=== PATIENT | female | born 1965 | race Caucasian/White ===

== ENCOUNTER → 2018-07-02 14:31 | Outpatient (CLI) | payer BC, SELFPAY ==
--- NOTE | 2018-07-02 14:48 | XR_ITS ---
XR chest 2V HISTORY: ITS.REASON: HTN ORDERING PHYSICIAN: Kentrell Ricks MD PATIENT AGE: 52 years COMPARISON: 11/01/2010 FINDINGS: The cardiomediastinal silhouette and pulmonary vascularity are within normal limits. The lungs are clear without infiltrates, suspicious nodules, or pleural effusions. No acute bony abnormalities. There are mild degenerative changes in the thoracic spine IMPRESSION: No change with no acute finding
[2018-07-02 15:06] LABS: Basophils % 0.1 % (0.1-2.0); Eosinophils % 0.1 % (0.1-12.0); Hematocrit 36.9 % (37.0-47.0); Hemoglobin 12.1 g/dL (12.2-16.2); Lymphocytes # 1.1 K/mm3 (0.7-4.5); Mean Corpuscular HGB Conc 32.8 g/dL (31.8-35.4); Mean Corpuscular Hemoglobin 28.9 pg (27.0-31.2); Mean Corpuscular Volume 88.1 fl (81-99); Mean Platelet Volume 7.4 fl (7.4-10.4); Monocytes # 0.2 K/mm3 (0.1-1.0); Monocytes % 6.7 % (1.7-9.3); Neutrophils # 2.2 K/mm3 (1.8-7.8); Neutrophils % 62.1 % (37.0-80.0); Platelet Count 166 K/mm3 (142-424); Red Blood Count 4.19 M/mm3 (4.20-5.40); Red Cell Distribution Width 13.1 % (11.5-17.5); White Blood Count 3.5 K/mm3 (4.8-10.8)
[2018-07-02 15:52] LABS: Alanine Aminotransferase 40 U/L (12-78); Albumin Level 3.7 gm/dL (3.4-5.0); Albumin/Globulin Ratio 0.9 (1.1-1.8); Alkaline Phosphatase 147 U/L (46-116); Aspartate Amino Transferase 33 U/L (15-37); Bilirubin,Total 0.3 mg/dL (0.2-1.0); Blood Urea Nitrogen 11 mg/dL (7-18); Calcium 8.7 mg/dL (8.5-10.1); Carbon Dioxide 27 mmol/L (21.0-32.0); Chloride 107 mmol/L (98-107); Creatinine,Serum 0.77 mg/dL (0.55-1.02); Estimated Glomerular Filt Rate 79 ml/min (>60); GFR (African American) 95 ML/MIN (>60); Globulin 4.1 gm/dl (1.3-3.2); Glucose 94 mg/dL (74-106); Sodium 143 mmol/L (136-145); Total Protein,Serum 7.8 gm/dL (6.4-8.2)
== END ==
PROVIDERS: PCP Family Medicine; Visit Provider Otolaryngology
DX: Z01.818 Encounter for other preprocedural examination (principal); J38.1 Polyp of vocal cord and larynx; R49.0 Dysphonia
CPT/HCPCS: 36415; 71046; 80053; 85025; 93005

== ENCOUNTER → 2018-10-05 07:30 | Outpatient (CLI) | payer BC, SELFPAY ==
[2018-10-05 08:16] LABS: Alanine Aminotransferase 40 U/L (12-78); Albumin Level 3.7 gm/dL (3.4-5.0); Alkaline Phosphatase 148 U/L (46-116); Aspartate Amino Transferase 26 U/L (15-37); Bilirubin,Total 0.6 mg/dL (0.2-1.0); Blood Urea Nitrogen 17 mg/dL (7-18); Calcium 8.8 mg/dL (8.5-10.1); Carbon Dioxide 27 mmol/L (21.0-32.0); Chloride 103 mmol/L (98-107); Chol/HDL Ratio 3.8 (1-3.5); Cholesterol 160 mg/dL (140-200); Creatinine,Serum 0.87 mg/dL (0.55-1.02); Estimated Glomerular Filt Rate 68 ml/min (>60); GFR (African American) 82 ML/MIN (>60); Globulin 3.8 gm/dl (1.3-3.2); HDL Cholesterol 42 mg/dL (29-89); LDL Cholesterol 95 mg/dL (0-130); Sodium 139 mmol/L (136-145); Total Protein,Serum 7.5 gm/dL (6.4-8.2); Triglycerides 115 mg/dL (30-200); VLDL Cholesterol 23 mg/dL (0-40)
[2018-10-05 08:36] LABS: Glucose 156 mg/dL (74-106)
[2018-10-05 15:13] LABS: Hemoglobin A1C 6.2 % (0.0-7.0)
== END ==
PROVIDERS: Visit Provider Physician Assistant
DX: R73.01 Impaired fasting glucose (principal); I10 Essential (primary) hypertension; Z13.220 Encounter for screening for lipoid disorders
CPT/HCPCS: 36415; 80053; 80061; 83036

== ENCOUNTER → 2018-11-01 15:50 | Outpatient (CLI) | payer BC, SELFPAY ==
--- NOTE | 2018-11-01 16:11 | MM_ITS ---
MM Dig screening mamm BI w/CAD CAD Screening COMPARISON: None, patient had previous mammograms at [facility] but they are not available for review INDICATION: There is no personal or family history of breast cancer TECHNIQUE: Standard CC and MLO images were obtained. R2 CAD reviewed. FINDINGS: Scattered fibroglandular densities are seen in the central portions of both breast and the findings are bilateral and symmetrical. There are multiple benign-appearing calcifications in each breast many of which appear to be secondary to secretory disease. There is no suspicious lesion and there are no suspicious microcalcifications. IMPRESSION: Fibrofatty parenchyma no suspicious lesion seen BI-RADS Category: 2 Benign Finding(s) RECOMMENDED FOLLOW-UP: 1YR - 1 YEAR FOLLOW-UP (A letter has been sent to the patient regarding results of the study.)
== END ==
PROVIDERS: PCP Family Medicine; Visit Provider Family Medicine
DX: Z12.31 Encounter for screening mammogram for malignant neoplasm of breast (principal)
CPT/HCPCS: 77067

== ENCOUNTER → 2018-11-21 15:52 | Outpatient (CLI) | payer BC, SELFPAY ==
--- NOTE | 2018-11-21 | XR_ITS ---
XR ankle LT 2V HISTORY: Pain and swelling, osteoarthritis ORDERING PHYSICIAN: France Mejia PATIENT AGE: 53 years Comparison: None FINDINGS: No fracture or dislocation. No lytic or blastic change. There is normal mineralization.. There is mild bony hypertrophic changes of the distal tibia posteriorly and at the medial malleoli region. Subcortical lucency is noted involving the medial aspect of the talar dome. This area measures approximate 7 mm and may be due to a subcortical cyst. However, an osteochondral defect is an additional consideration. MRI or CT may provide further evaluation. There is a small calcaneal spur IMPRESSION: 1. Mild degenerative change. 2. Subarticular cyst versus osteochondral defect of the medial talar dome. Consider further evaluation with MRI or CT if clinically warranted
--- NOTE | 2018-11-21 | XR_ITS ---
XR hand RT min 3V HISTORY: Pain and swelling, osteoarthritis ORDERING PHYSICIAN: France Mejia PATIENT AGE: 53 years COMPARISON: None FINDINGS: No fracture or dislocation. No lytic or blastic change. There is normal mineralization.. The joint spaces are well-preserved. No significant degenerative/arthritic changes. No erosive changes evident.. IMPRESSION: Negative, no acute finding
--- NOTE | 2018-11-21 | XR_ITS ---
XR wrist RT 2V HISTORY ITS.REASON: PAIN AND SWELLING ON JOINTS, OSTEOARTHRITIS ORDERING PHYSICIAN: France Mejia PATIENT AGE: 53 years Comparison: None FINDINGS: No fracture or dislocation. No lytic or blastic change. There is normal mineralization.. There is exostosis along the distal aspect of the radius laterally well-circumscribed etiology indeterminate. No previous exams available for comparison. There is an accessory center of ossification versus an old fracture at the ulnar side only. The joint spaces are well-preserved and no erosive changes are apparent.. IMPRESSION: No acute finding. Bony exostosis on the distal radius laterally
--- NOTE | 2018-11-21 | XR_ITS ---
XR ankle RT 2V HISTORY: Pain and swelling, osteoarthritis ORDERING PHYSICIAN: France Mejia PATIENT AGE: 53 years Comparison: None FINDINGS: No fracture or dislocation. No lytic or blastic change. There is normal mineralization.. Hypertrophic changes are present involving the tip of the medial malleolus as well as the distal aspect of the tibia. There is a prominent calcaneal spur and there are hypertrophic changes of the talonavicular joint. IMPRESSION: 1. Degenerative changes with bony hypertrophy, prominent calcaneal spur. 2. Otherwise negative
--- NOTE | 2018-11-21 | XR_ITS ---
XR hand LT min 3V HISTORY: Pain and swelling ORDERING PHYSICIAN: France Mejia PATIENT AGE: 53 years COMPARISON: None FINDINGS: No fracture or dislocation. No lytic or blastic change. There is normal mineralization.. The joint spaces are well-preserved. No significant degenerative/arthritic changes. No erosive changes evident.. IMPRESSION: Negative, no acute finding
--- NOTE | 2018-11-21 | XR_ITS ---
XR elbow LT 2V HISTORY: Pain and swelling, osteoarthritis ORDERING PHYSICIAN: France Mejia PATIENT AGE: 53 years COMPARISON: None FINDINGS: No fracture or dislocation. The joint spaces are well-preserved. Well-circumscribed lucency is noted along the medial epicondyles and could represent an old injury versus an ununited ossification center. No displaced fat pad evident. IMPRESSION: No acute finding
[2018-11-21 18:05] LABS: Erythrocyte Sedimentation Rate 60 mm/hr (0-30)
[2018-11-24 11:57] LABS: Antinuclear Antibodies, IFA Positive (.)
== END ==
PROVIDERS: Visit Provider Internal Medicine Rheumatology
DX: M19.90 Unspecified osteoarthritis, unspecified site (principal)
CPT/HCPCS: 36415; 73070; 73100; 73130; 73600; 85651; 86038; 86140

== ENCOUNTER → 2019-06-19 12:58 | Outpatient (CLI) | payer BC, SELFPAY ==
[2019-06-19 13:11] LABS: Eosinophils % 0.2 % (0.1-12.0); Hematocrit 37.4 % (37.0-47.0); Hemoglobin 12.4 g/dL (12.2-16.2); Lymphocytes # 0.9 K/mm3 (0.7-4.5); Lymphocytes % 28.2 % (10-50); Mean Corpuscular HGB Conc 33.3 g/dL (31.8-35.4); Mean Corpuscular Hemoglobin 29.8 pg (27.0-31.2); Mean Corpuscular Volume 89.7 fl (81-99); Mean Platelet Volume 9.2 fl (7.4-10.4); Monocytes # 0.3 K/mm3 (0.1-1.0); Monocytes % 8.8 % (1.7-9.3); Neutrophils % 62.8 % (37.0-80.0); Platelet Count 177 K/mm3 (142-424); Red Blood Count 4.17 M/mm3 (4.20-5.40); Red Cell Distribution Width 12.6 % (11.5-17.5); White Blood Count 3.2 K/mm3 (4.8-10.8)
[2019-06-19 13:20] LABS: C-Reactive Protein 1.8 mg/dL (0.0-0.9)
[2019-06-19 14:04] LABS: Erythrocyte Sedimentation Rate > 140 mm/hr (0-30)
== END ==
PROVIDERS: Visit Provider Orthopaedic Surgery
DX: L03.011 Cellulitis of right finger (principal); E11.9 Type 2 diabetes mellitus without complications; Z79.84 Long term (current) use of oral hypoglycemic drugs
CPT/HCPCS: 36415; 83036; 85025; 85651; 86140; 87070; 87077; 87186; 87205

== ENCOUNTER → 2019-06-19 16:08 | Outpatient (CLI) | payer BC, SELFPAY | PROVIDERS: Visit Provider Orthopaedic Surgery | DX: L03.011 Cellulitis of right finger (principal) | CPT/HCPCS: 87070; 87205 ==

== ENCOUNTER → 2019-07-02 06:59 | Outpatient (CLI) | payer BC, SELFPAY ==
[2019-07-02 07:41] LABS: Eosinophils % 0.3 % (0.1-12.0); Hematocrit 37.2 % (37.0-47.0); Hemoglobin 12.5 g/dL (12.2-16.2); Lymphocytes % 26.7 % (10-50); Mean Corpuscular HGB Conc 33.5 g/dL (31.8-35.4); Mean Corpuscular Volume 89.7 fl (81-99); Mean Platelet Volume 8.3 fl (7.4-10.4); Monocytes # 0.3 K/mm3 (0.1-1.0); Monocytes % 6.9 % (1.7-9.3); Neutrophils # 2.5 K/mm3 (1.8-7.8); Neutrophils % 66.1 % (37.0-80.0); Platelet Count 187 K/mm3 (142-424); Red Blood Count 4.15 M/mm3 (4.20-5.40); Red Cell Distribution Width 12.8 % (11.5-17.5); White Blood Count 3.7 K/mm3 (4.8-10.8)
[2019-07-02 07:50] LABS: C-Reactive Protein 0.7 mg/dL (0.0-0.9)
[2019-07-02 08:04] LABS: Alanine Aminotransferase 33 U/L (12-78); Albumin Level 3.7 gm/dL (3.4-5.0); Albumin/Globulin Ratio 1.9 (1.1-1.8); Alkaline Phosphatase 134 U/L (46-116); Anion Gap 14.2 mEq/L (5-15); Aspartate Amino Transferase 12 U/L (15-37); Bilirubin,Total 0.4 mg/dL (0.2-1.0); Blood Urea Nitrogen 21 mg/dL (7-18); Calcium 8.9 mg/dL (8.5-10.1); Carbon Dioxide 27 mmol/L (21.0-32.0); Chloride 104 mmol/L (98-107); Chol/HDL Ratio 3.8 (1-3.5); Cholesterol 162 mg/dL (140-200); Creatinine,Serum 0.95 mg/dL (0.55-1.02); Estimated Glomerular Filt Rate 62 ml/min (>60); Ferritin 218 ng/mL (8-388); GFR (African American) 74 ML/MIN (>60); Glucose 135 mg/dL (74-106); HDL Cholesterol 43 mg/dL (29-89); LDL Cholesterol 102 mg/dL (0-130); Potassium 4.2 mmoL/L (3.5-5.1); Sodium 141 mmol/L (136-145); Total Protein,Serum 5.7 gm/dL (6.4-8.2); Triglycerides 86 mg/dL (30-200); VLDL Cholesterol 17 mg/dL (0-40)
[2019-07-02 09:52] LABS: Erythrocyte Sedimentation Rate 50 mm/hr (0-30)
[2019-07-03 07:09] LABS: Iron 65 ug/dL (27-159); UIBC 215 ug/dL (131-425)
[2019-07-04 07:16] LABS: Iron Saturation 23 % (15-55); Vitamin B12 314 pg/mL (232-1245)
[2019-07-04 07:17] LABS: Vitamin D 25 Hydroxy 14.6 ng/mL (30.0-100.0)
== END ==
PROVIDERS: Internal Medicine Rheumatology; Visit Provider Physician Assistant
DX: D50.9 Iron deficiency anemia, unspecified (principal); E53.8 Deficiency of other specified B group vitamins; E55.9 Vitamin D deficiency, unspecified; I10 Essential (primary) hypertension; Z13.220 Encounter for screening for lipoid disorders
CPT/HCPCS: 36415; 80053; 80061; 82607; 82652; 82728; 83540; 83550; 85025; 85651; 86140

== ENCOUNTER → 2019-10-21 15:38 | Outpatient (CLI) | payer BC, SELFPAY ==
[2019-10-21 15:55] LABS: Basophils % 0.1 % (0.1-2.0); Eosinophils % 0.5 % (0.1-12.0); Hematocrit 40.5 % (37.0-47.0); Hemoglobin 12.6 g/dL (12.2-16.2); Lymphocytes # 0.9 K/mm3 (0.7-4.5); Lymphocytes % 18.2 % (10-50); Mean Corpuscular HGB Conc 31.2 g/dL (31.8-35.4); Mean Corpuscular Hemoglobin 28.3 pg (27.0-31.2); Mean Corpuscular Volume 90.6 fl (81-99); Mean Platelet Volume 9.4 fl (7.4-10.4); Monocytes # 0.3 K/mm3 (0.1-1.0); Monocytes % 6.8 % (1.7-9.3); Neutrophils # 3.6 K/mm3 (1.8-7.8); Neutrophils % 74.4 % (37.0-80.0); Platelet Count 168 K/mm3 (142-424); Red Blood Count 4.47 M/mm3 (4.20-5.40); Red Cell Distribution Width 13.4 % (11.5-17.5); White Blood Count 4.8 K/mm3 (4.8-10.8)
[2019-10-21 16:21] LABS: Erythrocyte Sedimentation Rate 71 mm/hr (0-30)
[2019-10-21 17:16] LABS: Alanine Aminotransferase 22 U/L (12-78); Alkaline Phosphatase 147 U/L (46-116); Anion Gap 12.5 mEq/L (5-15); Aspartate Amino Transferase 18 U/L (15-37); Bilirubin,Total 0.2 mg/dL (0.2-1.0); Blood Urea Nitrogen 16 mg/dL (7-18); Calcium 8.7 mg/dL (8.5-10.1); Carbon Dioxide 29 mmol/L (21.0-32.0); Chloride 105 mmol/L (98-107); Creatinine,Serum 0.68 mg/dL (0.55-1.02); Estimated Glomerular Filt Rate 90 ml/min (>60); GFR (African American) 109 ML/MIN (>60); Glucose 84 mg/dL (74-106); Potassium 4.5 mmoL/L (3.5-5.1); Sodium 142 mmol/L (136-145); Total Protein,Serum 7.1 gm/dL (6.4-8.2)
[2019-10-21 17:46] LABS: Albumin Level 3.8 gm/dL (3.4-5.0); Albumin/Globulin Ratio 1.2 (1.1-1.8); C-Reactive Protein < 0.2 mg/dL (0.0-0.9); Globulin 3.3 gm/dl (1.3-3.2)
== END ==
PROVIDERS: Visit Provider Internal Medicine Rheumatology
DX: M06.9 Rheumatoid arthritis, unspecified (principal); Z79.899 Other long term (current) drug therapy
CPT/HCPCS: 36415; 80053; 85025; 85651; 86140

== ENCOUNTER → 2020-01-31 17:00 | Outpatient (CLI) | payer BC, SELFPAY ==
[2020-01-31 17:31] LABS: Basophils % 0.1 % (0.1-2.0); Eosinophils % 0.5 % (0.1-12.0); Hematocrit 36.6 % (37.0-47.0); Hemoglobin 12.1 g/dL (12.2-16.2); Lymphocytes % 20.8 % (10-50); Mean Corpuscular Hemoglobin 29.4 pg (27.0-31.2); Mean Corpuscular Volume 89.2 fl (81-99); Mean Platelet Volume 9.3 fl (7.4-10.4); Monocytes # 0.3 K/mm3 (0.1-1.0); Monocytes % 5.3 % (1.7-9.3); Neutrophils # 3.7 K/mm3 (1.8-7.8); Neutrophils % 73.2 % (37.0-80.0); Platelet Count 153 K/mm3 (142-424); Red Blood Count 4.11 M/mm3 (4.20-5.40)
[2020-01-31 17:38] LABS: Alanine Aminotransferase 26 U/L (12-78); Albumin Level 4.4 g/dl (3.5-5.0); Albumin/Globulin Ratio 1.5 (1.1-1.8); Alkaline Phosphatase 146 U/L (38-126); Anion Gap 9.1 mEq/L (5-15); Aspartate Amino Transferase 32 U/L (14-36); Bilirubin,Total 0.2 mg/dl (0.2-1.3); Blood Urea Nitrogen 29 mg/dl (7-17); Calcium 9.5 mg/dl (8.4-10.2); Carbon Dioxide 29 mmol/L (22.0-30.0); Chloride 102 mmol/L (98-107); Estimated Glomerular Filt Rate 65 ml/min (>60); GFR (African American) 79 ML/MIN (>60); Glucose 92 mg/dl (74-100); Potassium 4.1 mmoL/L (3.5-5.1); Sodium 136 mmol/L (136-145); Total Protein,Serum 7.4 g/dl (6.3-8.2)
[2020-01-31 17:43] LABS: C-Reactive Protein 7.7 mg/L (0-4)
[2020-01-31 17:56] LABS: Erythrocyte Sedimentation Rate 60 mm/hr (0-30)
== END ==
PROVIDERS: Visit Provider Internal Medicine Rheumatology
DX: M06.9 Rheumatoid arthritis, unspecified (principal); Z79.899 Other long term (current) drug therapy
CPT/HCPCS: 36415; 80053; 85025; 85651; 86140

== ENCOUNTER → 2020-03-03 16:14 | Outpatient (CLI) | payer BC, SELFPAY ==
--- NOTE | 2020-03-03 16:18 | MM_ITS ---
PROCEDURE: MM DIG SCREENING MAMM BI W/CAD Digital Breast Tomosynthesis Included CLINICAL INDICATION: SCREENING There is no personal or family history of breast cancer. COMPARISON: [facility] MM Dig screening mamm BI w/CAD from 11/01/2018 TECHNIQUE: Standard CC and MLO images and 3D Tomosynthesis was obtained. R2 CAD reviewed. FINDINGS: Minimal scattered fibroglandular densities are seen throughout both breasts on a background of fatty breast parenchyma. Multiple somewhat tubular calcifications are again seen typical of secretory disease. There is no suspicious lesion in either breast and no suspicious microcalcifications. IMPRESSION: Stable exam with no suspicious lesions seen BI-RAD Category: 2 Benign Finding(s) FOLLOW-UP: 1YR 1 Year Follow-up (A letter has been sent to the patient regarding results of the study.) Dictated by: Dr. Vik Salinas MD 03/05/2020 13:[address] Vik Salinas MD in [place] 03/05/2020 13:59
--- NOTE | 2020-03-03 16:19 | XR_ITS ---
PROCEDURE: XR DEXA AXIAL SKELETON CLINICAL HISTORY: POST MENOPAUSAL COMPARISON: No exams were available for comparison FINDINGS: Right femoral neck density is 0.678 grams/centimeters sq with T-score of -1 point Left femoral neck density is 0.663 grams/centimeters sq with a T-score of -1.7 L1-L4 density is 0.774 grams/centimeters sq with a T-score of -2.5 indicating osteoporosis. IMPRESSION: Osteoporosis with high fracture risk. Treatment advised. Suggest follow-up exam in 1 year Dictated by: Mega Tapia MD 03/03/2020 17:09 Electronically signed by Mega Tapia MD in [place] 03/03/2020 17:09
== END ==
PROVIDERS: PCP Family Medicine; Visit Provider Physician Assistant
DX: Z12.31 Encounter for screening mammogram for malignant neoplasm of breast (principal); Z78.0 Asymptomatic menopausal state
CPT/HCPCS: 77063; 77067; 77080

== ENCOUNTER → 2020-03-31 08:49 | Outpatient (CLI) | payer BC, SELFPAY ==
[2020-04-04 06:50] LABS: QuantiFERON-TB Gold Plus Negative (Negative)
== END ==
PROVIDERS: Visit Provider Internal Medicine Rheumatology
DX: Z51.81 Encounter for therapeutic drug level monitoring (principal); M06.9 Rheumatoid arthritis, unspecified
CPT/HCPCS: 36415; 86480

== ENCOUNTER → 2020-08-27 16:13 | Outpatient (CLI) | payer BC, SELFPAY ==
[2020-08-27 16:25] LABS: Basophils % 0.1 % (0.1-2.0); Eosinophils % 0.1 % (0.1-12.0); Hematocrit 38.6 % (37.0-47.0); Hemoglobin 12.9 g/dL (12.2-16.2); Lymphocytes # 1.1 K/mm3 (0.7-4.5); Mean Corpuscular HGB Conc 33.3 g/dL (31.8-35.4); Mean Corpuscular Hemoglobin 30.3 pg (27.0-31.2); Mean Platelet Volume 10.3 fl (7.4-10.4); Monocytes # 0.3 K/mm3 (0.1-1.0); Monocytes % 8.9 % (1.7-9.3); Neutrophils # 2.3 K/mm3 (1.8-7.8); Platelet Count 155 K/mm3 (142-424); Red Blood Count 4.24 M/mm3 (4.20-5.40); Red Cell Distribution Width 13.5 % (11.5-17.5); White Blood Count 3.8 K/mm3 (4.8-10.8)
[2020-08-27 17:34] LABS: Erythrocyte Sedimentation Rate 124 mm/hr (0-30)
[2020-08-27 18:13] LABS: Chloride 104 mmol/L (98-107); Potassium 4.1 mmoL/L (3.5-5.1); Sodium 141 mmol/L (136-145)
[2020-08-27 18:16] LABS: Alanine Aminotransferase 24 U/L (12-78); Albumin Level 4.4 g/dl (3.5-5.0); Albumin/Globulin Ratio 1.4 (1.1-1.8); Alkaline Phosphatase 117 U/L (38-126); Anion Gap 13.1 mEq/L (5-15); Aspartate Amino Transferase 29 U/L (14-36); Bilirubin,Total 0.3 mg/dl (0.2-1.3); Blood Urea Nitrogen 22 mg/dl (7-17); Carbon Dioxide 28 mmol/L (22.0-30.0); Estimated Glomerular Filt Rate 74 ml/min (>60); GFR (African American) 90 ML/MIN (>60); Globulin 3.2 g/dL (1.3-3.2); Total Protein,Serum 7.6 g/dl (6.3-8.2)
[2020-08-27 18:17] LABS: Calcium 9.5 mg/dl (8.4-10.2); Glucose 92 mg/dl (74-100)
[2020-08-27 18:22] LABS: C-Reactive Protein 4.2 mg/L (0-4)
== END ==
PROVIDERS: Visit Provider Internal Medicine Rheumatology
DX: M06.9 Rheumatoid arthritis, unspecified (principal); Z79.899 Other long term (current) drug therapy
CPT/HCPCS: 36415; 80053; 85025; 85651; 86140

== ENCOUNTER → 2020-09-26 08:13 | Outpatient (CLI) | payer BC, SELFPAY ==
[2020-09-26 11:59] LABS: Hemoglobin A1C 5.5 % (4.0-6.0)
[2020-09-26 13:28] LABS: Chloride 104 mmol/L (98-107); Potassium 4.3 mmoL/L (3.5-5.1); Sodium 138 mmol/L (136-145)
[2020-09-26 13:30] LABS: Blood Urea Nitrogen 20 mg/dl (7-17); Estimated Glomerular Filt Rate 87 ml/min (>60); GFR (African American) 105 ML/MIN (>60)
[2020-09-26 13:31] LABS: Alanine Aminotransferase 34 U/L (12-78); Albumin Level 4.3 g/dl (3.5-5.0); Albumin/Globulin Ratio 1.4 (1.1-1.8); Alkaline Phosphatase 141 U/L (38-126); Anion Gap 12.3 mEq/L (5-15); Aspartate Amino Transferase 29 U/L (14-36); Bilirubin,Total 0.5 mg/dl (0.2-1.3); Calcium 9.2 mg/dl (8.4-10.2); Carbon Dioxide 26 mmol/L (22.0-30.0); Cholesterol 201 mg/dl (140-200); Globulin 3.1 g/dL (1.3-3.2); Glucose 116 mg/dl (74-100); Iron 81 ug/dL (37-170); Total Protein,Serum 7.4 g/dl (6.3-8.2); Triglycerides 124 mg/dl (30-150); VLDL Cholesterol 25 mg/dL (0-40)
[2020-09-26 13:32] LABS: Chol/HDL Ratio 4.2 (1-3.5); HDL Cholesterol 48 mg/dl (40-60)
[2020-09-26 13:43] LABS: Direct LDL Cholesterol 129.99 mg/dL (100-129)
[2020-09-26 13:48] LABS: 25-OH Vitamin D, Total 26.9 ng/mL (30-100)
[2020-09-26 14:06] LABS: Ferritin 115 ng/ml (11.1-264)
[2020-09-26 18:14] LABS: Vitamin B12 527 pg/mL (239-931)
== END ==
PROVIDERS: Visit Provider Physician Assistant
DX: D50.9 Iron deficiency anemia, unspecified (principal); E55.9 Vitamin D deficiency, unspecified; E53.8 Deficiency of other specified B group vitamins; I10 Essential (primary) hypertension; R73.01 Impaired fasting glucose; Z13.220 Encounter for screening for lipoid disorders; Z79.899 Other long term (current) drug therapy
CPT/HCPCS: 36415; 80053; 80061; 82306; 82607; 82728; 83036; 83540

== ENCOUNTER → 2020-12-19 07:39 | Outpatient (CLI) | payer BC, SELFPAY ==
[2020-12-19 08:31] LABS: Basophils % 0.2 % (0.1-2.0); Eosinophils % 0.3 % (0.1-12.0); Hematocrit 38.5 % (37.0-47.0); Hemoglobin 12.6 g/dL (12.2-16.2); Lymphocytes % 28.2 % (10-50); Mean Corpuscular HGB Conc 32.7 g/dL (31.8-35.4); Mean Corpuscular Hemoglobin 29.5 pg (27.0-31.2); Mean Corpuscular Volume 90.2 fl (81-99); Mean Platelet Volume 8.9 fl (7.4-10.4); Monocytes # 0.2 K/mm3 (0.1-1.0); Monocytes % 6.5 % (1.7-9.3); Neutrophils # 2.4 K/mm3 (1.8-7.8); Neutrophils % 64.8 % (37.0-80.0); Platelet Count 168 K/mm3 (142-424); Red Blood Count 4.27 M/mm3 (4.20-5.40); Red Cell Distribution Width 12.6 % (11.5-17.5); White Blood Count 3.6 K/mm3 (4.8-10.8)
[2020-12-19 09:13] LABS: Alanine Aminotransferase 29 U/L (12-78); Albumin Level 4.3 g/dl (3.5-5.0); Albumin/Globulin Ratio 1.3 (1.1-1.8); Alkaline Phosphatase 137 U/L (38-126); Anion Gap 10.2 mEq/L (5-15); Aspartate Amino Transferase 31 U/L (14-36); Bilirubin,Total 0.4 mg/dl (0.2-1.3); Blood Urea Nitrogen 25 mg/dl (7-17); Calcium 9.2 mg/dl (8.4-10.2); Carbon Dioxide 27 mmol/L (22.0-30.0); Chloride 104 mmol/L (98-107); Estimated Glomerular Filt Rate 65 ml/min (>60); GFR (African American) 79 ML/MIN (>60); Globulin 3.4 g/dL (1.3-3.2); Glucose 117 mg/dl (74-100); Potassium 4.2 mmoL/L (3.5-5.1); Sodium 137 mmol/L (136-145); Total Protein,Serum 7.7 g/dl (6.3-8.2)
[2020-12-19 09:18] LABS: C-Reactive Protein 7.3 mg/L (0-4)
[2020-12-19 10:35] LABS: Erythrocyte Sedimentation Rate 82 mm/hr (0-30)
== END ==
PROVIDERS: Visit Provider Internal Medicine Rheumatology
DX: M06.9 Rheumatoid arthritis, unspecified (principal); Z79.899 Other long term (current) drug therapy
CPT/HCPCS: 36415; 80053; 85025; 85651; 86140

== ENCOUNTER → 2021-04-21 08:02 | Outpatient (CLI) | payer BC, SELFPAY ==
[2021-04-21 08:32] LABS: Basophils % 0.1 % (0.1-2.0); Eosinophils % 0.4 % (0.1-12.0); Hematocrit 36.3 % (37.0-47.0); Hemoglobin 12.3 g/dL (12.2-16.2); Lymphocytes # 0.8 K/mm3 (0.7-4.5); Lymphocytes % 30.5 % (10-50); Mean Corpuscular Hemoglobin 30.4 pg (27.0-31.2); Mean Corpuscular Volume 89.5 fl (81-99); Monocytes # 0.2 K/mm3 (0.1-1.0); Monocytes % 8.3 % (1.7-9.3); Neutrophils # 1.6 K/mm3 (1.8-7.8); Neutrophils % 60.7 % (37.0-80.0); Platelet Count 142 K/mm3 (142-424); Red Blood Count 4.05 M/mm3 (4.20-5.40); Red Cell Distribution Width 13.1 % (11.5-17.5); White Blood Count 2.6 K/mm3 (4.8-10.8)
[2021-04-21 08:38] LABS: Chloride 106 mmol/L (98-107); Potassium 4.1 mmoL/L (3.5-5.1); Sodium 141 mmol/L (136-145)
[2021-04-21 08:41] LABS: Alanine Aminotransferase 28 U/L (12-78); Albumin Level 4.5 g/dl (3.5-5.0); Albumin/Globulin Ratio 1.3 (1.1-1.8); Alkaline Phosphatase 128 U/L (38-126); Anion Gap 12.1 mEq/L (5-15); Aspartate Amino Transferase 30 U/L (14-36); Bilirubin,Total 0.4 mg/dl (0.2-1.3); Blood Urea Nitrogen 24 mg/dl (7-17); Calcium 9.4 mg/dl (8.4-10.2); Carbon Dioxide 27 mmol/L (22.0-30.0); Estimated Glomerular Filt Rate 65 ml/min (>60); GFR (African American) 79 ML/MIN (>60); Globulin 3.5 g/dL (1.3-3.2); Glucose 129 mg/dl (74-100)
[2021-04-21 10:49] LABS: C-Reactive Protein 5.4 mg/L (0-4)
[2021-04-21 14:46] LABS: Erythrocyte Sedimentation Rate 83 mm/hr (0-30)
[2021-04-25 14:24] LABS: QuantiFERON-TB Gold Plus Negative (Negative)
== END ==
PROVIDERS: Visit Provider Internal Medicine Rheumatology
DX: Z51.81 Encounter for therapeutic drug level monitoring (principal); M19.90 Unspecified osteoarthritis, unspecified site; M06.89 Other specified rheumatoid arthritis, multiple sites
CPT/HCPCS: 36415; 80053; 85025; 85651; 86140; 86480

== ENCOUNTER → 2021-05-04 15:04 | Outpatient (CLI) | payer BC, SELFPAY ==
--- NOTE | 2021-05-04 15:08 | MM_ITS ---
PROCEDURE: MM DIG SCREENING MAMM BI W/CAD Digital Breast Tomosynthesis Included CLINICAL INDICATION: SCREENING COMPARISON: [facility] MM Dig screening mamm BI w/CAD from 11/01/2018 MG MM DIG SCREENING MAMM BI W/CAD from 03/03/2020 TECHNIQUE: Standard CC and MLO images and 3D Tomosynthesis was obtained. R2 CAD reviewed. FINDINGS: Average fibroglandular tissue. Diffuse bilateral benign secretory calcifications. No malignant appearing mass or malignant-appearing microcalcification with no significant change. IMPRESSION: No evidence of malignancy BI-RAD Category: 2 Benign Finding FOLLOW-UP: 1 YR 1 Year Follow-up (A letter has been sent to the patient regarding results of the study.) Dictated by: Mega Tapia MD 05/05/2021 09:42 Mega Tapia MD in [place] 05/05/2021 09:42
--- NOTE | 2021-05-04 15:08 | CT_ITS ---
PROCEDURE: CT SOFT TISSUE NECK WO CON CLINICAL HISTORY: MASS OF NECK COMPARISON: No exams were available for comparison TECHNIQUE: Oral Contrast: None IV Contrast: None Axial images obtained with sagittal and coronal reformats. All CT scans at the facility use one or more dose reduction, viz: automated exposure control, ma/kV adjustment per patient size (including targeted exams where dose is matched to indication, i.e. head), or iterative reconstruction technique. FINDINGS: Small retention cyst is present in the left sphenoid sinus posteriorly at approximately 8 mm. No sinus air-fluid levels. Mastoid sinuses have an unremarkable appearance. The mid and inferior aspect of the globes are unremarkable with superior aspect not imaged. No nasopharyngeal mass. The pharynx and glottic region and epiglottis are unremarkable. No thyroid mass evident. The trachea is slightly deviated toward the left in the neck. No underlying paratracheal mass however. A BB is placed along the right neck anteriorly at the level of the hyoid. Just underneath the BB is the submandibular gland which is slightly more prominent than the left side. There are few scattered small nodes lymph nodes in the submandibular region as well. No dominant adenopathy is apparent. Lung apices are clear. The parotid glands are unremarkable. IMPRESSION: The right submandibular gland is slightly more prominent than the left and may account for the palpable abnormality There are few small bilateral submandibular lymph nodes but no dominant adenopathy. Left sphenoid sinus retention cyst Dictated by: Mega Tapia MD 05/04/2021 16:47 Mega Tapia MD in [place] 05/04/2021 16:47
== END ==
PROVIDERS: PCP Family Medicine; Visit Provider Physician Assistant
DX: R22.1 Localized swelling, mass and lump, neck (principal); Z12.31 Encounter for screening mammogram for malignant neoplasm of breast
CPT/HCPCS: 70490; 77063; 77067

== ENCOUNTER → 2021-10-11 16:11 | Outpatient (CLI) | payer BC, SELFPAY ==
[2021-10-11 16:34] LABS: Basophils % 0.3 % (0.1-2.0); Eosinophils # 0.1 K/mm3 (0.0-0.4); Eosinophils % 2.5 % (0.1-12.0); Hematocrit 39.5 % (37.0-47.0); Hemoglobin 13.4 g/dL (12.2-16.2); Lymphocytes # 0.9 K/mm3 (0.7-4.5); Lymphocytes % 20.3 % (10-50); Mean Corpuscular HGB Conc 33.9 g/dL (31.8-35.4); Mean Corpuscular Hemoglobin 30.7 pg (27.0-31.2); Mean Corpuscular Volume 90.4 fl (81-99); Mean Platelet Volume 8.9 fl (7.4-10.4); Monocytes # 0.3 K/mm3 (0.1-1.0); Monocytes % 6.3 % (1.7-9.3); Neutrophils # 3.2 K/mm3 (1.8-7.8); Neutrophils % 70.6 % (37.0-80.0); Platelet Count 174 K/mm3 (142-424); Red Blood Count 4.37 M/mm3 (4.20-5.40); Red Cell Distribution Width 12.7 % (11.5-17.5); White Blood Count 4.6 K/mm3 (4.8-10.8)
[2021-10-11 17:15] LABS: Erythrocyte Sedimentation Rate 57 mm/hr (0-30)
[2021-10-11 17:26] LABS: Chloride 100 mmol/L (98-107); Sodium 139 mmol/L (136-145)
[2021-10-11 17:27] LABS: Potassium 3.7 mmoL/L (3.5-5.1)
[2021-10-11 17:29] LABS: Alanine Aminotransferase 24 U/L (12-78); Alkaline Phosphatase 139 U/L (38-126); Aspartate Amino Transferase 31 U/L (14-36); Bilirubin,Total 0.3 mg/dl (0.2-1.3); Blood Urea Nitrogen 23 mg/dl (7-17); Estimated Glomerular Filt Rate 65 ml/min (>60); GFR (African American) 78 ML/MIN (>60)
[2021-10-11 17:30] LABS: Albumin Level 4.5 g/dl (3.5-5.0); Albumin/Globulin Ratio 1.4 (1.1-1.8); Anion Gap 14.7 mEq/L (5-15); Calcium 9.6 mg/dl (8.4-10.2); Carbon Dioxide 28 mmol/L (22.0-30.0); Globulin 3.2 g/dL (1.3-3.2); Glucose 110 mg/dl (74-100); Total Protein,Serum 7.7 g/dl (6.3-8.2)
[2021-10-11 17:35] LABS: C-Reactive Protein 10.2 mg/L (0-4)
== END ==
PROVIDERS: Visit Provider Internal Medicine Rheumatology
DX: M06.9 Rheumatoid arthritis, unspecified (principal); Z79.899 Other long term (current) drug therapy
CPT/HCPCS: 36415; 80053; 85025; 85651; 86140

== ENCOUNTER → 2022-02-26 10:43 | Outpatient (CLI) | payer BC, SELFPAY ==
[2022-02-26 11:25] LABS: Basophils % 0.5 % (0.1-2.0); Eosinophils % 0.3 % (0.1-12.0); Hematocrit 36.1 % (37.0-47.0); Lymphocytes # 0.8 K/mm3 (0.7-4.5); Lymphocytes % 23.2 % (10-50); Mean Corpuscular HGB Conc 33.3 g/dL (31.8-35.4); Mean Corpuscular Hemoglobin 30.7 pg (27.0-31.2); Mean Corpuscular Volume 92.3 fl (81-99); Mean Platelet Volume 9.9 fl (7.4-10.4); Monocytes # 0.3 K/mm3 (0.1-1.0); Monocytes % 9.8 % (1.7-9.3); Neutrophils # 2.2 K/mm3 (1.8-7.8); Neutrophils % 66.3 % (37.0-80.0); Platelet Count 140 K/mm3 (142-424); Red Blood Count 3.91 M/mm3 (4.20-5.40); Red Cell Distribution Width 13.2 % (11.5-17.5); White Blood Count 3.3 K/mm3 (4.8-10.8)
[2022-02-26 11:56] LABS: Erythrocyte Sedimentation Rate 62 mm/hr (0-30)
[2022-02-26 12:05] LABS: Chloride 107 mmol/L (98-107); Potassium 3.9 mmoL/L (3.5-5.1); Sodium 140 mmol/L (136-145)
[2022-02-26 12:07] LABS: Bilirubin,Unconjugated 0.2 mg/dL (0.0-1.1); Blood Urea Nitrogen 22 mg/dl (7-17); Estimated Glomerular Filt Rate 74 ml/min (>60); GFR (African American) 90 ML/MIN (>60)
[2022-02-26 12:08] LABS: Alanine Aminotransferase 36 U/L (12-78); Albumin Level 3.9 g/dl (3.5-5.0); Albumin/Globulin Ratio 1.4 (1.1-1.8); Alkaline Phosphatase 141 U/L (38-126); Anion Gap 7.9 mEq/L (5-15); Aspartate Amino Transferase 32 U/L (14-36); Bilirubin,Direct 0.1 mg/dl (0.0-0.4); Bilirubin,Indirect 0.2 mg/dL (0.0-0.9); Bilirubin,Total 0.3 mg/dl (0.2-1.3); Calcium 9.2 mg/dl (8.4-10.2); Carbon Dioxide 29 mmol/L (22.0-30.0); Globulin 2.7 g/dL (1.3-3.2); Glucose 94 mg/dl (74-100); Total Protein,Serum 6.6 g/dl (6.3-8.2)
== END ==
PROVIDERS: Visit Provider Internal Medicine Rheumatology
DX: Z79.899 Other long term (current) drug therapy (principal)
CPT/HCPCS: 36415; 80053; 80076; 85025; 85651; 86140

== ENCOUNTER → 2022-04-23 08:25 | Outpatient (CLI) | payer BC, SELFPAY ==
[2022-04-23 09:11] LABS: Basophils # 0.2 K/mm3 (0-0.2); Basophils % 4.7 % (0.1-2.0); Eosinophils % 0.4 % (0.1-12.0); Hematocrit 38.5 % (37.0-47.0); Hemoglobin 11.8 g/dL (12.2-16.2); Lymphocytes # 0.6 K/mm3 (0.7-4.5); Lymphocytes % 18.2 % (10-50); Mean Corpuscular HGB Conc 30.6 g/dL (31.8-35.4); Mean Corpuscular Hemoglobin 28.7 pg (27.0-31.2); Mean Corpuscular Volume 93.9 fl (81-99); Mean Platelet Volume 10.1 fl (7.4-10.4); Monocytes # 0.2 K/mm3 (0.1-1.0); Monocytes % 6.3 % (1.7-9.3); Neutrophils # 2.5 K/mm3 (1.8-7.8); Neutrophils % 75.1 % (37.0-80.0); Platelet Count 140 K/mm3 (142-424); Red Cell Distribution Width 13.1 % (11.5-17.5); White Blood Count 3.3 K/mm3 (4.8-10.8)
[2022-04-23 09:41] LABS: Hemoglobin A1C 5.7 % (4.0-6.0)
[2022-04-23 09:46] LABS: Iron 50 ug/dL (37-170)
[2022-04-23 09:47] LABS: Chol/HDL Ratio 4.2 (1-3.5); Cholesterol 178 mg/dl (140-200); HDL Cholesterol 42 mg/dl (40-60); Triglycerides 132 mg/dl (30-150); VLDL Cholesterol 26 mg/dL (0-40)
[2022-04-23 09:57] LABS: Direct LDL Cholesterol 112.28 mg/dL (100-129)
[2022-04-23 10:05] LABS: 25-OH Vitamin D, Total 27.4 ng/mL (30-100)
[2022-04-23 10:22] LABS: Ferritin 89.3 ng/ml (11.1-264)
[2022-04-23 11:27] LABS: Vitamin B12 408 pg/mL (239-931)
[2022-04-25 23:21] LABS: Chloride 104 mmol/L (98-107); Potassium 3.8 mmoL/L (3.5-5.1); Sodium 136 mmol/L (136-145)
[2022-04-25 23:23] LABS: Blood Urea Nitrogen 22 mg/dl (7-17); Estimated Glomerular Filt Rate 74 ml/min (>60); GFR (African American) 90 ML/MIN (>60)
[2022-04-25 23:24] LABS: Alanine Aminotransferase 30 U/L (12-78); Albumin Level 3.9 g/dl (3.5-5.0); Albumin/Globulin Ratio 1.3 (1.1-1.8); Alkaline Phosphatase 146 U/L (38-126); Anion Gap 8.8 mEq/L (5-15); Aspartate Amino Transferase 30 U/L (14-36); Bilirubin,Total 0.4 mg/dl (0.2-1.3); Calcium 9.1 mg/dl (8.4-10.2); Carbon Dioxide 27 mmol/L (22.0-30.0); Glucose 141 mg/dl (74-100); Total Protein,Serum 6.9 g/dl (6.3-8.2)
== END ==
PROVIDERS: PCP Family Medicine; Visit Provider Physician Assistant
DX: D50.9 Iron deficiency anemia, unspecified (principal); E53.8 Deficiency of other specified B group vitamins; E55.9 Vitamin D deficiency, unspecified; R73.01 Impaired fasting glucose; Z13.220 Encounter for screening for lipoid disorders; Z79.899 Other long term (current) drug therapy
CPT/HCPCS: 36415; 80053; 80061; 82306; 82607; 82728; 83036; 83540; 85025

== ENCOUNTER → 2022-09-22 16:18 | Outpatient (CLI) | payer BC, SELFPAY ==
--- NOTE | 2022-09-22 16:22 | MM_ITS ---
PROCEDURE INFORMATION: Exam: MG Bilateral Screening 3D Mammography Exam date and time: 09/22/2022 4:15 PM Age: 57 years old Clinical indication: Screening examination. No family history of breast cancer. TECHNIQUE: Imaging protocol: Bilateral Screening tomosynthesis and 2D mammography including computer-aided detection (CAD) when performed. COMPARISON: 1. MG MM DIG SCREENING MAMM BI W/CAD 05/04/2021 3:30 PM 2. MG MM DIG SCREENING MAMM BI W/CAD 03/03/2020 4:24 PM 3. MG [facility] MM Dig screening mamm BI w/CAD 11/01/2018 4:25 PM FINDINGS: MAMMOGRAPHY: Breast composition: There are scattered areas of fibroglandular density. Mass: None. Architectural distortion: None. Calcifications: No significant change in extensive bilateral secretory type calcifications. No suspicious calcifications. Asymmetric density: None. Skin thickening: None. Axillary adenopathy: None. IMPRESSION: No mammographic evidence of malignancy. Annual screening is recommended unless otherwise clinically indicated. ASSESSMENT: BI-RADS Category 2: Benign
== END ==
PROVIDERS: PCP Family Medicine; Visit Provider Family Medicine
DX: Z12.31 Encounter for screening mammogram for malignant neoplasm of breast (principal)
CPT/HCPCS: 77063; 77067

== ENCOUNTER → 2022-10-22 08:47 | Outpatient (CLI) | payer BC, SELFPAY ==
[2022-10-22 09:25] LABS: Alanine Aminotransferase 33 U/L (12-78); Albumin Level 4.1 g/dl (3.5-5.0); Albumin/Globulin Ratio 1.4 (1.1-1.8); Alkaline Phosphatase 128 U/L (38-126); Aspartate Amino Transferase 35 U/L (14-36); Bilirubin,Total 0.4 mg/dl (0.2-1.3); Blood Urea Nitrogen 23 mg/dl (7-17); Calcium 8.7 mg/dl (8.4-10.2); Carbon Dioxide 26 mmol/L (22.0-30.0); Chloride 107 mmol/L (98-107); Estimated Glomerular Filt Rate 86 ml/min (>60); GFR (African American) 104 ML/MIN (>60); Globulin 2.9 g/dL (1.3-3.2); Glucose 122 mg/dl (74-100); Hemoglobin A1C 6.2 % (4.0-6.0); Sodium 140 mmol/L (136-145)
[2022-10-22 09:52] LABS: Anion Gap 11.6 mEq/L (5-15); Potassium 4.6 mmoL/L (3.5-5.1)
[2022-10-22 09:54] LABS: Iron 50 ug/dL (37-170)
[2022-10-22 10:12] LABS: Ferritin 61.3 ng/ml (11.1-264)
[2022-10-22 10:15] LABS: Vitamin B12 516 pg/mL (239-931)
== END ==
PROVIDERS: PCP Physician Assistant; Visit Provider Physician Assistant
DX: I10 Essential (primary) hypertension (principal); D50.9 Iron deficiency anemia, unspecified; E53.8 Deficiency of other specified B group vitamins; E55.9 Vitamin D deficiency, unspecified; R73.01 Impaired fasting glucose
CPT/HCPCS: 36415; 80053; 82306; 82607; 82728; 83036; 83540

== ENCOUNTER → 2023-03-02 16:12 | Outpatient (CLI) | payer BC, SELFPAY ==
--- NOTE | 2023-03-02 16:17 | XR_ITS ---
PROCEDURE INFORMATION: Exam: XR Right Knee Exam date and time: 03/02/2023 4:20 PM Age: 57 years old Clinical indication: Pain; Knee; Right; Additional info: RT knee pain for 1 week, nki TECHNIQUE: Imaging protocol: Radiologic exam of the right knee. Views: 3 views. COMPARISON: CR [id number] XR ankle RT 2V 11/21/2018 4:38 PM FINDINGS: Bones/joints: Advanced degenerative changes of the medial compartment with joint narrowing, vacuum phenomenon and spurring. [id number] degenerative changes of the patellofemoral joint and mild degenerative changes laterally. No fracture. Soft tissues: Normal. IMPRESSION: Degenerative changes. No acute abnormality.
[2023-03-02 17:40] LABS: Basophils % 0.3 % (0.1-2.0); Eosinophils % 0.3 % (0.1-12.0); Hemoglobin 12.7 g/dL (12.2-16.2); Lymphocytes % 23.4 % (10-50); Mean Corpuscular HGB Conc 33.3 g/dL (31.8-35.4); Mean Corpuscular Hemoglobin 30.3 pg (27.0-31.2); Mean Platelet Volume 9.9 fl (7.4-10.4); Monocytes # 0.4 K/mm3 (0.1-1.0); Neutrophils # 2.7 K/mm3 (1.8-7.8); Platelet Count 172 K/mm3 (142-424); Red Blood Count 4.18 M/mm3 (4.20-5.40); Red Cell Distribution Width 13.1 % (11.5-17.5)
[2023-03-02 17:44] LABS: Alanine Aminotransferase 39 U/L (12-78); Albumin Level 4.3 g/dl (3.5-5.0); Albumin/Globulin Ratio 1.3 (1.1-1.8); Alkaline Phosphatase 176 U/L (38-126); Anion Gap 19.1 mEq/L (5-15); Aspartate Amino Transferase 41 U/L (14-36); Bilirubin,Total 0.2 mg/dl (0.2-1.3); Blood Urea Nitrogen 30 mg/dl (7-17); Calcium 8.9 mg/dl (8.4-10.2); Carbon Dioxide 25 mmol/L (22.0-30.0); Chloride 99 mmol/L (98-107); Estimated Glomerular Filt Rate 51 ml/min (>60); GFR (African American) 62 ML/MIN (>60); Globulin 3.2 g/dL (1.3-3.2); Glucose 104 mg/dl (74-100); Potassium 4.1 mmoL/L (3.5-5.1); Sodium 139 mmol/L (136-145); Total Protein,Serum 7.5 g/dl (6.3-8.2)
[2023-03-02 17:50] LABS: C-Reactive Protein 7.1 mg/L (0-4)
[2023-03-02 18:29] LABS: Erythrocyte Sedimentation Rate 90 mm/hr (0-30)
== END ==
PROVIDERS: PCP Physician Assistant; Visit Provider Internal Medicine Rheumatology
DX: M06.9 Rheumatoid arthritis, unspecified (principal); M25.561 Pain in right knee; Z79.899 Other long term (current) drug therapy
CPT/HCPCS: 36415; 73562; 80053; 85025; 85651; 86140

== ENCOUNTER → 2023-05-13 07:59 | Outpatient (CLI) | payer BC, SELFPAY ==
[2023-05-13 08:59] LABS: Alanine Aminotransferase 33 U/L (12-78); Albumin Level 4.1 g/dl (3.5-5.0); Albumin/Globulin Ratio 1.4 (1.1-1.8); Alkaline Phosphatase 157 U/L (38-126); Anion Gap 10.2 mEq/L (5-15); Aspartate Amino Transferase 30 U/L (14-36); Bilirubin,Total 0.3 mg/dl (0.2-1.3); Blood Urea Nitrogen 20 mg/dl (7-17); Calcium 9.4 mg/dl (8.4-10.2); Carbon Dioxide 29 mmol/L (22.0-30.0); Chloride 105 mmol/L (98-107); Chol/HDL Ratio 5.2 (1-3.5); Cholesterol 202 mg/dl (140-200); Estimated Glomerular Filt Rate 65 ml/min (>60); GFR (African American) 78 ML/MIN (>60); Globulin 2.9 g/dL (1.3-3.2); Glucose 135 mg/dl (74-100); HDL Cholesterol 39 mg/dl (40-60); Potassium 4.2 mmoL/L (3.5-5.1); Sodium 140 mmol/L (136-145); Triglycerides 221 mg/dl (30-150); VLDL Cholesterol 44 mg/dL (0-40)
[2023-05-13 09:01] LABS: Hemoglobin A1C 5.9 % (4.0-6.0)
[2023-05-13 09:10] LABS: Direct LDL Cholesterol 118.21 mg/dL (100-129)
[2023-05-13 09:14] LABS: Iron 89 ug/dL (37-170)
[2023-05-13 09:19] LABS: 25-OH Vitamin D, Total 18.5 ng/mL (30-100)
[2023-05-13 09:23] LABS: Total Iron Binding Capacity 302 ug/dL (265-497)
[2023-05-13 09:31] LABS: Thyroid Stimulating Hormone 1.07 uIU/mL (0.465-4.68)
[2023-05-13 09:50] LABS: Vitamin B12 598 pg/mL (239-931)
== END ==
PROVIDERS: PCP Physician Assistant; Visit Provider Physician Assistant
DX: R73.01 Impaired fasting glucose (principal); I10 Essential (primary) hypertension; E55.9 Vitamin D deficiency, unspecified; E78.2 Mixed hyperlipidemia; E53.8 Deficiency of other specified B group vitamins; D50.9 Iron deficiency anemia, unspecified
CPT/HCPCS: 36415; 80053; 80061; 82306; 82607; 82728; 83036; 83540; 83550; 84443

== ENCOUNTER → 2023-07-26 15:43 | Outpatient (CLI) | payer BC, SELFPAY ==
--- NOTE | 2023-07-26 15:56 | ECG_ITS ---
APPROVED REPORT Exam: Resting ECG HR:75 bpm ECG Measurements Heart Rate 75 AXES ID 138 P 23 QRSd 92 QRS -31 QT 397 T 18 QTc 426 Conclusion SINUS RHYTHM INDETERMINATE AXIS PATTERN CONSISTENT WITH PULMONARY DISEASE ABNORMAL ECG UNCONFIRMED REPORT Electronically signed by : Miguel Toussaint MD 07/27/2023 07:30:38
--- NOTE | 2023-07-26 16:09 | XR_ITS ---
FINAL REPORT CLINICAL HISTORY: Pre Op FINDINGS: Two views of the chest were obtained. The heart size and pulmonary vascularity are within normal limits. The mediastinum is normal. No acute pulmonary abnormality is identified. There is no pneumothorax. Moderate degenerative changes are seen in the thoracic spine. IMPRESSION: No active cardiopulmonary disease. Reviewed, Interpreted and Dictated by Quincy Abdi III, MD Transcribed by Kat Linton Authenticated and [facility]
[2023-07-26 16:39] LABS: Basophils % 0.1 % (0.1-2.0); Eosinophils % 0.1 % (0.1-12.0); Hematocrit 39.3 % (37.0-47.0); Hemoglobin 12.3 g/dL (12.2-16.2); Lymphocytes # 0.7 K/mm3 (0.7-4.5); Lymphocytes % 23.1 % (10-50); Mean Corpuscular HGB Conc 31.2 g/dL (31.8-35.4); Mean Corpuscular Hemoglobin 28.8 pg (27.0-31.2); Mean Corpuscular Volume 92.4 fl (81-99); Mean Platelet Volume 9.3 fl (7.4-10.4); Monocytes # 0.2 K/mm3 (0.1-1.0); Monocytes % 7.8 % (1.7-9.3); Neutrophils % 68.9 % (37.0-80.0); Platelet Count 154 K/mm3 (142-424); Red Blood Count 4.26 M/mm3 (4.20-5.40); Red Cell Distribution Width 13.1 % (11.5-17.5); White Blood Count 2.9 K/mm3 (4.8-10.8)
[2023-07-26 20:18] LABS: Chloride 107 mmol/L (98-107); Potassium 4.3 mmoL/L (3.5-5.1); Sodium 142 mmol/L (136-145)
[2023-07-26 20:21] LABS: Alanine Aminotransferase 31 U/L (12-78); Albumin Level 4.1 g/dl (3.5-5.0); Albumin/Globulin Ratio 1.2 (1.1-1.8); Alkaline Phosphatase 149 U/L (38-126); Anion Gap 13.3 mEq/L (5-15); Aspartate Amino Transferase 34 U/L (14-36); Bilirubin,Total 0.2 mg/dl (0.2-1.3); Blood Urea Nitrogen 21 mg/dl (7-17); Carbon Dioxide 26 mmol/L (22.0-30.0); Estimated Glomerular Filt Rate 51 ml/min (>60); GFR (African American) 62 ML/MIN (>60); Globulin 3.3 g/dL (1.3-3.2); Total Protein,Serum 7.4 g/dl (6.3-8.2)
[2023-07-26 20:22] LABS: Calcium 9.2 mg/dl (8.4-10.2); Glucose 111 mg/dl (74-100)
== END ==
PROVIDERS: PCP Physician Assistant; Visit Provider Orthopaedic Surgery
DX: Z01.818 Encounter for other preprocedural examination (principal); M17.11 Unilateral primary osteoarthritis, right knee
CPT/HCPCS: 36415; 71046; 80053; 83036; 85025; 93005

== ENCOUNTER 2023-08-01 10:21 | Observation (INO) | payer BC, SELFPAY ==
--- NOTE | 2023-07-07 12:58 | SW/DCPLANNER ---
Addendum entered by Ronel Mcgarry RN 08/02/23 16:38: Patient is now requesting home PT services. [facility] signed and placed on chart. I have faxed clinical and order to [facility] and [facility], which have both declined. I am waiting to hear back from [facility] at this time. Original Note: I called and spoke w/ this patient regarding plans once medically stable for discharge after TKA on 08/01. Patient stated that she plans to return back home w/ family assistance. Patient also plans to return to [facility] outpatient PT and is scheduled for 08/04. Patient does not have any further questions/needs at this time. I will follow up w/ patient after her surgery.
[2023-07-24 14:59] VITALS: BMI 43.0
[2023-08-01] VITALS (20 sets, daily range): BP systolic 107–162; BP diastolic 57–89; PULSE 67–89; RESP 16–18; TEMP 36.1–37.1; O2SAT 95–100
[2023-08-01 06:46] LABS: POC Glucose,Bedside 140 (70-110)
--- NOTE | 2023-08-01 07:17 | EXP.ANES.CKL ---
[facility] Disclaimer: The information contained in this section may have been updated after the patient was seen, as this information can be updated by other users. Medical History Diabetes mellitus, type 2 Endometriosis Hypertension Pneumonia Rheumatoid arthritis Surgical History (Updated 08/01/23 @ 06:27 by Brandie Murrieta RN) History of cholecystectomy History of hysterectomy History of tonsillectomy History of vocal cord polypectomy Family History Other Family history of acute heart failure Family history of arthritis Family history of cancer Family history of diabetes mellitus type II Social History Smoking Status: Never smoker alcohol intake: never substance use type: other current occupational status: employed Travel in the last 8 weeks: None household members: none housing: house current occupation: [employer] current occupational exposures/hazards: Yes caffeine: Yes [facility] Anesthesia Checklist Patient Identification Patient Identification: Arm Band Structural Data Admitted From: Home Planned Operative Procedure/s: Right Total Knee Arthroplasty Consent for Planned Operative Procedure(s) Verified: Yes Verified Documents: Surgical Consent and History and Physical NPO Status Verified Time NPO: 00:00 Additional verifications Anesthesia Reactions: No Hx Blood Transfusions: No Blood Transfusion Reaction: No Airway Assessment Mallampati Score:: Class II C-Spine Mobility Assessed: Yes TMJ Mobility Assessed: Yes Dentition: Good Dentition Neurological Assessment Level of Consciousness: Awake and Alert Anesthesia Plan Anesthesia Risk discussed: Yes Anesthesia Plan: Verified ASA Class: II Anesthesia Type: MAC w/Spinal (with Adductor Canal Nerve Block. Risks/benefits explained. Pt Verbalized understanding of plan of care)
--- NOTE | 2023-08-01 09:40 | EXP.OP.NOTE ---
Date of procedure: 08/01/23 Pre-op Diagnosis:: Right knee osteoarthritis Post-op Diagnosis:: Right knee osteoarthritis Procedure performed:: Right total knee arthroplasty Surgeon:: Dru Nice MD CAPTAIN AIRLINE PILOT:: Armando Vergara Anesthesia: regional, local and spinal Estimated blood loss (mL): 5 Clinical Note:: Maura is a pleasant 58-year-old female struggling with activity limiting right knee pain secondary to osteoarthritis affecting her quality of life. Right knee x-rays in February revealed moderate to severe degenerative changes in a varus knee with complete loss of medial joint space. 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 No relief with a right knee cortisone injection in March. We discussed all the risks, benefits and alternatives to right total knee replacement and she agreed to proceed. Surgical consent form was signed. Operative findings:: Right knee severe tricompartmental degenerative changes with complete loss of medial joint space and marginal osteophyte formation in a varus knee. Operative note:: The patient was seen in the preoperative holding area. The right knee was marked to confirm the correct operative site. She was seen by anesthesia. She received Ancef 2 g IV prophylactic antibiotics within 1 hour of incision time and a gram of TXA just prior to the incision and as we were closing to help minimize bleeding. She was brought back to the OR. Right knee had been marked to confirm the correct operative site. Once back in the OR spinal anesthesia performed without difficulty and given sedation throughout the case. She was placed in the supine position. Nonsterile tourniquet applied to the right thigh. A bump placed underneath the right hip. Right lower extremity was prepped and draped in the usual sterile fashion. Timeout performed to confirm right total knee replacement for patient Maura Judd. The right lower extremity was exsanguinated with an Esmarch. Tourniquet was inflated to 250 mmHg. With the knee flexed a midline incision was made with a 10 blade scalpel. Full-thickness medial and lateral flaps were elevated. Adequate hemostasis maintained with Bovie electrocautery. A medial parapatellar arthrotomy was made with a fresh 10 blade scalpel. Patellar fat pad was excised as well as anterior femoral fat pad. Medial and lateral Z retractors were placed. A medial release was performed with the Bovie electrocautery for this varus knee. Marginal osteophytes were removed with a rongeur. Whitesides line was marked and then I drilled the distal femur. An intramedullary distal femoral cutting guide set at 5 degree valgus cut was pinned in place to remove approximately centimeter of bone from the distal femur. This cut was made with oscillating saw. Femur was then sized to a size 5 set at 3 degrees of external rotation. The 4-in-1 cutting block was pinned in place. We then made the anterior and posterior cuts and the chamfer cuts with the oscillating saw. Cut bone was removed. We then turned our attention to the tibia. A PCL retractor was placed as were medial and lateral Hohmann retractors. Using an extramedullary tibial cutting guide we removed approximately 5 mm of bone for the low medial side and a centimeter from the high lateral side. Medial and lateral menisci and posterior osteophytes were excised. Tibia was sized to a size 3 tibial tray which was pinned in place. We then punched the tibia with the fins and left the tray in place for trialing. We placed a trial size 5 femur that was pinned in place. Elected to use a 5 narrow femur for the final implant. Prior to placing the tibial tray we had trialed with a 9 mm block and achieved full extension. Therefore we placed a 9 mm polyethylene trial. With these trial components in place we achieved full extension and flexion, stable throughout with excellent alignment. The patellar cut was then made. We made a 9 mm patellar cut leaving at jacoby
--- NOTE | 2023-08-01 10:03 | XR_ITS ---
FINAL REPORT CLINICAL HISTORY: Status post right knee replaced FINDINGS: Two views of the right knee were obtained. The patient is status post right total knee arthroplasty. The hardware appears intact. Soft tissue air is noted. There is no acute bony abnormality. IMPRESSION: Postoperative changes from right total knee arthroplasty with no immediate complication of the hardware. Reviewed, Interpreted and Dictated by Quincy Abdi III, MD Transcribed by Kat Linton Authenticated and . [facility]
[2023-08-01 10:04] LABS: POC Glucose,Bedside 158 (70-110)
--- NOTE | 2023-08-01 11:46 | P.PN_ITS ---
Subjective *Date: 08/01/23 *Time: 11:46 Interval history: Called by Dr. Nice this morning to see patient after total right knee replacement surgery. He would like for her to stay overnight and plans for discharge home tomorrow. Patient states she is still experiencing quite a bit of post surgical pain. Medical Exam Vital signs and Labs for Last 24 Hours: Vital Signs Temp Pulse Resp BP Pulse Ox O2 Del Method 08/01/23 10:32 88 18 122/67 100 Room Air 08/01/23 10:22 67 18 113/68 99 Room Air 08/01/23 10:12 81 17 113/68 99 Room Air 08/01/23 10:02 77 17 116/57 L 98 Room Air 08/01/23 09:52 96.9 F L 87 16 123/74 97 Room Air 08/01/23 06:29 97 F L 89 18 150/83 H 95 Room Air Laboratory Results - last 24 hr 08/01/23 06:27: POC Glucose 140 H 08/01/23 09:56: POC Glucose 158 H Constitutional: Present no acute distress Respiratory: Present normal respiratory effort Cardiac: Present Reg Rate and Rhythm Skin: Present intact; Absent erythema Assessment and Plan *Assessment and plan (1) Status post right knee replacement: Status: Acute Category: Surgical Code(s): Z96.651 - Presence of right artificial knee joint (2) Primary osteoarthritis of right knee: Status: Acute Category: Medical Code(s): M17.11 - Unilateral primary osteoarthritis, right knee (3) Chronic pain of right knee: Status: Acute Category: Medical Code(s): M25.561 - Pain in right knee; G89.29 - Other chronic pain (4) Diabetes mellitus, type 2: Status: Acute Qualifiers: Diabetes mellitus technician terminal and repeater insulin use: without technician terminal and repeater use Diabetes mellitus complication status: without complication Qualified Code(s): E11.9 - Type 2 diabetes mellitus without complications Category: Medical Code(s): E11.9 - Type 2 diabetes mellitus without complications (5) Hypertension: Status: Acute Qualifiers: Hypertension type: primary hypertension Qualified Code(s): I10 - Essential (primary) hypertension Category: Medical Code(s): I10 - Essential (primary) hypertension Plan Orders reviewed, will check blood sugars, treat pain.
--- NOTE | 2023-08-01 11:54 | HMH.PHAINT1 ---
Pharmacy Intervention Comments: MEDICATION RECONCILIATION COMPLETED ON PATIENT USING EXTERNAL FILL HISTORY FROM PHARMACY. -JOHNNA MORFIN, FALLOND
[2023-08-01 12:00] LABS: POC Glucose,Bedside 134 (70-110)
--- NOTE | 2023-08-01 13:33 | HMH.OTEV ---
OT Inpatient Evaluation Rehab OT IP Evaluation Start: 08/01/23 09:58 Freq: ONCE Status: Active Protocol: [facility]01[facility]23 13[facility] (Rec: 08/01/23 13:[address] [facility] [id number]) Rehab OT IP Assessment Subjective History Pt oriented x 3 on arrival. Pt agreeable to engage in therapy evaluation. Pt admitted on 08/01/23 following a Right total knee arthroplasty. Prior to being in the hospital, pt lives at home alone. Pt was independent with all ADLs and IADLs. 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 Pt did not require any type of AE during functional transfers. Subjective I did everything I needed to. Objective Patient Orientation Person,Place,Birthday Upper Extremity Gross ROM WFL Bed Mobility bed mobility-scooting,bed mobility - supine/sit Assist Level Contact Guard/Hand Hold Transfer Training Sit/Stand Transfer Assist Level Contact Guard/Hand Hold Lower Body Dressing Ability Assistance X1 Performing Toilet Hygiene Ability Standby Assistance Overall Commode/Toilet Transfer Ability Assistance x1 Commode/Toilet Transfer Technique Stand Step Pivot Rehab OT IP prob,goals,plan Problems Date of Evaluation: 08/01/23 OT IP Problems Bed Mobility,Transfers,Balance ,Self care,Safety Rehab Potential Rehab Potential Good Equipment Needs Assistive Devices Rolling / Wheeled Walker Plan OT intervention Plan Bed Mobility,Transfers,Balance ,Self care,Safety,Therapeutic Exercise OT Plan Frequency BID Duration LOS Discharge Goals Bed Mobility Ability Standby Assistance Sit to Stand Chair Transfer Ability Supervision/Stand by Chair Transfer Ability Supervision/Stand by Chair Transfer Technique Sit to/from Ambulatory Chair Transfer Assistive Devices Rolling Walker Feeding Ability Assist with Tray Set Up Lower Body Dressing Ability Assistance X1 Upper Body Dressing Ability Standby Assistance Bathing Ability Assistance x1 Performing Toilet Hygiene Ability Standby Assistance Overall Commode/Toilet Transfer Ability Standby Assistance Commode/Toilet Transfer Technique Sit to/from Ambulatory Oral Care Ability Independent d
--- NOTE | 2023-08-01 14:02 | HMH.PTEV ---
Physical Therapy Evaluation Rehab PT IP Evaluation Start: 08/01/23 09:58 Freq: ONCE Status: Active Protocol: Document 08/01/23 13:53 PHORNE (Rec: 08/01/23 14:02 PHORNE [id number]) Subjective/History History History 58 yowf adm to [facility] S/P R TKA. 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 Subjective Subjective Pt reports expected post-op pain in the R knee at this time with some continued numbness due to epidural. New diagnosis of cancer in past 12 No months? Rehab PT IP Eval Objective Appearance Patient Behavior Appropriate Patient Orientation Person,Place,Time Difficulty following instructions none Speech Pattern Clear Ambulation Patient Able to Ambulate Yes Ambulation Observation IP General Gait Pattern Observation Antalgic Gait,Decrease Weight Bear (R),Decrease Stride Lngth (R),Decrease Stride Lngth (L) Ambulation Distance (feet) 5 Ambulation Assistive Device Rolling Walker Ambulation Ability Contact Guard/Hand Hold Balance Ability to Arise Able, uses arms to help Sitting Balance Steady, safe Standing Balance Steady, wide stance Dynamic Sitting Balance Ability Good Dynamic Standing Balance Ability Good Transfers Bed Transfer Ability Contact Guard/Hand Hold Chair Transfer Ability Contact Guard/Hand Hold Sit to Stand Bed Transfer Ability Contact Guard/Hand Hold Sit to Stand Chair Transfer Ability Contact Guard/Hand Hold Rehab PT IP prob,goals,plan Problems Date of Evaluation: 08/01/23 PT IP Problems Bed Mobility,Transfers,Gait Rehab Potential Rehab Potential Good Equipment Needs Assistive Devices Rolling / Wheeled Walker Plan PT Intervention Plan Bed Mobility,Transfers,Gait, Therapeutic Exercise PT Plan Frequency BID Duration LOS Discharge Goals Bed Transfer Ability Supervision/Stand by Sit to Stand Chair Transfer Ability Supervision/Stand by Ambulation Assistive Device Rolling Walker Ambulation Distance (feet) 30 Discharge Plan PT Discharge Plan Pt is appropriate to return home once medically stable for d/c. Eval Complexity Eval Charge Codes 69817 - High Complexity PHYSICIAN CERTIFICATION: I certify the specified therapy services for Perez
--- NOTE | 2023-08-01 14:24 | EXP.ANES.I ---
[facility] Anesthesia Record Part I Anesthesia Record I Intake, IV Amount: 1,200 Hydration: Adequate Estimated blood loss (mL): 25 Urine output (mL): 0 Blood Products used (#): none Blood Pressure: 124/75 SaO2: 97 Pulse Rate: 85 Airway Patency: Patent Respiratory Rate: 18 Temperature: 96.9 F Patient is:: Awake, Drowsy and Stable Stable to PACU at:: 09:57
[2023-08-01 16:16] LABS: POC Glucose,Bedside 150 (70-110)
[2023-08-01 20:10] LABS: POC Glucose,Bedside 125 (70-110)
[2023-08-02] VITALS: BP 125/72; PULSE 94; RESP 18; TEMP 37.4; O2SAT 96
[2023-08-02 04:00] VITALS: BP 128/71; PULSE 87; RESP 18; TEMP 36.8; O2SAT 97; BMI 43.2
--- NOTE | 2023-08-02 04:24 | PC.NURSE ---
Pt is alert and oriented x4, Pt has tolerated transfers well this shift. Pt right lower extremity remains pink with no sign of swelling and +2 pedal pulses, Pt has had a continuos icepack in place and states that it helps with her pain. Pt pain is currently controlled with medications and Pt denies other needs at this time.
--- NOTE | 2023-08-02 04:35 | PC.NURSE ---
Pt refused bathing and stated that she would take a shower when she got home after D/C.
[2023-08-02 05:38] LABS: POC Glucose,Bedside 160 (70-110)
[2023-08-02 06:34] LABS: Basophils % 0.2 % (0.1-2.0); Hematocrit 29.8 % (37.0-47.0); Hemoglobin 10.1 g/dL (12.2-16.2); Lymphocytes # 0.3 K/mm3 (0.7-4.5); Lymphocytes % 12.1 % (10-50); Mean Corpuscular Hemoglobin 31.2 pg (27.0-31.2); Mean Corpuscular Volume 91.6 fl (81-99); Mean Platelet Volume 9.9 fl (7.4-10.4); Monocytes # 0.2 K/mm3 (0.1-1.0); Monocytes % 7.2 % (1.7-9.3); Neutrophils # 1.9 K/mm3 (1.8-7.8); Neutrophils % 80.5 % (37.0-80.0); Platelet Count 89 K/mm3 (142-424); Red Blood Count 3.25 M/mm3 (4.20-5.40); Red Cell Distribution Width 13.1 % (11.5-17.5); White Blood Count 2.3 K/mm3 (4.8-10.8)
[2023-08-02 06:36] LABS: Chloride 106 mmol/L (98-107); Potassium 3.9 mmoL/L (3.5-5.1); Sodium 135 mmol/L (136-145)
[2023-08-02 06:39] LABS: Anion Gap 10.9 mEq/L (5-15); Blood Urea Nitrogen 20 mg/dl (7-17); Calcium 7.9 mg/dl (8.4-10.2); Carbon Dioxide 22 mmol/L (22.0-30.0); Creatinine Clearance Estimated 58 mL/min (50-200); Estimated Glomerular Filt Rate 74 ml/min (>60); GFR (African American) 89 ML/MIN (>60); Glucose 151 mg/dl (74-100)
[2023-08-02 07:36] VITALS: BP 111/65; PULSE 85; RESP 16; TEMP 36.3; O2SAT 96
--- NOTE | 2023-08-02 08:28 | EXP.ANES.II ---
[facility] Anesthesia Record Part II Anesthesia Record Part II Discharge Time: 10:12 Destination: Surgical Day Care (OP Surgery) PACU nurse assessment reviewed?: Yes Patient Condition:: Good Anesthesia Complications:: None Swallowing reflex intact?: Yes Airway Patency: Patent Cyanosis?: No Blood Pressure: 113/68 SaO2: 99 Respiratory Rate: 17 Pulse Rate: 81 Temperature: 96.9 F Mental Status: Alert & Oriented Pain level:: 0 Nausea and/or vomitting:: None Intake, IV Amount: 1,200 Hydration: Adequate
[2023-08-02 08:29] VITALS: BP 113/68; PULSE 81; RESP 17; TEMP 36.1; O2SAT 99
--- NOTE | 2023-08-02 08:29 | EXP.ACUTE.PN ---
Subjective *Date: 08/02/23 *Time: 08:29 Interval history: Patient had better pain control last night, did awaken with more pain in right knee around 4:30 this morning. Ready to go home. Medical Exam Vital signs and Labs for Last 24 Hours: Vital Signs Temp Pulse Pulse Resp BP BP Pulse Ox 08/02/23 07:36 97.4 F L 85 16 111/65 96 08/02/23 06:10 08/02/23 04:00 98.3 F 87 18 128/71 97 08/02/23 04:32 08/02/23 02:50 08/02/23 01:00 08/02/23 00:00 99.4 F 94 H 18 125/72 96 08/01/23 22:56 08/01/23 21:00 08/01/23 20:00 98 08/01/23 20:00 98.3 F 87 18 117/61 98 08/01/23 17:00 98.3 F 68 18 115/65 98 08/01/23 17:22 08/01/23 16:42 08/01/23 15:00 97.6 F 84 16 122/57 L 98 08/01/23 14:00 97.6 F 89 16 113/89 95 08/01/23 14:00 08/01/23 13:30 97.5 F L 85 16 125/63 96 08/01/23 13:00 98.6 F 86 16 126/74 96 08/01/23 12:30 98.6 F 88 16 138/79 97 08/01/23 12:00 98.6 F 89 16 126/74 99 08/01/23 11:45 98.6 F 87 16 107/63 L 100 08/01/23 11:15 98.6 F 86 16 162/82 H 96 08/01/23 11:00 98.7 F 86 16 152/86 H 96 08/01/23 10:45 98.7 F 87 16 153/87 H 97 08/01/23 12:26 98 08/01/23 12:02 08/01/23 11:00 08/01/23 10:32 88 18 122/67 100 08/01/23 10:22 67 18 113/68 99 08/01/23 10:12 81 17 113/68 99 08/01/23 10:02 77 17 116/57 L 98 08/01/23 09:52 96.9 F L 87 16 123/74 97 08/01/23 14:25 96.9 F L 85 18 124/75 O2 Del Method 08/02/23 07:36 Room Air 08/02/23 06:10 Room Air 08/02/23 04:00 Room Air 08/02/23 04:32 Room Air 08/02/23 02:50 Room Air 08/02/23 01:00 Room Air 08/02/23 00:00 Room Air 08/01/23 22:56 Room Air 08/01/23 21:00 Room Air 08/01/23 20:00 Room Air 08/01/23 20:00 Room Air 08/01/23 17:00 Room Air 08/01/23 17:22 Room Air 08/01/23 16:42 Room Air 08/01/23 15:00 Room Air 08/01/23 14:00 Room Air 08/01/23 14:00 Room Air 08/01/23 13:30 Room Air 08/01/23 13:00 Room Air 08/01/23 12:30 Room Air 08/01/23 12:00 Room Air 08/01/23 11:45 Room Air 08/01/23 11:15 Room Air 08/01/23 11:00 Room Air 08/01/23 10:45 Room Air 08/01/23 12:26 Room Air 08/01/23 12:02 Room Air 08/01/23 11:00 Room Air 08/01/23 10:32 Room Air 08/01/23 10:22 Room Air 08/01/23 10:12 Room Air 08/01/23 10:02 Room Air 08/01/23 09:52 Room Air 08/01/23 14:25 Intake and Output 08/01/23 08/02/23 08/02/23 23:59 07:59 15:59 Intake Total 180 / 1965 1607 / 1607 Output Total 0 / 0 0 / 0 Balance 180 / 1965 1607 / 1607 Intake: Intake, Oral Amount 180 / 540 480 / 480 Intake, Total IV Amount 1127 / 1127 0.9 % Sodium Chloride 1000ML 1, 1127 / 1127 000 ml @ 75 mls/hr IV .[id number] [facility] Rx#:[id number] Output: Output, Urine Amount 0 / 0 0 / 0 Other: Number of Unmeasured Voids 1 1 Weight 234 lb 15.992 oz Patient Weight 08/02/23 23:59 Weight 234 lb 15.992 oz Laboratory Results - last 24 hr 08/01/23 09:56: POC Glucose 158 H 08/01/23 11:53: POC Glucose 134 H 08/01/23 16:08: POC Glucose 150 H 08/01/23 19:52: POC Glucose 125 H 08/02/23 05:31: POC Glucose 160 H 08/02/23 06:00: WBC 2.3 L, RBC 3.25 L, Hgb 10.1 L, Hct 29.8 L, MCV 91.6, MCH 31.2, MCHC 34.0, RDW 13.1, Plt Count 89 L, MPV 9.9, Neut % (Auto) 80.5 H, Lymph % (Auto) 12.1, [place] % (Auto) 7.2, Eos % (Auto) 0.0 L, Baso % (Auto) 0.2, Neut # (Auto) 1.9, Lymph # (Auto) 0.3 L, [place] # (Auto) 0.2, Eos # (Auto) 0.0, Baso # (Auto) 0.0, Sodium 135 L, Potassium 3.9, Chloride 106, Carbon Dioxide 22, Anion Gap 10.9, BUN 20 H, Creatinine 0.80, Estimated Creat Clear 58, Estimated GFR 74, Est GFR ( Amer) 89, Glucose 151 H, Calcium 7.9 L I & O for Labs for Last 24 Hours: Intake & Output 07/30/23 07/31/23 08/01/23 08/02/23 23:59 23:59 23:59 23:59 Intake Total 1725 / 1965 1607 / 1607 Output Total 0 /
--- NOTE | 2023-08-02 09:18 | PC.NURSE ---
Soft DSG removed. Telfa and tegaderm placed to R knee.
--- NOTE | 2023-08-03 13:43 | CARE MANAGER ---
Spoke with patient's family as she was with PT home health. They state that she is doing well. She has her medications and equipment she needs. Deny any questions or concerns at this time. GABRIEL Hilton
--- NOTE | 2023-08-07 20:51 | EXP.DC.SUM ---
General Admission date:: 08/01/23 Discharge date: 08/02/23 HPI HPI HPI: Ms. Judd is a 58-year-old female with right knee pain secondary to osteoarthritis who had a right knee replacement by Dr. Nice and was admitted postoperatively. Hospital Course Hospital Course Hospital Course: Patient's blood sugars were monitored and she was started on pain medication. She had better pain control throughout the night of 08/02/2023. She was stable for discharge and Toradol was added for a few days in addition to her medications already sent to her pharmacy for pain control. Exam Data for Last 24 hours Vital signs and Labs for Last 24 Hours: Temp Pulse Resp BP Pulse Ox O2 Del Method 97.4 F L 85 17 111/65 96 Room Air 08/02/23 07:36 08/02/23 07:36 08/02/23 08:29 08/02/23 07:36 08/02/23 07:36 08/02/23 09:00 Narrative: Constitutional: Present no acute distress Respiratory: Present normal respiratory effort Cardiac: Present Reg Rate and Rhythm Skin: Present intact; Absent erythema DS: Diagnosis Discharge Diagnosis (1) Status post right knee replacement: Status: Acute Code(s): Z96.651 - Presence of right artificial knee joint (2) Primary osteoarthritis of right knee: Status: Acute Code(s): M17.11 - Unilateral primary osteoarthritis, right knee (3) Chronic pain of right knee: Status: Acute Code(s): M25.561 - Pain in right knee; G89.29 - Other chronic pain (4) Diabetes mellitus, type 2: Status: Acute Code(s): E11.9 - Type 2 diabetes mellitus without complications Qualifiers: Diabetes mellitus senior care insulin use: without ocean transportation intermediary use Diabetes mellitus complication status: without complication Qualified Code(s): E11.9 - Type 2 diabetes mellitus without complications (5) Hypertension: Status: Acute Code(s): I10 - Essential (primary) hypertension Qualifiers: Hypertension type: primary hypertension Qualified Code(s): I10 - Essential (primary) hypertension Meds Home Medications and Allergies Home Medications Medication Instructions Recorded Confirmed Type metformin 500 mg tablet 500 mg PO DAILY Diabetes 12/12/18 08/01/23 History leflunomide 20 mg tablet 20 mg PO DAILY Rheumatoid arthritis 06/16/19 08/01/23 History olmesartan 40 1 each PO DAILY High Blood Pressure 06/16/19 08/01/23 History mg-hydrochlorothiazide 25 mg tablet apixaban 2.5 mg tablet (Eliquis) 2.5 mg PO BID #30 tabs 08/01/23 08/01/23 Rx diclofenac sodium 75 mg 75 mg PO BID Pain 08/01/23 08/01/23 History tablet,delayed release oxycodone 5 mg tablet 5 mg PO Q4H PRN pain #30 tabs 08/01/23 08/01/23 Rx ketorolac 10 mg tablet 10 mg PO Q6H PRN pain 5 days #15 08/02/23 Rx tabs New Prescriptions to Start Prescriptions: apixaban 2.5 mg tablet ketorolac Pedrito Briones oxycodone 5 mg tablet Allergies Allergy/AdvReac Type Severity Reaction Status Date / Time tramadol Allergy Intermediate Verified 08/01/23 06:27 aspirin Allergy Mild I-HIVES Verified 08/01/23 06:27 Discharge Plan Disposition Patient Disposition: Home Health Service Condition: Good Discharge Order Discharge Orders: Discharge Order (Routine); Ordered 08/02/23 Ordered By: Pedrito Briones Follow up Plan Follow up with: Uyen Stone PA [Primary Care Provider] - 08/09/23 10:30 am Dru Nice MD [Referring] - 08/23/23 9:30 am Prescriptions/Medication Reconciliation: New oxycodone 5 mg tablet 5 mg PO Q4H PRN (Reason: pain) Qty: 30 0RF Eliquis 2.5 mg tablet 2.5 mg PO BID Qty: 30 0RF Rx Instructions: Take BID for 2 weeks for DVT prophylaxis ketorolac 10 mg tablet 10 mg PO Q6H PRN (Reason: pain) 5 Days Qty: 15 0RF Continued metformin 500 MG tablet 500 mg PO DAILY leflunomide 20 MG tablet 20 mg PO DAILY Patient Comments: TAKE 1 TABLET BY MOUTH EVERY D
== END 2023-08-02 11:02 | disposition home health service (06) ==
LOC: 2ND 10:21
PROVIDERS: Orthopaedic Surgery; Admitting Provider Family Medicine; PCP Physician Assistant; Visit Provider Family Medicine
PROC: (CPT 27447; principal; 2023-08-01 07:30)
DX: M17.11 Unilateral primary osteoarthritis, right knee (principal); M25.561 Pain in right knee; E11.9 Type 2 diabetes mellitus without complications; I10 Essential (primary) hypertension; Z79.84 Long term (current) use of oral hypoglycemic drugs; Z79.899 Other long term (current) drug therapy
CPT/HCPCS: 27447; 36415; 73560; 80048; 82962; 85025; 96374; 97110; 97116; 97163; 97166; 97530; C1713; C1776; G0378; J2405; J2704

== ENCOUNTER → 2023-08-23 08:50 | Outpatient (CLI) | payer BC, SELFPAY ==
--- NOTE | 2023-08-23 08:56 | XR_ITS ---
FINAL REPORT CLINICAL HISTORY: right knee tka COMPARISON: 08/01/2023 FINDINGS: Three views of the right knee reveal no evidence of fracture or dislocation. The patient has undergone a right total knee replacement, also seen on the prior films of July. The joint prosthesis remains unchanged in appearance and positioning since the prior plain films. There is no evidence of joint effusion. No localized soft tissue abnormality is identified. IMPRESSION: Right total knee arthroplasty, no acute abnormality identified.. Reviewed, Interpreted and Dictated by Quincy Abdi III, MD Transcribed by Lydia Child Authenticated and . [facility]
== END ==
PROVIDERS: PCP Physician Assistant; Visit Provider Orthopaedic Surgery
DX: Z96.651 Presence of right artificial knee joint (principal)
CPT/HCPCS: 73562

== ENCOUNTER 2023-09-27 14:00 | Outpatient (RCR) | payer BC, SELFPAY ==
--- NOTE | 2023-08-28 10:55 | HMH.PTOPEV ---
PT Outpatient Evaluation Rehab PT Outpatient Evaluation Start: 08/28/23 07:54 Freq: Status: Active Protocol: Document 08/28/23 07:56 ISAAC (Rec: 08/28/23 10:54 ISAAC [id number]) E-signed By Anne Marie Marquez, PT Outpatient Therapy Subjective History Subjective History Pt is a 58 y/o female who reports to PT s/p R TKA performed on 08/01/23. Pt denies complications following the surgery. Pt reports she has been participating in HHPT for ~3 weeks. Pt reports she progressed from using a cane to no AD last week, denies issues or falls. Pt reports she has 1 step into her home she is traversing without issues. Pt reports she is independent with all ADLs and iADLs. Pt reports pain is well controlled with Tylenol and ice as needed. Pt reports she had an xray of her right knee on 08/23/23 with good report. Pt reports she returns to her surgeon on 10/25/22 for a follow -up. Pt reports she is currently off work but expected to return on 09/18/23 with restrictions. 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 Chief Complaint Pain Symptom Type Ache,Dull Symptoms Relieved By Rest/Positioning,Ice,OTC Meds Symptoms Aggravated By Standing,Physical Activity, Walking Prior Functional Limitations None Current Functional Limitations Standing,Squatting,Walking, Stairs,Balance Symptom Description Intermittent Level of pain today (0-10) 0 Pain scale - at its best (0-10) 0 Pain scale - at its worst (0-10) 1 Hip/Knee Eval Gait Observation General Gait Pattern Observation Antalgic Gait,Decrease Weight Bear (R) Assistive Device Assistive Devices None / NA Palpation Tenderness right Knee Palpation Overall Comment mild general tenderness of R knee complex MMT Hip Flexion Strength Grade 4 Good Hip Abduction Strength Grade 4 Good Hip Adduction Strength Grade 4 Good Hip Extension Strength Grade 4- Good- Knee Extension Strength Grade 4 Good Knee Flexion Strength Grade 4 Good ROM Knee Extension Active Range of Motion ( 0 degrees) Knee Flexion Active Range of Motion ( 112 degrees) Knee Flexion Passive Range of Motion ( 118 degrees) Sensation Comment equal and intact to light touch sensation bilaterally Effusion joint effusion knee exam standard right Mid - Patellar Circumerential Measure ( 42 cm) 5cm Proximal Circumference Measure (cm) 52 5cm Distal Circumference Measure (cm) 40 Lower Extremity Functional Index Activities Today, do you or would you have any difficulty at all with: a.Any of your usual work, housework or Extreme difficulty or unable school activities to perform activity b. Your usual hobbies, recreational or No difficulty sporting activities c. Getting into or out of the bath No difficulty d. Walking between rooms No difficulty e. Putting on your shoes or socks No difficulty f. Squatting Extreme difficulty or unable to perform activity g. Lifting an object, like a bag of No difficulty groceries from the floor h. Performing light activities around No difficulty your home i. Performing heavy activities around A little bit of difficulty your home j. Getting into or out of a car No difficulty k. Walking 2 blocks Quite a bit of difficulty l. Walking a mile Quite a bit of difficulty m. Going up or down 10 stairs (about 1 Quite a bit of difficulty flight of stairs) n. Standing for 1 hour Moderate difficulty o. Sitting for 1 hour No difficulty p. Running on even ground Extreme difficulty or unable to perform activity q. Running on uneven ground Extreme difficulty or unable to perform activity r. Making sharp turns while running fast Extreme difficulty or unable to perform activity s. Hopping Extreme difficulty or unable to perform activity t. Rolling over in bed No difficulty LEFI Score Lower Extremity Functional Index Score 44 Outpatient Therapy Assessment Impairments Problems/Impairmments Impaired Range of Motion, Impaired Strength,Impaired Gait Pattern,Impaired Walking, Impaired Standing,Impaired Stair Climbing,Impaired Incline Stepping,Impaired Stepping on Uneven Surface, Impaired Squatting,Impaired Work Activities,Impaired Balance,Increased Edema, Subjective C/O Pain,Impaired Self Care/Self Management Prognosis Rehab Potential Good Clinical Impression Consistent with Diagnosis Yes Short Term Goals Number of Weeks 3 Increase Range of Motion Yes: R knee flexion AROM to 115 Improve Gait Pattern without Assistive Yes: proper gait mechanics to Device decrease fall risk Improve LEFI Score Yes: Improve LEFS score to 54/ 80 to improve overall QOL Patient to be Ind w/ HEP Yes Mcc Goals Number of Weeks 6 Increase Range of Motion Yes: R knee AROM 0-120 Increase Strength Yes: RLE MMT 5/5 grossly to assist with function Increase Ability to Walk Yes: 20' with pain 1/10 or less Improve Ability to Climb Stairs Yes: 1 flight with 1 HR reciprocally to assist with community navigation Improve Ability to Squat Yes: proper mechanics to assist with ADLs Improve LEFI Score Yes: Improve score to 65/80 to improve overall QOL Decrease Edema Yes Patient to be Ind w/ Advanced HEP Yes Outpatient Therapy Plan of Care Treatment Plan May Include Therapeutic Exercise Including Home Yes Exercise Program Manual Therapy Techniques Yes Neuromuscular Re-education Yes Therapeutic Activities to Return to Yes Previous Functional/Work Level Gait Training Yes ADL/Self Care Education Yes Dry Needling Yes Thermal Modalities Yes Electrical Stimulation Yes Ultrasound/Phonophoresis Yes Iontophoresis Yes Orthotics/Bracing/Splinting Yes Vasopneumatic Compression Pump Yes Massage Yes Manual Lymphatic Drainage Yes Wound Care Yes Eval/Re-Eval Yes Frequency Times per week 2 Duration Number of Weeks 4-6 Addendums This patient is a candidate for social No or vocational rehab? Patient/Guardian verbally acknowledges Yes understanding of treatment program and consents to further treatment? Patient/Guardian verbally acknowledges Yes understanding of diagnosis, prognosis and goals for treatment? Eval Complexity PT Charges 46768 - Low Complexity Shoulder/Elbow Eval Shoulder Objective Measurements Elbow Objective Measurements PHYSICIAN CERTIFICATION: I certify the specified therapy services for Maura Judd are required, authorized, and reviewed every 30 days.
--- NOTE | 2023-09-27 15:03 | HMH.RHREAS ---
Rehab Reassessment Rehab OP Re-assessment Start: 08/28/23 07:54 Freq: Status: Active Protocol: Document 09/27/23 14:43 [id number] (Rec: 09/27/23 15:02 ISAAC [id number]) E-signed By Anne Marie Marquez PT Rehab Re-assessment Subjective Subjective Pt reports she feels 100% improved since starting PT. Pt denies true pain and reports she is icing the knee at night time to assist with soreness. 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 Pt reports she was able to climb up 5 steps Monday in the community with a step to pattern although she states this is the way she has always traversed stairs. Pt reports she returns to her surgeon on 10/25/22 for a follow-up visit. Objective Objective Notes Gait: non antalgic without AD R knee AROM: 0-123 RLE MMT: 4+/5 grossly RLE girth: prox incision 52, mid patellar 42, distal incision 39 cm Assessment Progress Assessment Progressing as Expected Assessment Notes Pt has attended 8 PT sessions consisting of aerobic exercise , knee mobility, LE stretching /strengthening, balance/ proprioception training and modalities with good tolerance . Pt demonstrated improved R knee AROM, strength, and gait compared to the initial evaluation. Pt met most PT goals and is appropriate to d/ c to independent HEP. Patient goals met LT/8 Goals Not Met stairs, LEFS limited by work restrictions Revised Goals n/a Plan Plan D/c to independent HEP Time and Billing Re-Eval Time 10 Re-Eval Billing Units 1 PHYSICIAN CERTIFICATION: I certify the specified therapy services for Maura Judd are required, authorized, and reviewed every 30 days.
== END 2023-09-27 15:00 | disposition home or self-care (01) ==
LOC: PT 14:00
PROVIDERS: PCP Physician Assistant; Visit Provider Orthopaedic Surgery
DX: M25.561 Pain in right knee (principal); Z96.651 Presence of right artificial knee joint
CPT/HCPCS: 97010; 97014; 97016; 97110; 97163; 97164; 97530; G0283

== ENCOUNTER 2023-09-30 08:00 | Emergency (ER) | payer BC, SELFPAY ==
[2023-09-30 08:10] VITALS: BP 141/85; PULSE 81; RESP 22; TEMP 36.7; O2SAT 96; BMI 41.3
--- NOTE | 2023-09-30 08:18 | EXP.UTC ---
Discharge Plan Disposition Patient Disposition: Home, Self-Care Condition: Good Prescriptions Prescriptions: New loratadine 10 mg tablet 10 mg PO DAILY Qty: 30 1RF No Action metformin 500 MG tablet 500 mg PO DAILY leflunomide 20 MG tablet 20 mg PO DAILY Patient Comments: TAKE 1 TABLET BY MOUTH EVERY DAY olmesartan-hydrochlorothiazide 1 EACH tablet 1 each PO DAILY diclofenac sodium 75 mg tablet,delayed release (DR/EC) 75 mg PO BID Hold Instructions: Resume on 08/07/23. Patient Comments: TAKE ONE TABLET BY MOUTH TWICE DAILY --TAKE WITH FOOD-- Referrals Follow up/Referrals: Uyen Stone PA [Primary Care Provider] - See instructions Clinical Impressions Clinical Impression: Acute pharyngitis, unspecified Qualifiers: Pharyngitis/tonsillitis etiology: unspecified etiology Qualified Code(s): J02.9 - Acute pharyngitis, unspecified Eustachian tube dysfunction Qualifiers: Laterality: bilateral Qualified Code(s): H69.93 - Unspecified Eustachian tube disorder, bilateral Instructions Patient Instructions: DI for Viral Pharyngitis Discharge ED Provider: Cynthia Hair [facility] General Stated complaint: sore throat, right ear pain Mode of Arrival: Ambulatory Source of Information: Patient Limitations: No Limitations Time Seen by Provider: 09/30/23 08:17 Description of Symptoms (Recalled from Triage Doc. by RN): PATIENT C/O SORE THROAT AND RIGHT EAR PAIN SINCE THIS MORNING HEENT Symptoms (Recalled from RN notes): Yes Resp Symptoms (Recalled from RN notes): No Skin Symptoms (Recalled from RN notes): No MS Symptoms (Recalled from RN notes): No Functional Status (Recalled from RN notes): WNL Related Data Home Medications Medication Instructions Recorded Confirmed metformin 500 mg tablet 500 mg PO DAILY Diabetes 12/12/18 09/30/23 leflunomide 20 mg tablet 20 mg PO DAILY Rheumatoid arthritis 06/16/19 09/30/23 olmesartan 40 1 each PO DAILY High Blood Pressure 06/16/19 09/30/23 mg-hydrochlorothiazide 25 mg tablet diclofenac sodium 75 mg 75 mg PO BID Pain 08/01/23 09/30/23 tablet,delayed release Previous Rx's Medication Instructions Recorded loratadine 10 mg tablet 10 mg PO DAILY #30 tabs 09/30/23 Allergies Allergy/AdvReac Type Severity Reaction Status Date / Time tramadol Allergy Intermediate Verified 08/23/23 09:30 aspirin Allergy Mild I-HIVES Verified 08/23/23 09:30 Worker's Comp Is this a Worker's Comp case?: No [facility] Disclaimer: The information contained in this section may have been updated after the patient was seen, as this information can be updated by other users. Medical History Diabetes mellitus, type 2 Endometriosis Hypertension Pneumonia Primary osteoarthritis of right knee Rheumatoid arthritis Surgical History History of cholecystectomy History of hysterectomy History of tonsillectomy History of vocal cord polypectomy Family History Other Family history of acute heart failure Family history of arthritis Family history of cancer Family history of diabetes mellitus type II Social History Smoking Status: Never smoker alcohol intake: never substance use type: other current occupational status: employed Travel in the last 8 weeks: None household members: none housing: house current occupation: [employer] current occupational exposures/hazards: Yes caffeine: Yes ROS Obtained: Yes All systems reviewed & no additional complaints except as documented Constitutional Constitutional: Reports system reviewed and no additional complaints, except as documented Eyes Eyes: Reports system reviewed and no additional complaints, except as documented ENT Ears, Nose, Mouth, and Throat: Report
[2023-09-30 08:27] LABS: UTC Strep Screen (Rapid) Negative (Negative)
[2023-09-30 08:28] VITALS: BP 141/85; PULSE 81; RESP 22; TEMP 36.7; O2SAT 96
== END 2023-09-30 08:30 | disposition home or self-care (01) ==
PROVIDERS: Emergency Provider Nurse Practitioner Family; PCP Physician Assistant
DX: J02.9 Acute pharyngitis, unspecified (principal); H69.93 Unspecified Eustachian tube disorder, bilateral; E11.9 Type 2 diabetes mellitus without complications; I10 Essential (primary) hypertension; M06.9 Rheumatoid arthritis, unspecified; Z79.84 Long term (current) use of oral hypoglycemic drugs
CPT/HCPCS: 87880; 99204; 99212; G0463

== ENCOUNTER 2023-10-25 08:46 | Outpatient (CLI) | payer BC, SELFPAY ==
--- NOTE | 2023-10-25 09:02 | XR_ITS ---
FINAL REPORT CLINICAL HISTORY: right tka COMPARISON: 08/23/2023 FINDINGS: Right knee Three views were obtained. There is no acute fracture or dislocation. There are postoperative changes from knee arthroplasty. Small joint effusion is identified. IMPRESSION: Small joint effusion. Reviewed, Interpreted and Dictated by Quincy Abdi III, MD Transcribed by Rosalina Anaya Authenticated and [facility]
== END 2023-10-25 23:59 ==
LOC: RAD 08:47
PROVIDERS: PCP Physician Assistant; Visit Provider Orthopaedic Surgery
DX: T84.032A Mechanical loosening of internal right knee prosthetic joint, initial encounter (principal)
CPT/HCPCS: 73562

== ENCOUNTER 2023-12-16 08:07 | Outpatient (CLI) | payer BC, SELFPAY ==
[2023-12-16 10:14] LABS: Hemoglobin A1C 6.9 % (4.0-6.0)
[2023-12-16 10:25] LABS: Alanine Aminotransferase 54 U/L (12-78); Albumin Level 3.6 g/dl (3.5-5.0); Albumin/Globulin Ratio 1.4 (1.1-1.8); Alkaline Phosphatase 150 U/L (38-126); Anion Gap 6.3 mEq/L (5-15); Aspartate Amino Transferase 34 U/L (14-36); Bilirubin,Total 0.6 mg/dl (0.2-1.3); Blood Urea Nitrogen 26 mg/dl (7-17); Calcium 8.7 mg/dl (8.4-10.2); Carbon Dioxide 29 mmol/L (22.0-30.0); Chloride 106 mmol/L (98-107); Chol/HDL Ratio 5.5 (1-3.5); Cholesterol 202 mg/dl (140-200); Estimated Glomerular Filt Rate 64 ml/min (>60); GFR (African American) 78 ML/MIN (>60); Globulin 2.5 g/dL (1.3-3.2); Glucose 260 mg/dl (74-100); HDL Cholesterol 37 mg/dl (40-60); Potassium 4.3 mmoL/L (3.5-5.1); Sodium 137 mmol/L (136-145); Total Protein,Serum 6.1 g/dl (6.3-8.2); Triglycerides 191 mg/dl (30-150); VLDL Cholesterol 38 mg/dL (0-40)
[2023-12-16 10:36] LABS: Direct LDL Cholesterol 123.66 mg/dL (100-129)
[2023-12-16 10:42] LABS: 25-OH Vitamin D, Total 22.5 ng/mL (30-100)
[2023-12-16 10:50] LABS: Iron 83 ug/dL (37-170)
[2023-12-16 11:15] LABS: Vitamin B12 458 pg/mL (239-931)
[2023-12-16 11:26] LABS: Ferritin 160 ng/ml (11.1-264)
== END 2023-12-16 23:59 ==
LOC: LAB 08:08
PROVIDERS: PCP Physician Assistant; Visit Provider Physician Assistant
DX: R73.01 Impaired fasting glucose (principal); I10 Essential (primary) hypertension; D50.9 Iron deficiency anemia, unspecified; E78.2 Mixed hyperlipidemia; E53.8 Deficiency of other specified B group vitamins; E55.9 Vitamin D deficiency, unspecified
CPT/HCPCS: 36415; 80053; 80061; 82306; 82607; 82728; 83036; 83540

== ENCOUNTER 2024-02-10 08:22 | Outpatient (CLI) | payer BC, SELFPAY ==
--- NOTE | 2024-02-10 | XR_ITS ---
PROCEDURE INFORMATION: Exam: XR Right Knee Exam date and time: 02/10/2024 8:46 AM Age: 58 years old Clinical indication: Pain; Knee; Bilateral; Additional info: Rheumatoid arthritis , multiple sites TECHNIQUE: Imaging protocol: Radiologic exam of the right knee. Views: 3 views. Total images: 3 COMPARISON: CR XR KNEE RT 3V 10/25/2023 9:03 AM FINDINGS: Bones/joints: Status post total knee replacement without evidence of complications. No evidence of acute fracture or dislocation. Soft tissues: Soft tissues are within normal limits. IMPRESSION: 1. Status post total knee replacement without evidence of complications. 2. No evidence of acute fracture or dislocation.
--- NOTE | 2024-02-10 | XR_ITS ---
PROCEDURE INFORMATION: Exam: XR Left Knee Exam date and time: 02/10/2024 8:46 AM Age: 58 years old Clinical indication: Pain; Knee; Bilateral; Additional info: Rheumatoid arthritis involving multiple sites TECHNIQUE: Imaging protocol: Radiologic exam of the left knee. Views: 3 views. COMPARISON: CR XR FOOT LT MIN 3V 02/10/2024 8:46 AM FINDINGS: Bones/joints: Tricompartmental joint space narrowing and osteophyte formation consistent with degenerative changes. There is no evidence of acute fracture.There is no evidence of malalignment or dislocation. Soft tissues: Normal. IMPRESSION: 1. Tricompartmental joint space narrowing and osteophyte formation consistent with degenerative changes. 2. There is no evidence of acute fracture.There is no evidence of malalignment or dislocation.
--- NOTE | 2024-02-10 | XR_ITS ---
PROCEDURE INFORMATION: Exam: XR Right Foot Exam date and time: 02/10/2024 8:46 AM Age: 58 years old Clinical indication: Pain; Foot; Bilateral; Additional info: Rheumatoid arthritis , multiple sites TECHNIQUE: Imaging protocol: Radiologic exam of the right foot. Views: 3 or more views. COMPARISON: CR [id number] XR ankle RT 2V 11/21/2018 4:38 PM FINDINGS: Bones/joints: Degenerative changes in the 1st metatarsophalangeal joint and IP joint and tarsal bones. There is no evidence of acute fracture.There is no evidence of malalignment or dislocation. Soft tissues: Normal. IMPRESSION: There is no evidence of acute fracture.There is no evidence of malalignment or dislocation.
--- NOTE | 2024-02-10 | XR_ITS ---
PROCEDURE INFORMATION: Exam: XR Right Hand Exam date and time: 02/10/2024 8:46 AM Age: 58 years old Clinical indication: Pain; Hand; Bilateral; Additional info: Rheumatoid arthritis , multiple sites TECHNIQUE: Imaging protocol: Radiologic exam of the right hand. Views: 1 or 2 views. COMPARISON: CR XR HAND RT MIN 3V 06/16/2019 9:52 AM FINDINGS: Bones/joints: Joint space narrowing in the DIP joints and PIP joints of the fingers. Degenerative changes in the radiocarpal joint. Old avulsion fracture adjacent to the ulnar styloid. Normal mineralization. No subluxation. No erosions.There is no evidence of acute fracture.There is no evidence of malalignment or dislocation. Soft tissues: Normal. IMPRESSION: 1. Joint space narrowing in the DIP joints and PIP joints of the fingers. 2. Normal mineralization. No subluxation. No erosions.There is no evidence of acute fracture.There is no evidence of malalignment or dislocation.
--- NOTE | 2024-02-10 | XR_ITS ---
PROCEDURE INFORMATION: Exam: XR Left Hand Exam date and time: 02/10/2024 8:46 AM Age: 58 years old Clinical indication: Pain; Hand; Bilateral; Additional info: Rheumatoid arthritis , multiple sites TECHNIQUE: Imaging protocol: Radiologic exam of the left hand. Views: 1 or 2 views. COMPARISON: CR [id number] XR hand LT min 3V 11/21/2018 4:38 PM FINDINGS: Bones/joints: Joint space narrowing in the DIP joints and PIP joints of the fingers consistent with degenerative changes. Chronic unhealed avulsion fracture adjacent to the distal ulna. There is no evidence of acute fracture.There is no evidence of malalignment or dislocation. Soft tissues: Normal. IMPRESSION: There is no evidence of acute fracture.There is no evidence of malalignment or dislocation.
--- NOTE | 2024-02-10 | XR_ITS ---
PROCEDURE INFORMATION: Exam: XR Left Foot Exam date and time: 02/10/2024 8:46 AM Age: 58 years old Clinical indication: Pain; Foot; Bilateral; Additional info: Rheumatoid arthritis , multiple sites TECHNIQUE: Imaging protocol: Radiologic exam of the left foot. Views: 3 or more views. COMPARISON: CR [id number] XR ankle LT 2V 11/21/2018 4:38 PM FINDINGS: Bones/joints: There is no evidence of acute fracture.There is no evidence of malalignment or dislocation. Degenerative changes in the tarsal bones Soft tissues: Normal. IMPRESSION: There is no evidence of acute fracture.There is no evidence of malalignment or dislocation.
[2024-02-10 08:47] LABS: Basophils % 1.8 % (0.1-2.0); Eosinophils % 0.1 % (0.1-12.0); Hematocrit 36.1 % (37.0-47.0); Hemoglobin 11.8 g/dL (12.2-16.2); Lymphocytes # 0.7 K/mm3 (0.7-4.5); Mean Corpuscular HGB Conc 32.7 g/dL (31.8-35.4); Mean Corpuscular Hemoglobin 30.8 pg (27.0-31.2); Mean Corpuscular Volume 94.4 fl (81-99); Mean Platelet Volume 10.1 fl (7.4-10.4); Monocytes # 0.2 K/mm3 (0.1-1.0); Monocytes % 6.5 % (1.7-9.3); Neutrophils # 1.4 K/mm3 (1.8-7.8); Neutrophils % 62.7 % (37.0-80.0); Platelet Count 132 K/mm3 (142-424); Red Blood Count 3.82 M/mm3 (4.20-5.40); White Blood Count 2.3 K/mm3 (4.8-10.8)
[2024-02-10 09:33] LABS: Erythrocyte Sedimentation Rate 137 mm/hr (0-30)
[2024-02-10 09:48] LABS: Alanine Aminotransferase 32 U/L (12-78); Albumin Level 4.3 g/dl (3.5-5.0); Albumin/Globulin Ratio 1.6 (1.1-1.8); Alkaline Phosphatase 127 U/L (38-126); Anion Gap 11.1 mEq/L (5-15); Aspartate Amino Transferase 35 U/L (14-36); Bilirubin,Total 0.3 mg/dl (0.2-1.3); Blood Urea Nitrogen 27 mg/dl (7-17); Calcium 9.5 mg/dl (8.4-10.2); Carbon Dioxide 26 mmol/L (22.0-30.0); Chloride 109 mmol/L (98-107); Creatine Kinase 40 U/L (30-135); Estimated Glomerular Filt Rate 46 ml/min (>60); GFR (African American) 56 ML/MIN (>60); Globulin 2.7 g/dL (1.3-3.2); Glucose 103 mg/dl (74-100); Potassium 4.1 mmoL/L (3.5-5.1); Sodium 142 mmol/L (136-145)
[2024-02-10 09:54] LABS: C-Reactive Protein 5.9 mg/L (0-4)
[2024-02-10 10:05] LABS: 25-OH Vitamin D, Total 18.5 ng/mL (30-100)
[2024-02-11 08:10] LABS: RA Latex Turbid. 15.5 IU/mL (<14.0)
[2024-02-12 13:18] LABS: Anti-Cyclic Citrullinated Pept 6 units (0-19)
[2024-02-13 16:13] LABS: Antinuclear Antibodies, IFA Negative (.)
== END 2024-02-10 23:59 | disposition home or self-care (01) ==
LOC: LAB 08:24
PROVIDERS: PCP Physician Assistant; Visit Provider Physician Assistant Medical
DX: M06.9 Rheumatoid arthritis, unspecified (principal); M79.641 Pain in right hand; M79.642 Pain in left hand; M79.671 Pain in right foot; M79.672 Pain in left foot; M25.561 Pain in right knee; M25.562 Pain in left knee; E55.9 Vitamin D deficiency, unspecified; R79.82 Elevated C-reactive protein (CRP)
CPT/HCPCS: 36415; 73120; 73562; 73630; 80053; 82306; 82550; 85025; 85651; 86038; 86140; 86200; 86431

== ENCOUNTER 2024-03-05 15:45 | Outpatient (CLI) | payer BC, SELFPAY ==
--- NOTE | 2024-03-05 15:48 | MM_ITS ---
PROCEDURE INFORMATION: Exam: MG Bilateral Screening 3D Mammography Exam date and time: 03/05/2024 3:45 PM Age: 58 years old Clinical indication: Screening examination TECHNIQUE: Imaging protocol: Bilateral Screening tomosynthesis and 2D mammography including computer-aided detection (CAD) when performed. COMPARISON: 1. MG MM DIG SCREENING MAMM BI W/CAD 09/22/2022 4:15 PM 2. MG MM DIG SCREENING MAMM BI W/CAD 05/04/2021 3:30 PM FINDINGS: MAMMOGRAPHY: Breast composition: There are scattered areas of fibroglandular density. Mass: None. Architectural distortion: None. Calcifications: No suspicious calcifications. Asymmetric density: None. Skin thickening: None. Axillary adenopathy: None. IMPRESSION: No mammographic evidence of malignancy. Annual screening is recommended unless otherwise clinically indicated. ASSESSMENT: BI-RADS Category 1: Negative
== END 2024-03-05 23:59 | disposition home or self-care (01) ==
LOC: RAD 15:45
PROVIDERS: PCP Physician Assistant; Visit Provider Physician Assistant
DX: Z12.31 Encounter for screening mammogram for malignant neoplasm of breast (principal)
CPT/HCPCS: 77063; 77067

== ENCOUNTER 2024-03-15 15:55 | Outpatient (CLI) | payer BC, SELFPAY ==
[2024-03-15 16:27] LABS: Basophils % 0.5 % (0.1-2.0); Eosinophils % 0.2 % (0.1-12.0); Hematocrit 36.3 % (37.0-47.0); Hemoglobin 11.9 g/dL (12.2-16.2); Lymphocytes # 0.9 K/mm3 (0.7-4.5); Lymphocytes % 26.3 % (10-50); Mean Corpuscular HGB Conc 32.6 g/dL (31.8-35.4); Mean Corpuscular Hemoglobin 30.8 pg (27.0-31.2); Mean Corpuscular Volume 94.2 fl (81-99); Mean Platelet Volume 10.4 fl (7.4-10.4); Monocytes # 0.2 K/mm3 (0.1-1.0); Monocytes % 6.4 % (1.7-9.3); Neutrophils # 2.3 K/mm3 (1.8-7.8); Neutrophils % 66.6 % (37.0-80.0); Platelet Count 162 K/mm3 (142-424); Red Blood Count 3.86 M/mm3 (4.20-5.40); Red Cell Distribution Width 13.5 % (11.5-17.5); White Blood Count 3.4 K/mm3 (4.8-10.8)
[2024-03-15 16:38] LABS: Chloride 106 mmol/L (98-107); Potassium 3.9 mmoL/L (3.5-5.1); Sodium 140 mmol/L (136-145)
[2024-03-15 16:40] LABS: Alanine Aminotransferase 33 U/L (12-78); Aspartate Amino Transferase 36 U/L (14-36); Blood Urea Nitrogen 36 mg/dl (7-17); Estimated Glomerular Filt Rate 36 ml/min (>60); GFR (African American) 43 ML/MIN (>60)
[2024-03-15 16:41] LABS: Albumin Level 4.5 g/dl (3.5-5.0); Albumin/Globulin Ratio 1.5 (1.1-1.8); Alkaline Phosphatase 136 U/L (38-126); Anion Gap 14.9 mEq/L (5-15); Bilirubin,Total 0.3 mg/dl (0.2-1.3); Calcium 9.8 mg/dl (8.4-10.2); Carbon Dioxide 23 mmol/L (22.0-30.0); Glucose 91 mg/dl (74-100); Total Protein,Serum 7.5 g/dl (6.3-8.2)
[2024-03-15 16:46] LABS: C-Reactive Protein 5.3 mg/L (0-4)
[2024-03-15 17:11] LABS: Erythrocyte Sedimentation Rate > 140 mm/hr (0-30)
== END 2024-03-15 23:59 | disposition home or self-care (01) ==
LOC: LAB 15:56
PROVIDERS: PCP Physician Assistant; Visit Provider Physician Assistant Medical
DX: M06.9 Rheumatoid arthritis, unspecified (principal)
CPT/HCPCS: 36415; 80053; 85025; 85651; 86140

== ENCOUNTER 2024-05-09 15:50 | Outpatient (CLI) | payer BC, SELFPAY ==
[2024-05-09 16:36] LABS: Basophils % 0.5 % (0.1-2.0); Eosinophils % 0.3 % (0.1-12.0); Hematocrit 35.3 % (37.0-47.0); Hemoglobin 11.8 g/dL (12.2-16.2); Lymphocytes # 0.8 K/mm3 (0.7-4.5); Lymphocytes % 22.5 % (10-50); Mean Corpuscular HGB Conc 33.3 g/dL (31.8-35.4); Mean Platelet Volume 9.3 fl (7.4-10.4); Monocytes # 0.2 K/mm3 (0.1-1.0); Monocytes % 6.1 % (1.7-9.3); Neutrophils # 2.4 K/mm3 (1.8-7.8); Neutrophils % 70.5 % (37.0-80.0); Platelet Count 149 K/mm3 (142-424); Red Cell Distribution Width 13.6 % (11.5-17.5); White Blood Count 3.4 K/mm3 (4.8-10.8)
[2024-05-09 17:55] LABS: Erythrocyte Sedimentation Rate 68 mm/hr (0-30)
[2024-05-09 19:56] LABS: Chloride 107 mmol/L (98-107); Potassium 4.4 mmoL/L (3.5-5.1); Sodium 139 mmol/L (136-145)
[2024-05-09 19:59] LABS: Alanine Aminotransferase 23 U/L (12-78); Albumin Level 4.3 g/dl (3.5-5.0); Albumin/Globulin Ratio 1.5 (1.1-1.8); Alkaline Phosphatase 123 U/L (38-126); Anion Gap 11.4 mEq/L (5-15); Aspartate Amino Transferase 28 U/L (14-36); Bilirubin,Total 0.3 mg/dl (0.2-1.3); Carbon Dioxide 25 mmol/L (22.0-30.0); Globulin 2.9 g/dL (1.3-3.2); Total Protein,Serum 7.2 g/dl (6.3-8.2)
[2024-05-09 20:00] LABS: Calcium 9.4 mg/dl (8.4-10.2); Glucose 93 mg/dl (74-100)
[2024-05-09 20:04] LABS: Blood Urea Nitrogen 42 mg/dl (7-17); Estimated Glomerular Filt Rate 31 ml/min (>60); GFR (African American) 37 ML/MIN (>60)
[2024-05-09 20:05] LABS: C-Reactive Protein 5.5 mg/L (0-4)
== END 2024-05-09 23:59 | disposition home or self-care (01) ==
LOC: LAB 15:51
PROVIDERS: PCP Physician Assistant; Visit Provider Physician Assistant Medical
DX: M06.9 Rheumatoid arthritis, unspecified (principal); Z79.899 Other long term (current) drug therapy
CPT/HCPCS: 36415; 80053; 85025; 85651; 86140

== ENCOUNTER 2024-08-29 16:00 | Outpatient (RCR) | payer BC, SELFPAY ==
--- NOTE | 2024-08-01 10:46 | HMH.PTOPEV ---
PT Outpatient Evaluation Rehab PT Outpatient Evaluation Start: 08/01/24 10:15 Freq: Status: Active Protocol: Document 08/01/24 10:20 SAUL (Rec: 08/01/24 10:45 REINIERJOSÉ LUIS [id number]) E-signed By Chuck Chau, PT Outpatient Therapy Subjective History Subjective History Patient is a 59 year old female presenting to outpatient PT with reports of L post-surgical knee pain and decreased mobility S/P L TKA. Sx date 07/04/24 (4 weeks S/P) . Patient reports L knee pain for aproxx 1 year prior to sx . Patient was previously being treated by HHPT S/P. Other comorbidities include hx of HTN and diabetes. New diagnosis of cancer in past 12 No months? Chief Complaint Pain,Stiff,Swelling Symptom Type Ache Symptoms Relieved By Rest/Positioning,Ice,OTC Meds, Prescription Meds Symptoms Aggravated By Standing,Physical Activity, Walking Prior Functional Limitations Standing,Walking Current Functional Limitations Housework,Standing,Walking Symptom Description Intermittent Level of pain today (0-10) 0 Pain scale - at its best (0-10) 0 Pain scale - at its worst (0-10) 5 Hip/Knee Eval Gait Observation General Gait Pattern Observation Antalgic Gait,Decrease Weight Bear (L) Assistive Device Assistive Devices Straight Cane Palpation Tenderness left Knee Palpation Finding Tenderness Knee Palpation Overall Comment MJL 2/4 MMT Hip Flexion Strength Grade 4- Good- Hip Abduction Strength Grade 4 Good Hip Adduction Strength Grade 4 Good Hip Extension Strength Grade 4- Good- Hip External Rotation Strength Grade 4- Good- Hip Internal Rotation Strength Grade 4- Good- Knee Extension Strength Grade 4- Good- Knee Flexion Strength Grade 4 Good ROM Hip ROM Reason Not Measured Within Functional Limits Knee Extension Active Range of Motion ( -3 degrees) Knee Flexion Active Range of Motion ( 109 degrees) Special Tests Knee Anterior Elen Test Negative Left Knee Valgus Stress Test Negative Left Knee Varus Stress Test Negative Left Lower Extremity Functional Index Activities Today, do you or would you have any difficulty at all with: a.Any of your usual work, housework or A little bit of difficulty school activities b. Your usual hobbies, recreational or Moderate difficulty sporting activities c. Getting into or out of the bath No difficulty d. Walking between rooms No difficulty e. Putting on your shoes or socks No difficulty f. Squatting Moderate difficulty g. Lifting an object, like a bag of No difficulty groceries from the floor h. Performing light activities around No difficulty your home i. Performing heavy activities around A little bit of difficulty your home j. Getting into or out of a car A little bit of difficulty k. Walking 2 blocks Quite a bit of difficulty l. Walking a mile Quite a bit of difficulty m. Going up or down 10 stairs (about 1 Moderate difficulty flight of stairs) n. Standing for 1 hour Extreme difficulty or unable to perform activity o. Sitting for 1 hour Quite a bit of difficulty p. Running on even ground Extreme difficulty or unable to perform activity q. Running on uneven ground Extreme difficulty or unable to perform activity r. Making sharp turns while running fast Extreme difficulty or unable to perform activity s. Hopping Extreme difficulty or unable to perform activity t. Rolling over in bed Moderate difficulty LEFI Score Lower Extremity Functional Index Score 40 Outpatient Therapy Assessment Impairments Problems/Impairmments Palpation Tenderness,Impaired Range of Motion,Impaired Strength,Impaired Gait Pattern ,Impaired Walking,Impaired Standing,Impaired Household Care,Impaired Stair Climbing, Impaired Squatting,Impaired Work Activities,Impaired Balance,Subjective C/O Pain Prognosis Rehab Potential Good Clinical Impression Consistent with Diagnosis Yes Short Term Goals Number of Weeks 2 Halfway Goals Decrease Subjective C/O Pain Yes: 4/10 at worst Patient to be Ind w/ HEP Yes Outpatient Therapy Plan of Care Treatment Plan May Include Therapeutic Exercise Including Home Yes Exercise Program Manual Therapy Techniques Yes Neuromuscular Re-education Yes Therapeutic Activities to Return to Yes Previous Functional/Work Level Gait Training Yes ADL/Self Care Education Yes Dry Needling Yes Thermal Modalities Yes Electrical Stimulation Yes Ultrasound/Phonophoresis Yes Iontophoresis Yes Orthotics/Bracing/Splinting Yes Vasopneumatic Compression Pump Yes Massage Yes Eval/Re-Eval Yes Frequency Times per week 2x/week Duration Number of Weeks 4-6 Addendums This patient is a candidate for social No or vocational rehab? Patient/Guardian verbally acknowledges Yes understanding of treatment program and consents to further treatment? Patient/Guardian verbally acknowledges Yes understanding of diagnosis, prognosis and goals for treatment? Eval Complexity PT Charges 02184 - Moderate Complexity Shoulder/Elbow Eval Shoulder Objective Measurements Elbow Objective Measurements PHYSICIAN CERTIFICATION: I certify the specified therapy services for Maura Judd are required, authorized, and reviewed every 30 days.
== END 2024-08-29 23:59 | disposition home or self-care (01) ==
LOC: PT 16:00
PROVIDERS: Visit Provider Orthopaedic Surgery
DX: M25.562 Pain in left knee (principal); Z96.652 Presence of left artificial knee joint
CPT/HCPCS: 97110; 97163; 97530

== ENCOUNTER 2025-02-24 08:11 | Outpatient (CLI) | payer BC, SELFPAY ==
[2025-02-24 08:46] LABS: Basophils % 0.5 % (0.1-2.0); Hematocrit 37.9 % (37.0-47.0); Hemoglobin 12.8 g/dL (12.2-16.2); Lymphocytes # 0.2 K/mm3 (0.7-4.5); Lymphocytes % 10.8 % (10-50); Mean Corpuscular HGB Conc 33.8 g/dL (31.8-35.4); Mean Corpuscular Hemoglobin 30.5 pg (27.0-31.2); Mean Corpuscular Volume 90.2 fl (81-99); Mean Platelet Volume 10.6 fl (7.4-10.4); Monocytes # 0.1 K/mm3 (0.1-1.0); Monocytes % 6.6 % (1.7-9.3); Neutrophils # 1.7 K/mm3 (1.8-7.8); Neutrophils % 81.6 % (37.0-80.0); Nucleated Red Blood Cells # 0 10^3/uL; Nucleated Red Blood Cells % 0 %; Platelet Count 141 K/mm3 (142-424); Red Cell Distribution Width 12.6 % (11.5-17.5); Red Cell Distribution Width-SD 41.2 fL; White Blood Count 2.1 K/mm3 (4.8-10.8)
[2025-02-24 08:48] LABS: MANUAL DIFFERENTIAL MANUAL DIFFERENTIAL (MANUAL DIFF)
[2025-02-24 09:16] LABS: Albumin Level 4.3 g/dl (3.5-5.0); Chloride 107 mmol/L (98-107); Sodium 139 mmol/L (136-145)
[2025-02-24 09:17] LABS: Potassium 3.9 mmoL/L (3.5-5.1)
[2025-02-24 09:19] LABS: Alanine Aminotransferase 15 U/L (12-78); Albumin/Globulin Ratio 1.7 (1.1-1.8); Alkaline Phosphatase 83 U/L (38-126); Anion Gap 7.9 mEq/L (5-15); Aspartate Amino Transferase 23 U/L (14-36); Bilirubin,Total 0.4 mg/dl (0.2-1.3); Blood Urea Nitrogen 28 mg/dl (7-17); Carbon Dioxide 28 mmol/L (22.0-30.0); Estimated Glomerular Filt Rate 51 ml/min (>60); GFR (African American) 62 ML/MIN (>60); Globulin 2.6 g/dL (1.3-3.2); Total Protein,Serum 6.9 g/dl (6.3-8.2)
[2025-02-24 09:20] LABS: Calcium 9.3 mg/dl (8.4-10.2); Glucose 96 mg/dl (74-100)
[2025-02-24 09:25] LABS: C-Reactive Protein 3.6 mg/L (0-4)
[2025-02-24 10:29] LABS: Erythrocyte Sedimentation Rate 74 mm/hr (0-30)
[2025-02-24 10:38] LABS: Neutrophils % 86 % (42-76)
[2025-02-24 10:39] LABS: Lymphocytes % 9 % (10-50); Monocytes % 5 % (2-9); Platelet Estimate Normal; RBC Morphology Normal; Total Cells Counted 100
[2025-02-25 10:11] LABS: Hepatitis C Antibody Non Reactive (Non Reactive)
[2025-02-25 14:19] LABS: Immunoglobulin A, Qn 234 mg/dL (87-352); Immunoglobulin G, Qn 1038 mg/dL (586-1602)
[2025-02-26 11:15] LABS: Anti-Centromere B Antibodies <0.2 AI (0.0-0.9); Anti-DNA (DS) Ab Qn <1 IU/mL (0-9); Anti-Jo-1 <0.2 AI (0.0-0.9); Antichromatin Antibodies <0.2 AI (0.0-0.9); Antinuclear Antibodies, IFA Positive (.); Antiscleroderma-70 Antibodies <0.2 AI (0.0-0.9); RNP Antibodies <0.2 AI (0.0-0.9); Sjogren's Anti-SS-A <0.2 AI (0.0-0.9); Sjogren's Anti-SS-B <0.2 AI (0.0-0.9)
== END 2025-02-24 23:59 | disposition home or self-care (01) ==
LOC: LAB 08:12
PROVIDERS: PCP Physician Assistant; Visit Provider Internal Medicine Rheumatology
DX: M15.0 Primary generalized (osteo)arthritis (principal); M06.89 Other specified rheumatoid arthritis, multiple sites; Z79.899 Other long term (current) drug therapy
CPT/HCPCS: 36415; 80053; 82784; 83036; 85007; 85025; 85651; 86038; 86140; 86225; 87380

== ENCOUNTER 2025-06-05 15:25 | Outpatient (CLI) | payer BC, SELFPAY ==
--- OUTSIDE RECORDS SUMMARY | 2025-01-28 10:55 | XMS_ITS ---
Author Organization [facility] Address [address] [facility] [address] [place] [id number] Care Team Providers Care Generator Repairer Name Role Phone Tony Hennessy Primary Care Provider [phone] [address] nunna Unavailable [phone] Results Component Value Reference Range Notes CBC Fingerstick (in house) Reviewed date:02/13/2025 12:37:24 PM Interpretation:not performed Performing Lab: Notes/Report: not performed P-Vitamin B12 Reviewed date:01/30/2025 09:13:21 AM Interpretation:Normal Performing Lab: Notes/Report: Test performed by [facility] [address] [place] [address] , [address], [place] [address] Luis Dickson MD, Geophysical Laboratory Supervisor CLIA: [id number] Vitamin B12 549 673-9904 pg/mL P-Comprehensive Metabolic Pa nehemias (CMP) Reviewed date:01/30/2025 09:13:21 AM Interpretation:Na 147, Chl 110, BUN 21, Creat 1.03 Performing Lab: Notes/Report: Test performed by [facility] [address] [place], [place] [address] [address] , [address], [place] [address] Luis Dickson MD, Geophysical Laboratory Supervisor CLIA: [id number] Sodium 147 135-145 mmol/L Potassium 3.9 3.5-5.3 [...] Interpretation:Normal Performing Lab: Notes/Report: Test performed by [facility] [address] [place] [address] , [place] [address] Luis Dickson MD, Geophysical Laboratory Supervisor CLIA: [id number] Ferritin 133.0 13.0-301.0 ng/mL P-Iron Reviewed date:01/30/2025 09:13:21 AM Interpretation:Normal Performing Lab: Notes/Report: Test performed by [facility] [address] [place] [address] , [address], [place] [address] Luis Dickson MD, Geophysical Laboratory Supervisor CLIA: [id number] Iron 46 37-145 ug/dL P-Lipid Panel Reviewed date:01/30/2025 09:13:21 AM Interpretation:Normal Performing Lab: Notes/Report: Test performed by [facility] [address] [place] [address] , [address], [place] [address] Luis Dickson MD, Geophysical Laboratory Supervisor CLIA: [id number] Cholesterol 158 <200 mg/dL Triglycerides 117 <150 [...] Interpretation:26.5 Performing Lab: Notes/Report: Test performed by [facility], [address] , [address], [place] [address] Luis Dickson MD, Geophysical Laboratory Supervisor CLIA: [id number] Vitamin D 25-Hydroxy 26.5 30.0-100.0 ng/mL Interpretation of Vitamin D 25 OH: < 20 ng/mL - Deficiency 20 - 29 ng/mL - Insufficiency 30 - 100 ng/mL - Sufficiency > 100 ng/mL - Super-therapeutic- toxicity may occur above this level. Clinical correlation required. REASON FOR VISIT lab draw Encounters Encounter Location Date Provider Diagnosis [facility] [address] [facility] [address] [place], [place] [id number] 01/28/2025 Uyen Stone Essential hypertensi on I10 [...] hyperlipidemia (ICD-10 - E78.2) Plan Of Treatment Next Appt Details Provider Name:Uyen S Citlalli y, 07/03/2025 04:00:00 PM, [address], [address], [place], [place], [id number], Progress Notes * CYNTHIA JUDDOB: [birth year] (59 yo F)Acc No.[id number]:01/28/2025 Patient: KLEVER YANG Provider: SUSHMA Sandoval :1965 A ge:59 Y S ex:Female Date:01/28/2025 Address:[address] [place] [address], [id number] Pcp:Tony Hennessy Subjective: * Chief Complaints: * [...] Creatinine 62 >59 - mL/min/1.73m2 * Mary Meadwos 01/30/2025 09: 12:25 AM > see phone encounter 2.?Vitamin B12 deficiency?LAB: P-Vitamin B12 (Collection Date & Time - 01/28/2025 02:50 PM)?Normal* Value Reference Range V itamin B12 687 447-5303 - pg/mL * Mary Meadows 01/30/2025 09: [...] Procedure Codes: 3 6416 CAPILLARY BLOOD DRAW, 47289 CBC WITH AUTO DIFF * Images: Billing Information: * Visit Code: * Procedure Codes: 12400 CAPILLARY BLOOD DRAW. 10770 CBC WITH AUTO DIFF. * Electronic signature of SUSHMA Diallo on 06/05/2025 at 03:27 PM EDT Sign off status: Pending * Provider: SUSHMA Sandoval Date: 0 01/28/2025 Generated for Sincere garcia/Fatelma/eTransmitting on: 0 06/05/2025 03:27 PM EDT
--- OUTSIDE RECORDS SUMMARY | 2025-05-14 12:30 | XMS_ITS ---
Author Organization [facility] Address [address] [place] [id number] Care Team Providers Care Senior Education Specialist Name Role Phone Tony Hennessy Primary Care Provider Uyen Stone Unavailable [phone] Allergies Allergen (clinical drug ingredient) Drug/Non Drug [...] day; Duration: 30 day(s) Active Vital Signs Weight 155.8 lbs 05/14/2025 Blood pressure systolic 122 mm Hg 05/14/20 25 Blood pressure diastolic 76 mm Hg 025 Heart Rate 88 /min 05/14/2025 Height 63 in 05/14/2025 BMI 27.6 kg/m2 05/14/2025 Encounters Encounter Location Date Provider Diagnosis [facility] [address] [id number] 05/14/2025 Uyen Stone Acute URI J06.9 and [...] Next Appt Details Follow Up: prn, Reason: Provider Name:Uyen hendrickson, 07/03/2025 04:00:00 PM, [address], [address], [place], [place], [id number], Progress Notes * CYNTHIA JUDDOB: [birth year] (59 yo F)Acc No.[id number]:05/14/2025 Progress Notes Patient: KLEVER YANG Provider: SUSHMA Sandoval :1965 A ge:59 Y S ex:Female Date:05/14/2025 Address:[facility], [place], [id number] Pcp:Tony Hennessy Subjective: * Chief Complaints: * [...] Procedure: H ER- twisted left knee 04-25-2015, [facility]-lost voice 01/06. * Family History: [...] Temp: 98.9, BP: 122/76, HR: 88, Nurse: renate, Ht: 63, BMI:27.6. * Examination: E NT/Respiratory: [...] linda LYON - J06.9 (Primary) 2 . Dash aquino - J40 Plan: * Treatment: Value Reference Range w [...] Codes: 8 5025 CBC WITH AUTO DIFF, 12112 CAPILLARY BLOOD DRAW, 1036F TOBACCO NON-USER * Follow Up: p rn * Images: Billing Information: * Visit Code: 62727 Office Visit, Est Pt., Level 3. * Procedure Codes: 26553 CBC WITH AUTO DIFF. 21587 CAPILLARY BLOOD DRAW. 1036F TOBACCO NON-USER. * Electronic signature of SUSHMA Diallo on 06/05/2025 at 03:27 PM EDT Sign off status: Pending * Provider: SUSHMA Sandoval Date: 0 05/14/2025 Generated for Elenii ng/Faxing/eTransmitting on: 0 06/05/2025 03:27 PM EDT History and Physical Notes * HPI (History [...]
--- OUTSIDE RECORDS SUMMARY | 2025-05-27 07:02 | XMS_ITS ---
Author Organization [facility] Address [address] [facility] [address] [facility] [address] [place] [id number] Care Team Providers Care Computer Systems Designer Name Role Phone Tony Hennessy Primary Care Provider [phone] REASON FOR VISIT due alyssa, col Encounters Encounter Location Date Provider Diagnosis [facility] [address] [facility] [address] [place] [id number] 05/27/2025 Tony Hennessy Encounter for screening for malignant neoplasm of breast Z12.31 and Encounter for screening colonoscopy Z12.11 Assessments Encounter Date Diagnosis (ICD Code) Assessment Notes Treatment Notes Treatment Clinical Notes Section Notes 05/27/2025 Encounter for screening for malignant neoplasm of breast (ICD-10 - Z12.31) 05/27/2025 Encounter for screening colonoscopy (ICD-10 - Z12.11) Plan Of Treatment Pending Test Test Name Order Date colonoscopy 05/27/2025 Mammogram 05/27/2025 Next Appt Details Provider Name:Uyen Lennon y, 07/03/2025 04:00:00 PM, [address], [address], [place], [phone], Progress Notes * CYNTHIA JUDDOB: [birth year] (59 yo F)Acc No.[id number]:05/27/2025 Patient: Tasha KLEVER HARTMAN :1965 A ge:59 Y S ex:Female Address:[facility] [place] [address] Subjective: * Chief Complaints: * D ue alyssa, col * Medical History: * Surgical History: * Hospitalization/Major Diagno stic Procedure: * Medications: Objective: * Vitals: * Physical Examination: Assessment: * Assessment: 1. E ncounter for screening for malignant neoplasm of breast - Z12.31 (Primary) ?2. E ncounter for screening colonoscopy - Z12.11 Plan: * Treatment: 2.?Encounter for screening colonoscopy?Imaging: colonoscopy* Colonscopy - Brian - 2018 ( reccomended repeat in 3 yearsHilda Spencer 05/30/2025 12:20:07 PM EDT >sent to [facility] for referral to [facility] Mauricio 05/30/2025 01:21:28 PM EDT > 06/27/2025 at 07:30am; patient informed * Procedure Codes: * * Date:
--- NOTE | 2025-06-05 15:27 | MM_ITS ---
PROCEDURE INFORMATION: Exam: MG Bilateral Screening 3D Mammography Exam date and time: 06/05/2025 3:38 PM Age: 59 years old Clinical indication: Screening examination TECHNIQUE: Imaging protocol: Bilateral Screening tomosynthesis and 2D mammography including computer-aided detection (CAD) when performed. COMPARISON: 1. MG MM DIG SCREENING MAMM BI W/CAD 03/05/2024 3:45 PM 2. MG MM DIG SCREENING MAMM BI W/CAD 09/22/2022 4:15 PM FINDINGS: MAMMOGRAPHY: Breast composition: There are scattered areas of fibroglandular density. Mass: None. Architectural distortion: None. Calcifications: No suspicious calcifications. Asymmetric density: None. Skin thickening: None. Axillary adenopathy: None. IMPRESSION: No mammographic evidence of malignancy. Annual screening is recommended unless otherwise clinically indicated. ASSESSMENT: BI-RADS Category 1: Negative.
--- OUTSIDE RECORDS SUMMARY | 2025-06-05 15:27 | XMS_ITS | Encounter Summary ---
Author Organization [employer] ([place], [place], [place], [place]) Address [address] [place] [address] Care Team Providers Care Lithographic Camera Operator Name Role Phone Uyen Stone Primary Care Provider [phone] France Mejia MD Unavailable Reason for Visit * Reason Onset Date Comments Medication Refill 04/18/2023 Encounter Details Date Type Department Care Team (Late st Contact Info) Description 04/18/2023 Refill [facility] Rheumatology [address] [facility] [address] [place] [address] France Mejia MD [address] [facility] [address] [place], [place] [id number] Other specified rheumatoid arthritis, multiple sites (HCC); Other osteoarthritis involving multiple joints Social History Tobacco Use Types Packs/Day Years Used Date Smoking Tobacco: Never Smokeless Tobacco: Never Alcohol Use Standard Drinks/Week Comments Not Currently 0 (1 standard drink = 0.6 oz pur e alcohol) Comments Unknown Sex and Gender Information Value Date Recorded Sex Assigned at Not on file Legal Sex Female 6:26 PM CDT Gender Identity Not on file Sexual Orientation Not on file documented as of this encounter Plan of Treatment Not on file documented as of this encounter Visit Diagnoses Diagnosis Other specified rheumatoid arthritis, 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
--- OUTSIDE RECORDS SUMMARY | 2025-06-05 15:27 | XMS_ITS | Referral Summary ---
Author Organization [employer] ([place], [place], [place], [place]) Address [address] [place] [address] Care Team Providers Care Oil Well Services Supervisor Name Role Phone Uyen Stone Primary Care Provider [phone] France Mejia MD Unavailable Allergies Active Allergy Reactions Criticality Noted Date Comments Aspirin 12/15/2022 Medications metFORMIN (GLUCOPHAGE-XR) 500 MG 24 hr tablet Take 1 tablet (500 mg total) by mouth daily. 11/23/19 23 Active olmesartan-hydroch lorothiazide (BENICAR HCT) 40-25 mg per tablet Take 1 tablet by mouth daily. 11/23/19 23 Active tirzepatide (Mounjaro) 2.5 mg/0.5 mL PnIj Inject 2.5 mg subcutaneously every 7 days. Active loratadine (CLARITIN) 10 mg tablet Take 1 tablet (10 mg total) by mouth daily. 04/09/20 24 Active diclofenac (VOLTAREN) 75 MG EC tabletIndications: Primary osteoarthritis involving multiple joints Take 1 tablet (75 mg total) by mouth daily as needed. 30 tablet 2 05/08/20 24 Active leflunomide (ARAVA) 20 MG tabletIndications: Rheumatoid arthritis involving multiple sites, unspecified whether rheumatoid factor present (HCC) Take 1 tablet (20 mg total) by mouth daily. 30 tablet 3 05/08/20 24 Active predniSONE (DELTASONE) 2.5 MG tabletIndications: Rheumatoid arthritis involving multiple sites, unspecified whether rheumatoid factor present (HCC) Take 1 tablet (2.5 mg total) by mouth 2 (two) times daily as needed For flaring.. 30 tablet 05/08/20 24 Active Active Problems No known active problems Social History Tobacco Use Types Packs/Day Years Used Date Smoking Tobacco: Never Smokeless Tobacco: Never Tobacco Cessation:Counseling Given: No Alcohol Use Standard Drinks/Week Comments Never 0 (1 standard drink = 0.6 oz pur e alcohol) Food Insecurity Answer Date Recorded Food run out past 12 months Not on file 10/23 Food did not last past 12 months Not on file 11/10/2023 Employment Answer Date Recorded Help finding and keeping a job Not on file 0 11/10/2023 Family and Community Support Answer Ramon e Recorded Help with Day to Day Activities Not on file 11/10/2023 Feeling Lonely or Isolated Not on file 11/10 Educational Attainment Answer Date John rded Speak language other than Slovak at home Not on file 11/10/2023 Want help with school or training Not on file 11/10/2023 Substance Use Answer Date Recorded Used prescription meds for non-medical reasons N ot on file 11/10/2023 Used illegal drugs past 12 months Not on file 11/10/2023 Comments Unknown Sex and Gender Information Value Date Recorded Sex Assigned at Not on file Legal Sex Female 6:26 PM CDT Gender Identity Not on file Sexual Orientation Not on file Last Filed Vital Signs Vital Sign Reading Time Taken Comments Blood Pressure 107/72 05/08/2024 2:23 PM EDT Pulse 88 05/08/2024 2:23 PM EDT Temperature - - Respiratory Rate 18 02/07/2024 3:08 PM EDT Oxygen Saturation 93% 02/07/2024 3:08 PM EDT Inhaled Oxygen Concentration - - Weight 90.6 kg (199 lb 12.8 oz) 05/08/2024 2:23 PM EDT Height 157.5 cm (5' 2 ) 05/08/2024 2:23 PM EDT Body Mass Index 36.54 05/08/2024 2:23 PM EDT Plan of Treatment Not on file Insurance BLUE CROSS/BLUE SHIELD Care Teams Oil Well Services Supervisor Relationship Specialty Start Date End Date Uyen Stone, PA [address] [place] [address] PCP - General Physician Marketing Services Manager 12/15/22 France Mejia MD 211 [facility] [address] [place] [address] Resident Care Provider Rheumatology 03/10/23
--- OUTSIDE RECORDS SUMMARY | 2025-06-05 15:27 | XMS_ITS | Encounter Summary ---
Author Organization [employer] ([place], [place], [place], [place]) Address [address] [place] [address] Care Team Providers Care Assurance Associate Name Role Phone Uyen Stone Primary Care Provider [phone] France Mejia MD Unavailable Reason for Visit * Reason Comments Medication Refill Encounter Details Date Type Department Care Team (Late st Contact Info) Description 08/16/2022 Refill [facility] Rheumatology [address] [facility] [address] [place] [address] France Mejia MD [address] [facility] [address] [place] [address] Other specified rheumatoid arthritis, multiple sites (HCC); Unilateral primary osteoarthritis, unspecified knee Social History Tobacco Use Types Packs/Day Years Used Date Smoking Tobacco: Never Assessed Comments Unknown Sex and Gender Information Value Date Recorded Sex Assigned at Not on file Legal Sex Female 6:26 PM CDT Gender Identity Not on file Sexual Orientation Not on file documented as of this encounter Plan of Treatment Not on file documented as of this encounter Visit Diagnoses Diagnosis Other specified rheumatoid arthritis, multiple sites (HCC) Unilateral primary osteoarthritis, unspecified knee documented in this encounter Care Teams Assurance Associate Relationship Specialty Start Date End Date Uyen Stone PA [address] [place] [address] PCP - General Physician Car Designer 12/15/22 France Mejia MD [address] [place] [address] Butter Grader Rheumatology 03/10/23 documented as of this encounter
--- OUTSIDE RECORDS SUMMARY | 2025-06-05 15:28 | XMS_ITS | Patient Health Record ---
Author Organization [facility] Address [address] [place] [id number] Care Team Providers Care Central Office Operator Supervisor Name Role Phone Tony Hennessy Primary Care Provider [phone] Uyen Stone Unavailable [phone] Allergies Allergen (clinical drug ingredient) Drug/Non Drug [...] - 38 plat 104 100 - 400 P-Vitamin D 25-Hydroxy Reviewed date:10/09/2024 03:49:50 PM Interpretation: Performing Lab: Notes/Report: Test performed by [facility] [address] [place] [address] , [address], [place] [address] Luis Dickson MD, Snowsport Instructor CLIA: [id number] Vitamin D 25-Hydroxy 13.3 30.0-100.0 ng/mL Interpretation of Vitamin D 25 OH: < 20 ng/mL - Deficiency 20 - 29 ng/mL - Insufficiency 30 - 100 ng/mL - Sufficiency > 100 ng/mL - Super-therapeutic- toxicity may occur above this level. Clinical correlation required. P-Microalbumin/Creatinine, R andom Urine Sample Reviewed date:10/09/2024 03:49:50 PM Interpretation: Performing Lab: Notes/Report: Test performed by [email or web address] [address] [place] [address] , [address], [place] [address] Luis Dickson MD, Snowsport Instructor CLIA: [id number] Albumin/Creatinine Ratio, Urine 12 0-30 ug/m g Microalbumin, Urine, Random 0.9 Creatinine, Urine 72.8 P-Iron Reviewed date:10/09/2024 03:49:50 PM Interpretation: Performing Lab: Notes/Report: Test performed by [email or web address] [address] [place] [address] , [place] [address] Luis Dickson MD, Snowsport Instructor CLIA: [id number] Iron 38 37-145 ug/dL P-Ferritin Reviewed date:10/09/2024 03:49:50 PM Interpretation: Performing Lab: Notes/Report: Test performed by [email or web address] [address] [place] [address] , [address], [place] [address] Luis Dickson MD, Snowsport Instructor CLIA: [id number] Ferritin 154.0 13.0-301.0 ng/mL P-Comprehensive Metabolic Pa nehemias (CMP) Reviewed date:10/09/2024 03:49:50 PM Interpretation: Performing Lab: Notes/Report: Test performed by [email or web address] [address] [place] [address] , [address], [place] [address] Luis Dickson MD, Snowsport Instructor CLIA: [id number] Sodium 144 135-145 mmol/L Potassium 4.2 3.5-5.3 [...] <0.2 <0.2-1.2 mg/dL A/G Ratio 1.5 1.1-2.5 P-Vitamin B12 Reviewed date:10/09/2024 03:49:50 PM Interpretation: Performing Lab: Notes/Report: Test performed by [email or web address] [address] [place] [address] , [address], [place] [address] Luis Dickson MD, Snowsport Instructor CLIA: [id number] Vitamin B12 389 493-1591 pg/mL Glycohemoglobin A1c (in hous e) Reviewed date:10/09/2024 03:49:50 PM Interpretation:5.0% Performing Lab: Notes/Report: 5.0% glycohemoglobin 5.0% 5 - 6.5 % CBC Venipuncture (in house) Reviewed date:10/09/2024 03:49:50 PM Interpretation: Performing Lab: Notes/Report: wbc 1.8 3.5 - 10 lymph 19.6 15 - 50 mid 8.5 2 - 15 gran 71.9 35 - 80 rbc 3.96 3.5 - 5.5 hgb 11.8 11.5 - 16.5 hct 34.3 35 - 55 mcv 29.8 75 - 100 mch 34.4 25 - 35 mchc 135 31 - 38 CBC Venipuncture (in house) Reviewed date:01/23/2025 03:45:08 [...] Interpretation:pt declined Performing Lab: Notes/Report: pt declined CBC Fingerstick (in house) Reviewed date:02/13/2025 12:37:24 PM Interpretation:not performed Performing Lab: Notes/Report: not performed P-Vitamin B12 Reviewed date:01/30/2025 09:13:21 AM Interpretation:Normal Performing Lab: Notes/Report: Test performed by [email or web address] [address] [place] [address] , [address], [place] [address] Luis Dickson MD, Snowsport Instructor CLIA: [id number] Vitamin B12 388 217-3070 pg/mL P-Comprehensive Metabolic Pa nehemias (CMP) Reviewed date:01/30/2025 09:13:21 AM Interpretation:Na 147, Chl 110, BUN 21, Creat 1.03 Performing Lab: Notes/Report: Test performed by [email or web address] [address] [place] [address] , [address], [place] [address] Luis Dickson MD, Snowsport Instructor CLIA: [id number] Sodium 147 135-145 mmol/L Potassium 3.9 3.5-5.3 [...] Interpretation:Normal Performing Lab: Notes/Report: Test performed by [facility] , [place] [address] Luis Dickson MD, Snowsport Instructor CLIA: [id number] Ferritin 133.0 13.0-301.0 ng/mL P-Iron Reviewed date:01/30/2025 09:13:21 AM Interpretation:Normal Performing Lab: Notes/Report: Test performed by [facility] , [place] [address] Luis Dickson MD, Snowsport Instructor CLIA: [id number] Iron 46 37-145 ug/dL P-Lipid Panel Reviewed date:01/30/2025 09:13:21 AM Interpretation:Normal Performing Lab: Notes/Report: Test performed by [facility] , [place] [address] Luis Dickson MD, Snowsport Instructor CLIA: [id number] Cholesterol 158 <200 mg/dL Triglycerides 117 <150 [...] Interpretation:26.5 Performing Lab: Notes/Report: Test performed by [email or web address] , [address], [place] [address] Luis Dickson MD, Snowsport Instructor CLIA: [id number] Vitamin D 25-Hydroxy 26.5 30.0-100.0 ng/mL Interpretation of Vitamin D 25 OH: < 20 ng/mL - Deficiency 20 - 29 ng/mL - Insufficiency 30 - 100 ng/mL - Sufficiency > 100 ng/mL - Super-therapeutic- toxicity may occur above this level. Clinical correlation required. Medications Medication SIG (Take, Route, Frequency, Duration) Notes Start Date End Date Status Mounjaro 7.5 MG/0.5ML INJECT THE CONTENT S OF 1 PEN (7.5 MG / 0.5ML) SUBCUTANEOUSLY ONCE A WEEK; Duration: Active Benicar HCT 20-12.5 MG 1 tablet Orally O nce a day; Duration: 90 days 01/01/2025 Active Leflunomide 20 MG 1 tab(s) orally once a day; Duration: 30 day(s) Active Vitamin D3 25 MCG (1000 UT) 3 tab Orally once a day 03/13/2019 Acti ve metFORMIN HCl ER 500 MG 1 tab(s) orally once daily; Duration: 90 days Active Mounjaro 7.5 MG/0.5ML 7.5 mg Subcutaneou s once a week Active Benzonatate 200 MG 1 capsule as needed [...] MG as directed Orally 05/14/20 25 Active Immunizations Vaccine Route Administration Date Status Comme nts COVID 19 Tia Unknown 01/27/2021 Administered Tetanus Tdap-Adacel (over 7yrs) IM Intramuscular 10/04/2018 Administered Problems Problem Type SNOMED Code ICD Code Onset Dates Problem Status W/U Status Risk Notes Problem Essential hypertension (70336873) Essential (primary) hypertension (I10) Active confirmed Problem Vitamin D deficiency (29171710) Vitamin D deficiency (E55.9) Active confirmed Problem Essential hypertension (32442501) Essential hypertension (I10) Active confirmed Problem Environmental allergy (134093114) Environmental allergies (Z91.09) Active confirmed Problem Mixed hyperlipidemia (043643108) Mixed hyperlipidemia (E78.2) Active confirmed Problem Chronic laryngitis (58339019) Chronic laryngitis (J37.0) Active confirmed Problem Localized, primary osteoarthritis of the hand (570391640) Primary osteoarthritis, right hand (M19.041) Active confirmed Problem Iron deficiency anemia (92974131) Iron deficiency anemia, unspecified iron deficiency anemia type (D50.9) Active confirmed Problem Osteoarthritis of knee (619815766) Primary osteoarthritis of right knee (M17.11) Active confirmed Problem Type II diabetes mellitus without complication (354933997) Type 2 diabetes mellitus without complication, without long-term current use of insulin (E11.9) Active confirmed Problem Family history of coronary artery disease (971138282) Family history of coronary artery disease (Z82.49) Active confirmed Problem Artificial knee joint present (027546451364) Status post right knee replacement (Z96.651) Active confirmed Problem Localized, primary osteoarthritis of the hand (735671855) Primary osteoarthritis of left hand (M19.042) Active confirmed Problem Type II diabetes mellitus without complication (676329811) Type 2 diabetes mellitus without complication, unspecified whether mcc insulin use (E11.9) Active confirmed Problem Artificial knee joint present (591196551689) Status post total knee replacement, right (Z96.651) Active confirmed Vital Signs Heart Rate 88 /min 05/14/2025 Blood pressure diastolic 76 mm Hg 05/14/2025 Height 63 in 05/14/2025 Blood pressure systolic 122 mm Hg 05/14/2025 Weight 155.8 lbs 05/14/2025 BMI 27.6 kg/m2 05/14/2025 Encounters Encounter Location Date Provider Diagnosis [facility] [address] [place] [id number] 10/03/2024 Uyen Crowdy Essential hypertensi on I10 ; Vitamin D deficiency E55.9 ; Vitamin B12 deficiency E53.8 ; Iron deficiency anemia, unspecified iron deficiency anemia type D50.9 ; Mixed hyperlipidemia E78.2 and Type 2 diabetes mellitus without complication, unspecified whether mcc insulin use E11.9 [facility] [address] [place] [id number] 01/01/2025 Uyen Crowdy Essential hypertensi on I10 ; Vitamin D deficiency E55.9 ; Vitamin B12 deficiency E53.8 ; Iron deficiency anemia, unspecified iron deficiency anemia type D50.9 ; Mixed hyperlipidemia E78.2 ; Type 2 diabetes mellitus without complication, unspecified whether mcc insulin use E11.9 and Osteoporosis screening Z13.820 [facility] [address] [place] [id number] 01/28/2025 Uyen Crowdy Essential hypertensi on I10 ; Vitamin B12 deficiency E53.8 ; Vitamin D deficiency E55.9 ; Iron deficiency anemia, unspecified iron deficiency anemia type D50.9 and Mixed hyperlipidemia E78.2 [facility] [address] [facility] [address] [place] [id number] 05/14/2025 Uyen Crowdy Acute URI J06.9 and Bronchitis J40 [facility] [address] [place] [id number] 05/27/2025 R Beto Hennessy Encounter for screen ing for malignant neoplasm of breast Z12.31 and Encounter for screening colonoscopy Z12.11 [facility] [address] [facility] [address] [place] [id number] 07/01/2024 R Beto Hennessy [facility] [address] [facility] [address] [place] [id number] 08/20/2024 R Beto Hennessy [facility] [address] [facility] [address] [place], [place] [id number] 10/09/2024 Uyen Stone [facility] [address] [facility] 36 [facility] [address] [place], [place] [id number] 01/09/2025 Uyen Crowedouard Essential hypertensi on I10 ; Vitamin D deficiency E55.9 ; Iron deficiency anemia, unspecified iron deficiency anemia type D50.9 ; Mixed hyperlipidemia E78.2 and Vitamin B12 deficiency E53.8 [facility] [address] [facility] 36 [facility] [address] [place], [place] [id number] 01/23/2025 Uyen Stone [facility] [address] [facility] 36 [facility] [address] [place], [place] [id number] 01/24/2025 Tony Hennessy [facility] [address] [facility] [address] [place], [place] [id number] 01/30/2025 Uyen Chase Assessments Encounter Date Diagnosis (ICD Code) Assessment Notes Treatment Notes Treatment Clinical Notes Section Notes 10/03/2024 Vitamin D deficiency (ICD-10 - E55.9) 10/03/2024 Essential hypertension (ICD-10 - I10) 01/01/2025 Vitamin D deficiency (ICD-10 - E55.9) 01/01/2025 Essential hypertension (ICD-10 - I10) 01/09/2025 Essential hypertension (ICD-10 - I10) 01/28/2025 Essential hypertension (ICD-10 - I10) 05/14/2025 Bronchitis (ICD-10 - J40) 05/14/2025 Acute URI (ICD-10 - J06.9) 05/27/2025 Encounter for screening colonoscopy (ICD-10 - Z12.11) 05/27/2025 Encounter for screening for malignant neoplasm of breast (ICD-10 - Z12.31) 01/28/2025 Vitamin B12 deficiency (ICD-10 - E53.8) 01/09/2025 Vitamin D deficiency (ICD-10 - E55.9) 01/01/2025 Vitamin B12 deficiency (ICD-10 - E53.8) 10/03/2024 Vitamin B12 deficiency (ICD-10 - E53.8) 10/03/2024 Iron deficiency anemia, unspecified iron deficiency anemia type (ICD-10 - D50.9) 01/01/2025 Iron deficiency anemia, unspecified iron deficiency anemia type (ICD-10 - D50.9) 01/09/2025 Iron deficiency anemia, unspecified iron deficiency anemia type (ICD-10 - D50.9) 01/28/2025 Vitamin D deficiency (ICD-10 - E55.9) 01/09/2025 Mixed hyperlipidemia (ICD-10 - E78.2) 01/28/2025 Iron deficiency anemia, unspecified iron deficiency anemia type (ICD-10 - D50.9) 01/01/2025 Mixed hyperlipidemia (ICD-10 - E78.2) 10/03/2024 Mixed hyperlipidemia (ICD-10 - E78.2) 10/03/2024 Type 2 diabetes mellitus without complication, unspecified whether termite control service representative insulin use (ICD-10 - E11.9) 01/09/2025 Vitamin B12 deficiency (ICD-10 - E53.8) 01/01/2025 Type 2 diabetes mellitus without complication, unspecified whether mcc insulin use (ICD-10 - E11.9) 01/28/2025 Mixed hyperlipidemia (ICD-10 - E78.2) 01/01/2025 Osteoporosis screening (ICD-10 - Z13.820) Plan Of Treatment Pending Test Test Name Order Date colonoscopy 05/27/2025 Mammogram 05/27/2025 H-Lipid Panel 01/09/2025 H-CMP 01/09/2025 H-VITAMIN B12 01/09/2025 H-Ferritin 01/09/2025 H-Iron 01/09/2025 P-Vitamin B12 01/01/2025 P-Comprehensive Metabolic Panel (CMP) P-Ferritin 01/01/2025 P-Iron 01/01/2025 P-Lipid Panel 01/01/2025 P-Vitamin D 25-Hydroxy 01/01/2025 H-Vitamin D 1,25 01/09/2025 Next Appt Details Provider Name:Uyen hendrickson, 07/03/2025 04:00:00 PM, [address] [facility], [address], [place], [place], [id number], Insurance Providers Payer Name Payer Address Payer Phone Subscriber Number Group Number Insured Name Patient Relationship to Insured Coverage Start Date Coverage End Date [facility] [address] [place] [address] [id number] KLEVER JUDD Self - patient is the insured Medications Administered Medication Instructions Date of Administration Dosage Notes Dexamethasone 10/18/2005 1 mL Dexamethasone 11/20/2006 1 mL Vistaril 50 mg 04/04/2007 Medical (General) History Medical History History ICD Code HBP Torn medial meniscus right knee Laryngeal polyps Surgical History Surgery Date(Month/Year) hysterectomy vaginal tonsillectomy Gallbladder removal of laryngeal polyps/ Suraj marcano total rt knee replacement 08/01/23 Hospitalization History Reason Date(Month/Year) UTC-lost voice 01/06 [facility] ER- twisted left knee 04-25-2015
--- OUTSIDE RECORDS SUMMARY | 2025-06-05 15:28 | XMS_ITS | Encounter Summary ---
Author Organization [employer] ([place], [place], [place], [place]) Address [address] [place] [address] Care Team Providers Care Marketing Designer Name Role Phone Uyen Stone Primary Care Provider [phone] France Mejia MD Unavailable Reason for Visit * Reason Comments Medication Refill Encounter Details Date Type Department Care Team (Late st Contact Info) Description 01/16/2024 Refill [facility] Rheumatology [address] [place] [address] France Mejia MD [address] [facility] [address] [place] [address] Other specified rheumatoid arthritis, multiple sites (HCC) Social History Tobacco Use Types Packs/Day Years [...] Date John rded Speak language other than German at home Not on file 11/10/2023 Want [...] Other specified rheumatoid arthritis, multiple sites (HCC) documented in this encounter Care Teams Marketing Designer Relationship Specialty Start Date End Date Uyen Stone PA [address] [place] [address] PCP - General Physician Career Development Counselor 12/15/22 France Mejia MD 211 [facility] [address] [place] [address] Sunglass Clip Attacher Rheumatology 03/10/23 documented as of this encounter
--- OUTSIDE RECORDS SUMMARY | 2025-06-05 15:28 | XMS_ITS | Encounter Summary ---
Author Organization [facility] ([place], [place], [place], [place]) Address [address] [place] [address] Care Team Providers Care Marketing Information Coordinator Name Role Phone Uyen Stone Primary Care Provider [phone] France Mejia MD Unavailable Reason for Visit * Reason Comments Medication Refill Encounter Details Date Type Department Care Team (Late st Contact Info) Description 01/17/2024 Refill [facility] Rheumatology [address] [place] [address] France Mejia MD [address] [facility] [address] [place] [address] Other osteoarthritis involving multiple joints Social History [...] Date John rded Speak language other than Israeli at home Not on file 11/10/2023 Want [...] of this encounter Visit Diagnoses Diagnosis Other osteoarthritis involving multiple joints documented in this encounter Care Teams Marketing Information Coordinator Relationship Specialty Start Date End Date Uyen Stone, PA [address] [place] [address] PCP - General Physician Gas Pump Attendant 12/15/22 France Mejia MD [address] [facility] [address] [place] [address] Cigar Head Pegger Rheumatology 03/10/23 documented as of this encounter
--- OUTSIDE RECORDS SUMMARY | 2025-06-05 15:28 | XMS_ITS | Clinical Summary ---
Author Organization [facility] ([place], [place], [place], [place]) Address [address] [place] [address] Care Team Providers Care Senior Clinical Sas Programmer Name Role Phone Uyen Stone Primary Care Provider [phone] France Mejia MD Unavailable Allergies Active Allergy [...] Active Active Problems No known active problems Family History Medical History Relation Name Comments COPD Brother Mario Alberto Meyers Heart disease Brother Mario Alberto Meyers Hearing loss Daughter Julia Monk Cancer Father Andres Meyers Gout Father Andres Meyers Thyroid disease Father Andres Meyers Arthritis Mother Jaclyn Meyers Asthma Mother Jaclyn Meyers COPD Mother Jaclyn Meyers Cancer Mother Jaclyn Meyers Diabetes Mother Jaclyn Meyers Heart disease Mother Jaclyn Meyers Rheum arthritis Mother Jaclyn Meyers Diabetes Sister Ruba Soto Heart disease Sister Ruba Soto Relation Name Status Comments Brother Mario Alberto Meyers Daughter Julia Monk Father Andres Meyers Mother Jaclyn Meyers Sister Ruba Soto Social History Tobacco Use Types Packs/Day Years [...] Date John rded Speak language other than Indonesian at home Not on file 11/10/2023 Want [...] 05/08/2024 2:23 PM EDT Plan of Treatment Health Maintenance Due Date Last Done Comments CT Colonography 1965 Colonoscopy 1965 Colorectal Cancer Screening 1965 FOBT/FIT 1965 Fit-DNA (Cologuard) 1965 Sigmoidoscopy 1965 Depression Screening (12+) 1977 HIV Screening 1980 Hepatitis C Screening 1983 Pap Smear 1986 Breast Cancer Screening 2005 Lipid Panel 2010 Pneumococcal 50+ years (1 of 1 - PCV) 2015 Shingles Vaccine (Zoster) (1 of 2) 2015 COVID-19 VACCINE (2 - season) 06/23/202404/2021 Tobacco Cessation Counseling and Screening (12+) 05/0805/08/2024 Influenza Vaccine (#1) 2025 DTAP/TDAP/TD VACCINES (2 - Td or Tdap) 10/04/2028 Insurance BLUE CROSS/BLUE SHIELD Care Teams Senior Clinical Sas Programmer Relationship Specialty Start Date End Date Uyen Stone, SUSHMA [address] [place] [address] PCP - General Physician Tin Can Feeder 12/15/22 France Mejia MD 211 [facility] [address] [place] [address] Jewel Bearing Facer Rheumatology 03/10/23
--- OUTSIDE RECORDS SUMMARY | 2025-06-05 15:28 | XMS_ITS | Clinical Summary ---
[facility] Organization [facility] Address [address] [place] [address] Care Team Providers Care Treasury Analyst Name Role Phone Provider, No Known Primary Care Provider Unavail able Allergies Active Allergy Reactions Criticality Noted Date Comments Aspirin Hives Low 10/25/2019 Tramadol GI Intolerance 06/20/2024 Medications leflunomide (ARAVA) 20 MG tablet Take 1 tablet by mouth Daily. Active metFORMIN ER (GLUCOPHAGE-XR) 500 MG 24 hr tablet Take 1 tablet by mouth Daily. 4 Active olmesartan-hydro chlorothiazide (BENICAR HCT) 40-25 MG per tablet Take 1 tablet by mouth Daily. 4 Active Mounjaro 5 MG/0.5ML solution pen-injector pen Inject 0.5 mL under the skin into the appropriate area as directed 1 (One) Time Per Week. 4 Active ropivacaine (NAROPIN) 0.2 % infusion (INFUSYSTEM) 2 mg/hr by Peripheral Nerve route Continuous. 4 Active oxyCODONE (Roxicodone) 5 MG immediate release tabletIndication s:Status post left knee replacement Take 1 tablet by mouth Every 4 (Four) Hours As Needed for Moderate Pain. 30 tablet 4 Active apixaban (ELIQUIS) 2.5 MG tablet tablet Take 1 tablet by mouth Every 12 (Twelve) Hours. 60 tablet 4 Active Active Problems Problem Noted Date Diagnosed Date Primary localized osteoarthritis of left knee Status post left knee replacement 07/04/2024 HTN (hypertension) 07/04/2024 DM2 (diabetes mellitus, type 2) 07/04/2024 Obesity 07/04/2024 Social History Tobacco Use Types Packs/Day Years Used Date Smoking Tobacco: Never Smokeless Tobacco: Never Tobacco Cessation:Counseling Given: Not Answered Alcohol Use Standard Drinks/Week Comments Not Currently 0 (1 standard drink = 0.6 oz pur e alcohol) AUDIT-C Answer Date Recorded Q1: How often do you have a drink containing alcohol? Never 07/04/2024 Q2: How many drinks containi ng alcohol do you have on a typical day when you are drinking? Patient does not drink Q3: How often do you have si x or more drinks on one occasion? Never 07/04/2024 Abuse Screen Answer Date Recorded Feels Unsafe at Home or Work/School no 07/04/2024 Feels Threatened by Someone no 06/23 Does Anyone Try to Keep You From Having Contact with Others or Doing Things Outside Your Home? no 07/04/2024 Physical Signs of Abuse Present no 07/04/2024 Housing Stability Answer Date Recorded Current Living Arrangements home 06/23 Potentially Unsafe Housing Conditions Not on fabienne e 07/04/2024 Family and Community Support Answer Ramon e Recorded Help with Day-to-Day Activities Not on file 05/31/2024 Lonely or Isolated Not on file 05/31/2024 Employment Answer Date Recorded Do you want help finding or keeping work or a jasmin b? Not on file 05/31/2024 Disabilities Answer Date Recorded Difficulty Concentrating, Remembering or Making Decisions no 07/04/2024 Difficulty Managing Errands Independently no 07/04/2024 Education Answer Date Recorded Help with school or training? Not on file Preferred Language Canadian 06/20/2024 Comments No Sex and Gender Information Value Date Recorded Sex Assigned at Not on file Legal Sex Female 3:45 PM EDT Gender Identity Not on file Sexual Orientation Not on file Last Filed Vital Signs Vital Sign Reading Time Taken Comments Blood Pressure 138/81 07/04/2024 2:05 PM EDT Pulse 94 07/04/2024 2:05 PM EDT Temperature 36.5 C (97.7 F) 07/04/2024 2:05 PM EDT Respiratory Rate 18 07/04/2024 2:05 PM EDT Oxygen Saturation 97% 07/04/2024 2:05 PM EDT Inhaled Oxygen Concentration - - Weight 86.7 kg (191 lb 4 oz) 07/04/2024 2:05 PM EDT Height 154.9 cm (5' 0.98 ) 07/04/2024 2:05 PM ED T Body Mass Index 36.16 07/04/2024 2:05 PM EDT Plan of Treatment Health Maintenance Due Date Last Done Comments Annual Gynecologic Pelvic and Breast Exam 1965 DIABETIC EYE EXAM 1975 DIABETIC FOOT EXAM 1975 URINE MICROALBUMIN-CREATININE RATIO (uACR) 1975 Hepatitis B (1 of 3 - 19+ 3-dose series) 1984 Pneumococcal Vaccine 50+ (1 of 2 - PCV) 1984 MAMMOGRAM 2005 COLOGUARD 2010 COLON CANCER SCREENING 5 YEAR SIGMOIDOSCOPY 2010 COLONOSCOPY 2010 [address] CANCER SCREENING 2010 CT COLONOGRAPHY 2010 FECAL OCCULT BLOOD TEST 2010 FIT Testing (1 year) 2010 ZOSTER VACCINE (1 of 2) 2015 ANNUAL PHYSICAL 06/18/2024 HEPATITIS C SCREENING 06/18/2024 COVID-19 Vaccine ( season) 06/23/202404/2021 HEMOGLOBIN A1C 12/20/2024 06/20/2024 INFLUENZA VACCINE 07/23/2025 TDAP/TD VACCINES (2 - Td or Tdap) 10/04/2028 018 Goals Goal Patient Goal Type Associated Problems Recent Progress Patient-Stated? Author Autogenera [email or web address] Goal Care Plan Autogenerated Problem No Eladio, Martina, RegSched Rep Medical Devices Implanted Type Area Interventional Cardiologist Device Identifier Shelf Expiration Date Model / Serial / Lot Dev Contrl Tiss Stratafix Spiral Mncryl Pls Ps 3/0 30cm Ud - [id number] Implanted:Qty : 1 on 07/04/2024 by Dru Nice MD at [facility] Implant Left: Knee ETHICON DIV OF J AND J 06/22/2025 [id number] / / [id number] Dev Wnd/Cls Contrl Tiss Stratafix Symm Pds Pls Ctx 60cm Amanda - [id number] Implanted:Qty : 1 on 07/04/2024 by Dru Nice MD at [facility] Implant Left: Knee ETHICON DIV OF J AND J 02/19/2026 [id number] / / [id number] Cmt Bone Palacos R Hi/Visc 1x40 - [id number] Implanted:Qty : 2 on 07/04/2024 by Dru Nice MD at [facility] Implant Left: Knee [employer] 09/21/2028 [id number] / / [id number] Base Tib/Kn Gen2 Nonpor Ti Sz3 Lt - [id number] Implanted:Qty : 1 on 07/04/2024 by Dru Nice MD at [facility] Implant Left: Knee ROSARIO AND NEPHEW 01/10/2034 [id number] / / [id number] Pat Gen2 Resrf 29mm - [id number] Implanted:Qty : 1 on 07/04/2024 by Dru Nice MD at [facility] Implant Left: Knee ROSARIO AND NEPHEW 05/03/2033 [id number] / / [id number] Comp Fem Legion Oxinium Ps Nrw Sz5n Lt - [id number] Implanted:Qty : 1 on 07/04/2024 by Dru Nice MD at [facility] Implant Left: Knee ROSARIO AND NEPHEW 03/09/2034 [id number] / / [id number] Insrt Art/Kn Legion Ps Hf Xlpe Sz3to4 9mm - [id number] Implanted:Qty : 1 on 07/04/2024 by Dru Nice MD at [facility] Implant Left: Knee ROSARIO AND NEPHEW 12/20/2033 [id number] / / [id number] Totl Kn Estuardo Rosario Nephew - [id number] Implanted:Qty : 1 on 07/04/2024 by Dru Nice MD at [facility] Implant Left: Knee ROSARIO AND NEPHEW CAPKNEETOTAL SN2 / / Procedures Procedure Name Priority Date/Time Associated Diagnosis Comments HEMOGLOBIN A1C Routine 06/20/2024 8:31 AM EDT from Last 3 Months or Most Recently Relevant to Health Maintenance Results * (ABNORMAL) Hemoglobin A1c (06/20/2024 8:31 AM EDT) Hemoglobin A1C 4.70(L) 4.80 - 5.60 % 06/20/2024 9:10 AM EDT [facility] Blood Venipuncture / Unknown 06/20/2024 8:31 AM EDT 06/20/2024 8:48 AM EDT Narrative [facility] - 06/20/2024 9:10 AM EDT Hemoglobin A1C Ranges: Increased Risk for Diabetes 5.7% to 6.4% Diabetes >= 6.5% Diabetic Goal < 7.0% Dru Nice MD LAB BLOOD ORDERABLES F inal Result [facility]
[address] [place] [address], from Last 3 Months or Most Recently Relevant to Health Maintenance Additional Health Concerns Active Problems Noted Date Diagnosed Date Autogenerated Problem 05/01/2025 Insurance [facility] PPO Advance Directives * CPR (Attempt to Resuscitate) (Latest Code Status on File) Date Activated Date Inactivated Comments 07/04/2024 2:00 PM 07/05/2024 2:48 AM Question Answer Comments Code Status (Patient has no pulse and is not breathing): CPR (Attempt to Resuscitate) Medical Interventions (Patie nt has pulse or is breathing): Full Support Level Of Support Discussed With: Patient Care Teams Treasury Analyst Relationship Specialty Start Date End Date Provider, [place] [address] PCP - General 06/20/24
--- OUTSIDE RECORDS SUMMARY | 2025-06-05 15:28 | XMS_ITS | Encounter Summary ---
Author Organization [employer] [facility] ([place], [place], [place], [place]) Address [address] [place] [address] Care Team Providers Care Lead Shop Operator Name Role Phone Uyen Stone Primary Care Provider [phone] France Mejia MD Unavailable Reason for Visit * Reason Onset Date Comments Medication Refill 01/15/2024 Encounter Details Date Type Department Care Team (Late st Contact Info) Description 01/15/2024 Refill [facility] Rheumatology [address] [place] [address] Mary Petersen, PA-C [address] [place] [address] Other specified rheumatoid arthritis, multiple sites (HCC); [...] Date John rded Speak language other than Sri Lankan at home Not on file 11/10/2023 Want [...] on file documented as of this encounter Miscellaneous Notes * Telephone Encounter - Mary Trinity - 01/15/2024 3:26 PM EDT This is a [facility] patient. * Telephone Encounter - Ludy Yeboah - 01/15/2024 2:58 PM EDT ANNIE: 12/15 [facility] NOV: N/A Pt has 3 days of med left documented in this encounter Plan of Treatment Not on file documented as of this encounter Visit Diagnoses Diagnosis Other specified rheumatoid arthritis, multiple sites (HCC) Other osteoarthritis involving multiple joints documented in this encounter Care Teams Lead Shop Operator Relationship Specialty Start Date End Date Uyen Stone PA [address] [place] [address] PCP - General Physician Commercial Green Building Architect 12/15/22 France Mejia MD [address] [facility] [address] [place] [address] Wiring Mechanic Rheumatology 03/10/23 documented as of this encounter
== END 2025-06-05 23:59 | disposition home or self-care (01) ==
LOC: RAD 15:25
PROVIDERS: PCP Family Medicine; Visit Provider Family Medicine
DX: Z12.31 Encounter for screening mammogram for malignant neoplasm of breast (principal); R92.323 Mammographic fibroglandular density, bilateral breasts
CPT/HCPCS: 77063; 77067

== ENCOUNTER 2025-06-27 06:25 | Day surgery (SDC) | payer BC, SELFPAY ==
[2025-06-20 09:56] VITALS: BMI 28.3
--- NOTE | 2025-06-27 06:04 | EXP.GEN.HP ---
HPI HPI HPI: Patient presents for colonoscopy. She had colonoscopy in 2017 and had a tubular adenoma. With suboptimal preparation and adenomatous polyp of performed follow-up colonoscopy on 10/01/2019 which revealed several subtle diminutive possible polyps which were removed. These all returned as hyperplastic polyps. Given the previous adenomatous polyp 5-year follow-up colonoscopy was recommended. [facility] Disclaimer: The information contained in this section may have been updated after the patient was seen, as this information can be updated by other users. Medical History Cellulitis of finger of right hand Dental abscess Diabetes mellitus, type 2 Endometriosis Hypertension Loose right total knee arthroplasty Migraine Pneumonia Primary osteoarthritis of right knee Rheumatoid arthritis Sinusitis Surgical History History of cholecystectomy History of hysterectomy History of tonsillectomy History of vocal cord polypectomy Family History Other Family history of acute heart failure Family history of arthritis Family history of cancer Family history of diabetes mellitus type II Social History Smoking Status: Never smoker alcohol intake: never substance use type: other current occupational status: employed Travel in the last 8 weeks?: None household members: none housing: house current occupation: [employer] current occupational exposures/hazards: Yes caffeine: Yes Other Medical History Have you received the Flu Vaccine for this season: No Have you received the Pneumonia Vaccine: No Review of Systems Review of Systems Review of systems:: pertinent systems reviewed and negative unless documented below Meds Home Medications and Allergies Home Medications ?Medication ?Instructions ?Recorded ?Confirmed ?Type metformin 500 mg tablet 500 mg PO DAILY Diabetes 12/12/18 06/20/25 History leflunomide 20 mg tablet 20 mg PO DAILY Rheumatoid arthritis 06/16/19 06/20/25 History olmesartan 40 1 each PO DAILY High Blood Pressure 06/16/19 06/20/25 History mg-hydrochlorothiazide 25 mg tablet sodium,potassium,mag sulfates 17.5 See Rx Instructions PO .COMPLEX 06/03/25 06/20/25 Rx gram-3.13 gram-1.6 gram oral soln #354 mL (Suprep Bowel Prep Kit) tirzepatide 7.5 mg/0.5 mL 7.5 mg SQ WEEKLY 06/20/25 06/20/25 History subcutaneous pen injector (Krista) New Prescriptions to Start Prescriptions: Allergies Allergy/AdvReac Type Severity Reaction Status Date / Time tramadol Allergy Intermediate Hives Verified 06/27/25 07:00 aspirin Allergy Mild I-HIVES Verified 06/27/25 07:00 Exam Constitutional Constitutional: no acute distress *Routine HEENT Exam Head: Present normocephalic Eye: Present EOMI and PERRL ENT: Present mucous membranes moist *Routine Neck Exam Neck: Present supple; Absent lymphadenopathy *Routine Respiratory Exam Respiratory: Present CTA bilaterally *Routine Cardiovascular Exam Cardiovascular: Present RRR *Routine Abdominal Exam Abdominal: Present soft and normoactive bowel sounds; Absent tenderness *Routine Rectal Exam Rectal:: deferred *Routine Genitalia Exam Genitalia:: deferred *Routine Extremities Exam Extremities: Absent cyanosis, clubbing or edema *Routine Skin Exam Skin: Present warm; Absent rash *Routine Neurological Exam Neurological: Present alert and oriented X3 Assessment and Plan *Assessment and plan (1) Encounter for screening colonoscopy: Status: Acute Category: Medical Code(s): Z12.11 - Encounter for screening for malignant neoplasm of colon Plan Colonoscopy
[2025-06-27 07:05] VITALS: BP 120/77; PULSE 66; RESP 18; TEMP 36.2; O2SAT 98
[2025-06-27] MEDS: LACTATED RINGERS 1000ML 1,000 ML 50 ML IV (07:14)
--- NOTE | 2025-06-27 07:16 | EXP.ANES.CKL ---
[facility] Disclaimer: The information contained in this section may have been updated after the patient was seen, as this information can be updated by other users. Medical History Cellulitis of finger of right hand Dental abscess Diabetes mellitus, type 2 Endometriosis Hypertension Loose right total knee arthroplasty Migraine Pneumonia Primary osteoarthritis of right knee Rheumatoid arthritis Sinusitis Surgical History History of cholecystectomy History of hysterectomy History of tonsillectomy History of vocal cord polypectomy Family History Other Family history of acute heart failure Family history of arthritis Family history of cancer Family history of diabetes mellitus type II Social History (Updated 06/27/25 @ 07:07 by Shanice Morales RN) Smoking Status: Never smoker alcohol intake: never substance use type: other current occupational status: employed Travel in the last 8 weeks?: None household members: none housing: house current occupation: [employer] current occupational exposures/hazards: Yes caffeine: Yes Have you lived/traveled outside US in past 30 days?: No Contact w/someone who lives/traveled outside US past 30 days?: No Exposure to someone with infectious disease in past 14 days?: No Do you have a fever (greater than 100.4 F or 38 C)?: No Have you tested positive for COVID-19?: No Exposed to someone with COVID-19 in past 14 days?: No Do you have a sore throat?: No Do you have a cough?: No Do you have any weakness?: No Are you experiencing any nausea/vomitting?: No Do you have any diarrhea?: No Are you experiencing any unusual bleeding?: No Do you have any muscle aches/pain?: No Do you have any abdominal pain?: No Are you experiencing loss of taste or smell?: No [facility] Anesthesia Checklist Patient Identification Patient Identification: Arm Band Structural Data Admitted From: Home Planned Operative Procedure/s: Colonoscopy Consent for Planned Operative Procedure(s) Verified: Yes Verified Documents: Surgical Consent and History and Physical NPO Status Verified Time NPO: 03:30 (finished prep) Additional verifications Anesthesia Reactions: No Hx Blood Transfusions: No Blood Transfusion Reaction: No Airway Assessment Mallampati Score:: Class II C-Spine Mobility Assessed: Yes TMJ Mobility Assessed: Yes Dentition: Good Dentition Neurological Assessment Level of Consciousness: Awake, Alert and Appropriate Anesthesia Plan Anesthesia Risk discussed: Yes Anesthesia Plan: Verified ASA Class: II Anesthesia Type: MAC
[2025-06-27 07:18] LABS: POC Glucose,Bedside 100 gm/dL (70-110)
[2025-06-27 07:51] VITALS: BP 85/52; PULSE 61; RESP 14; TEMP 36.2; O2SAT 96
--- NOTE | 2025-06-27 07:51 | P.PCN_ITS ---
Procedure: Date: 06/27/25 Patient Date of :: 1965 Procedure Performed:: Total colonoscopy to terminal ileum with polypectomy using biopsy forceps Indications:: Patient presents for colonoscopy. She had colonoscopy in 2017 and had a tubular adenoma. With suboptimal preparation and adenomatous polyp of performed follow- up colonoscopy on 10/01/2019 which revealed several subtle diminutive possible polyps which were removed. These all returned as hyperplastic polyps. Given the previous adenomatous polyp 5-year follow-up colonoscopy was recommended. Performing Provider:: Quincy Torres MD Referring Provider:: SUSHMA Marshall Sedation:: MAC sedation Procedure:: Patient history was obtained and appropriate physical examination was performed. Patient's medications and allergies were reviewed. Informed consent was obtained after explaining the benefits, alternatives, and risks of the procedure including, but not limited to, bleeding, perforation, missed lesions, and adverse reaction to anesthesia medications. Patient was transported to endoscopy procedure room. Patient was connected to monitoring devices. Throughout the procedure the patient's blood pressure, pulse, and oxygen saturations were monitored continuously. Patient identification and planned procedure were verified by the staff. Patient was positioned in lateral decubitus position. Digital anorectal exam was performed. Variable stiffness Olympus colonoscope was inserted and advanced under direct visualization to the cecum. Adequacy of the colonic preparation was noted. The colonoscope was advanced a short distance into the terminal ileum. The colonoscope was then slowly withdrawn while carefully examining the color, texture, anatomy, and integrity of the mucosoa circumferentially. Within the rectum retroflexion was performed. Colonoscope was then withdrawn. Impression: Throughout the colon there was particulate undigested vegetable matter. This required high-volume trans colonoscopic irrigation and suctioning for clearance. Careful surveillance was carried out. At the rectosigmoid region there was a tiny diminutive possible hyperplastic polyp removed with biopsy forceps. Findings:: Notable undigested particulate vegetable matter Diminutive minuscule rectosigmoid polyp Recommendations:: Repeat colonoscopy pending pathology likely 5 to 7 years Complications:: None immediately apparent Estimated blood obtained (mL): 0 Colonoscopy Component Colonoscopy Component Was a colonoscopy performed during today's procedure?: Yes Recommended follow up colonoscopy of at least 10 years?: No If no, follow up colonoscopy recommended in ___ years?: 5-7 Reason for not recommending >/= 10 yr follow-up interval?: See above
[2025-06-27 08:01] VITALS: BP 93/63; PULSE 60; RESP 16; TEMP 36.2; O2SAT 98
[2025-06-27 08:11] VITALS: BP 103/79; PULSE 68; RESP 19; TEMP 36.2; O2SAT 99
[2025-06-27 08:21] VITALS: BP 102/71; PULSE 66; RESP 19; TEMP 36.2; O2SAT 99
== END 2025-06-27 08:25 | disposition home or self-care (01) ==
PROVIDERS: PCP Physician Assistant; Visit Provider Surgery
PROC: 0DJD8ZZ Inspection of Lower Intestinal Tract, Via Natural or Artificial Opening Endoscopic (ICD-10-PCS; CPT 45380; principal; 2025-06-27 07:30)
DX: Z12.11 Encounter for screening for malignant neoplasm of colon (principal); K62.1 Rectal polyp; E11.9 Type 2 diabetes mellitus without complications; I10 Essential (primary) hypertension; M17.11 Unilateral primary osteoarthritis, right knee; M06.9 Rheumatoid arthritis, unspecified; Z86.0101 Personal history of adenomatous and serrated colon polyps; Z88.5 Allergy status to narcotic agent; Z88.6 Allergy status to analgesic agent; Z79.84 Long term (current) use of oral hypoglycemic drugs; Z79.85 Long-term (current) use of injectable non-insulin antidiabetic drugs; Z79.899 Other long term (current) drug therapy
CPT/HCPCS: 45380; 82962; J2003; J2704; J7120

== ENCOUNTER 2025-08-22 08:12 | Outpatient (CLI) | payer BC, SELFPAY ==
--- OUTSIDE RECORDS SUMMARY | 2025-08-22 08:15 | XMS_ITS | Encounter Summary ---
Author Organization [employer] ([place], [place], [place], [place]) Address [address] [place] [address] Care Team Providers Care Personnel Psychologist Name Role Phone Uyen Stone Primary Care Provider [phone] France Mejia MD Unavailable Reason for Visit * Reason Comments Medication Refill Encounter Details Date Type Department Care Team (Late st Contact Info) Description 08/16/2022 Refill [facility] Rheumatology [address] [facility] [address] [place] [address] France Mejia MD [address] [facility] [address] [place] [address] Other specified rheumatoid arthritis, multiple sites (HCC); [...] knee documented in this encounter Care Teams Personnel Psychologist Relationship Specialty Start Date End Date Uyen Stone PA [address] [place] [address] PCP - General Physician Mixer Foam Rubber 12/15/22 France Mejia MD [address] [place] [address] Edi Programmer Analyst Rheumatology 03/10/23 documented as of this encounter
--- OUTSIDE RECORDS SUMMARY | 2025-08-22 08:16 | XMS_ITS | Encounter Summary ---
Author Organization [employer] ([place], [place], [place], [place]) Address [address] [place] [address] Care Team Providers Care Audience Coordinator Name Role Phone Uyen Stone Primary Care Provider [phone] France Mejia MD Unavailable Reason for Visit * Reason Comments Medication Refill Encounter Details Date Type Department Care Team (Late st Contact Info) Description 01/17/2024 Refill [facility] Rheumatology [address] [place] [address] France Mejia MD [address] [facility] [address] [place] [address] Other osteoarthritis involving multiple joints Social History [...] Date John rded Speak language other than Bulgarian at home Not on file 11/10/2023 Want [...] joints documented in this encounter Care Teams Audience Coordinator Relationship Specialty Start Date End Date Uyen Stone, PA [address] [place] [address] PCP - General Physician Insole Tape Stitcher [employer] 12/15/22 France Mejia MD [address] [facility] [address] [place] [address] Sewage Plant Operator Rheumatology 03/10/23 documented as of this encounter
--- OUTSIDE RECORDS SUMMARY | 2025-08-22 08:16 | XMS_ITS | Encounter Summary ---
Author Organization [employer] ([place], [place], [place], [place]) Address [address] [place] [address] Care Team Providers Care Dimension Warehouse Supervisor Name Role Phone Uyen Stone Primary Care Provider [phone] France Mejia MD Unavailable Reason for Visit * Reason Comments Medication Refill Encounter Details Date Type Department Care Team (Late st Contact Info) Description 01/16/2024 Refill [facility] Rheumatology [address] [place] [address] France Mejia MD [address] [facility] [address] [place] [address] Other specified rheumatoid arthritis, multiple sites (HCC) [...] Date John rded Speak language other than Slovenian at home Not on file 11/10/2023 Want [...] (HCC) documented in this encounter Care Teams Dimension Warehouse Supervisor Relationship Specialty Start Date End Date Uyen Stone PA [address] [place] [address] PCP - General Physician Soft Work Cigar Machine Operator 12/15/22 France Mejia MD 211 [facility] [address] [place] [address] Custody Assistant Rheumatology 03/10/23 documented as of this encounter
--- OUTSIDE RECORDS SUMMARY | 2025-08-22 08:16 | XMS_ITS | Encounter Summary ---
Author Organization [employer] ([place], [place], [place], [place]) Address [address] [place] [address] Care Team Providers Care Cushion Mat Maker Name Role Phone Uyen Stone Primary Care Provider [phone] France Mejia MD Unavailable Reason for Visit * Reason Onset Date Comments Medication Refill 01/15/2024 Encounter Details Date Type Department Care Team (Late st Contact Info) Description 01/15/2024 Refill [facility] Rheumatology [address] [place] [address] Mary Petersen, PA-C [address] [place] [address] Other specified rheumatoid arthritis, multiple sites (HCC); [...] Date John rded Speak language other than [place] Irish at home Not on file 11/10/2023 Want [...] joints documented in this encounter Care Teams Cushion Mat Maker Relationship Specialty Start Date End Date Uyen Stone PA [address] [place] [address] PCP - General Physician Credit Relationship Manager 12/15/22 France Mejia MD [address] [facility] [address] [place] [address] Director Regulatory Agency Rheumatology 03/10/23 documented as of this encounter
--- OUTSIDE RECORDS SUMMARY | 2025-08-22 08:16 | XMS_ITS | Encounter Summary ---
Author Organization [employer] ([place], [place], [place], [place]) Address [address] [place] [address] Care Team Providers Care Credit Risk Modeler Name Role Phone Uyen Stone Primary Care Provider [phone] France Mejia MD Unavailable Reason for Visit * Reason Onset Date Comments Medication Refill 04/18/2023 Encounter Details Date Type Department Care Team (Late st Contact Info) Description 04/18/2023 Refill [facility] Rheumatology [address] [facility] [address] [place] [address] France Mejia MD [address] [facility] [address] [place], [place] [id number] Other specified rheumatoid arthritis, multiple sites (HCC); [...] joints documented in this encounter Care Teams Credit Risk Modeler Relationship Specialty Start Date End Date Uyen Stone PA [address] [place] [address] PCP - General Physician Linux Server Engineer 12/15/22 France Mejia MD 211 [facility] [address] [place] [address] Client Program Manager Rheumatology 03/10/23 documented as of this encounter
--- OUTSIDE RECORDS SUMMARY | 2025-08-22 08:16 | XMS_ITS | Referral Summary ---
Author Organization [employer] ([place], [place], [place], [place]) Address [address] [place] [address] Care Team Providers Care Entry Level Name Role Phone Uyen Stone Primary Care Provider [phone] France Mejia MD Unavailable Allergies Active Allergy [...] Date John rded Speak language other than Citizen [place] at home Not on file 11/10/2023 Want [...] 3:08 PM EDT Oxygen Saturation 93% 02/07/2024 3: 08 PM EDT Inhaled Oxygen Concentration - - Weight 90.6 kg (199 lb 12.8 oz) 05/08/2024 2:23 PM EDT Height 157.5 cm (5' 2 ) 05/08/2024 2:23 PM EDT Body Mass Index 36.54 05/08/2024 2:23 PM EDT Plan of Treatment Not on file Insurance BLUE CROSS/BLUE SHIELD Care Teams Entry Level Relationship Specialty Start Date End Date Uyen Stone, PA [address] [place] [address] PCP - General Physician Senior Support Engineer 12/15/22 France Mejia MD 211 [facility] [address] [place] [address] Life Science Research Assistant Rheumatology 03/10/23
--- OUTSIDE RECORDS SUMMARY | 2025-08-22 08:16 | XMS_ITS | Clinical Summary ---
Author Organization [employer] ([place], [place], [place], [place]) Address [address] [place] [address] Care Team Providers Care Brick Shader Name Role Phone Uyen Stone Primary Care Provider [phone] France Mejia MD Unavailable Allergies Active Allergy [...] Date John rded Speak language other than Moldovan at home Not on file 11/10/2023 Want [...] Shingles Vaccine (Zoster) (1 of 2) 2015 Tobacco Cessation Counseling and Screening (12+) 05/0805/08/2024 COVID-19 VACCINE (2 - season) 06/23/202504/2021 Influenza Vaccine (#1) 2025 DTAP/TDAP/TD VACCINES (2 - Td or Tdap) 10/04/2028 Insurance [place] [id number] BLUE CROSS/BLUE SHIELD Care Teams Brick Shader Relationship Specialty Start Date End Date Uyen Stone, SUSHMA [address] [place] [address] PCP - General Physician Fabrication And Assembly Supervisor 12/15/22 France Mejia MD 211 [facility] [address] [place] [address] Junior Software Engineer Rheumatology 03/10/23
[2025-08-22 09:16] LABS: Hematocrit 36.6 % (37.0-47.0); Hemoglobin 12.3 g/dL (12.2-16.2); Immature Granulocytes % 0 %; Mean Corpuscular HGB Conc 33.6 g/dL (31.8-35.4); Mean Corpuscular Hemoglobin 30.1 pg (27.0-31.2); Mean Corpuscular Volume 89.7 fl (81-99); Nucleated Red Blood Cells % 0 %; Platelet Count 133 K/mm3 (142-424); Red Blood Count 4.08 M/mm3 (4.20-5.40); Red Cell Distribution Width-SD 39.7 fL
[2025-08-22 09:51] LABS: White Blood Count 1.7 K/mm3 (4.8-10.8)
[2025-08-22 09:52] LABS: Chloride 106 mmol/L (98-107)
[2025-08-22 09:53] LABS: Albumin Level 4.7 g/dl (3.5-5.0); Potassium 4.0 mmoL/L (3.5-5.1); Sodium 136 mmol/L (136-145)
[2025-08-22 09:55] LABS: Alanine Aminotransferase 13 U/L (12-78); Anion Gap 8.0 mEq/L (5-15); Aspartate Amino Transferase 25 U/L (14-36); Blood Urea Nitrogen 14 mg/dl (7-17); Carbon Dioxide 26 mmol/L (22.0-30.0); Creatinine,Serum 1.10 mg/dl (0.52-1.04); Estimated Glomerular Filt Rate 51 ml/min (>60); GFR (African American) 61 ML/MIN (>60)
[2025-08-22 09:56] LABS: Albumin/Globulin Ratio 2.4 (1.1-1.8); Alkaline Phosphatase 113 U/L (38-126); Bilirubin,Total 0.2 mg/dl (0.2-1.3); Calcium 8.8 mg/dl (8.4-10.2); Globulin 2.0 g/dL (1.3-3.2); Glucose 86 mg/dl (74-100); Total Protein,Serum 6.7 g/dl (6.3-8.2)
[2025-08-22 10:51] LABS: C-Reactive Protein 1.3 mg/L (0-4)
[2025-08-22 11:58] LABS: RBC Morphology Normal; Total Cells Counted 100
== END 2025-08-22 23:59 | disposition home or self-care (01) ==
LOC: LAB 08:13
PROVIDERS: PCP Physician Assistant; Visit Provider Internal Medicine Rheumatology
DX: D72.819 Decreased white blood cell count, unspecified (principal); M06.89 Other specified rheumatoid arthritis, multiple sites; M15.0 Primary generalized (osteo)arthritis; Z79.899 Other long term (current) drug therapy
CPT/HCPCS: 36415; 80053; 85007; 85025; 85651; 86140

== ENCOUNTER 2025-09-17 08:28 | Outpatient (CLI) | payer BC, SELFPAY ==
--- OUTSIDE RECORDS SUMMARY | 2024-10-03 04:00 | XMS_ITS ---
Author Organization [facility] Address [address] [facility] [address] [place] [id number] Care Team Providers Care Property Assessment Monitor Name Role Phone Tony Hennessy Primary Care Provider Uyen Stone [phone] Allergies Allergen (clinical drug ingredient) Drug/Non Drug Allergy documented on EMR Reaction Allergy Type Onset Date Status aspirin Aspirin Unknown Drug Allergy Active valsartan Diovan angioedema - see note 11/20/06 Drug Allergy Active ibuprofen Ibuprofen Unknown Drug Allergy Active codeine Codeine Unknown Drug Allergy Active Results Component Value Reference Range Notes CBC Venipuncture (in house) Reviewed date:10/09/2024 03:49:50 PM Interpretation: Performing Lab: Notes/Report: wbc 1.8 3.5 - 10 lymph 19.6 15 - 50 mid 8.5 2 - 15 gran 71.9 35 - 80 rbc 3.96 3.5 - 5.5 hgb 11.8 11.5 - 16.5 hct 34.3 35 - 55 mcv 29.8 75 - 100 mch 34.4 25 - 35 mchc 135 31 - 38 Glycohemoglobin A1c (in hous e) Reviewed date:10/09/2024 03:49:50 PM Interpretation:5.0% Performing Lab: Notes/Report: 5.0% glycohemoglobin 5.0% 5 - 6.5 % P-Vitamin B12 Reviewed date:10/09/2024 03:49:50 PM Interpretation: Performing Lab: Notes/Report: Test performed by [employer], [facility] [address] [place] [address] , [address], [place] [address] Luis Dickson MD, Lead Front End Developer CLIA: [id number] Vitamin B12 305 246-4604 pg/mL P-Comprehensive Metabolic Pa nehemias (CMP) Reviewed date:10/09/2024 03:49:50 PM Interpretation: Performing Lab: Notes/Report: Test performed by [facility] [address] , [address], [place] [address] Luis Dickson MD, Lead Front End Developer CLIA: [id number] Sodium 144 135-145 mmol/L Potassium 4.2 3.5-5.3 mmol/L Chloride 106 97-108 mmol/L CO2 24 22-32 mmol/L Glucose 105 65-99 mg/dL BUN 27 6-20 mg/dL Creatinine 1.10 0.50-1.00 mg/dL Calcium 9.4 8.6-10.4 mg/dL eGFR by Creatinine 58 >59 mL/min/1.73m2 Protein 7.1 6.0-8.3 g/dL Albumin 4.3 3.5-5.3 g/dL Alkaline Phosphatase 123 35-121 IU/L ALT (SGPT) 14 <5-47 IU/L AST (SGOT) 17 <5-40 IU/L Bilirubin, Total <0.2 <0.2-1.2 mg/dL A/G Ratio 1.5 1.1-2.5 P-Ferritin Reviewed date:10/09/2024 03:49:50 PM Interpretation: Performing Lab: Notes/Report: Test performed by [facility] [address] [place] [address] , [address], [place] [address] Luis Dickson MD, Lead Front End Developer CLIA: [id number] Ferritin 154.0 13.0-301.0 ng/mL P-Iron Reviewed date:10/09/2024 03:49:50 PM Interpretation: Performing Lab: Notes/Report: Test performed by [facility] [address] [place] [address] , [address], [place] [address] Luis Dickson MD, Lead Front End Developer CLIA: [id number] Iron 38 37-145 ug/dL P-Microalbumin/Creatinine, R andom Urine Sample Reviewed date:10/09/2024 03:49:50 PM Interpretation: Performing Lab: Notes/Report: Test performed by [facility] [address] [place] [address] , [address], [place] [address] Luis Dickson MD, Lead Front End Developer CLIA: [id number] Albumin/Creatinine Ratio, Urine 12 0-30 ug/m g Microalbumin, Urine, Random 0.9 Creatinine, Urine 72.8 P-Vitamin D 25-Hydroxy Reviewed date:10/09/2024 03:49:50 PM Interpretation: Performing Lab: Notes/Report: Test performed by [facility] [address] [place] [address] [address], [place] [address] Luis Dickson MD, Lead Front End Developer CLIA: [id number] Vitamin D 25-Hydroxy 13.3 30.0-100.0 ng/mL Interpretation of Vitamin D 25 OH: < 20 ng/mL - Deficiency 20 - 29 ng/mL - Insufficiency 30 - 100 ng/mL - Sufficiency > 100 ng/mL - Super-therapeutic- toxicity may occur above this level. Clinical correlation required. REASON FOR VISIT check up and refills, Needs labs, shingles, & flu vaccines Medications Medication SIG (Take, Route, Frequency, Duration) Notes Start Date End Date Status Vitamin D3 25 MCG (1000 UT) 3 tab Orally once a day 03/13/2019 Acti ve metFORMIN HCl ER 500 MG 1 tab(s) orally once daily; Duration: 90 days Active Leflunomide 20 MG 1 tab(s) orally once a day; Duration: 30 day(s) Active Mounjaro 7.5 MG/0.5ML 7.5 mg Subcutaneou s once a week 10/03/2024 Active Benicar HCT 40-25 MG 1 tab(s) orally onc e a day; Duration: 90 days Active Vitamin B12 1000 MCG 1 tablet Orally Onc e a day; Duration: 30 day(s) Active Ferrous Sulfate 325 (65 Fe) MG 1 tablet Orally every other day Active Vital Signs Blood pressure systolic 110 mm Hg 10/03/20 24 Blood pressure diastolic 60 mm Hg 024 Heart Rate 92 /min 10/03/2024 Height 63 in 10/03/2024 Weight 189.0 lbs 10/03/2024 BMI 33.48 kg/m2 10/03/2024 Encounters Encounter Location Date Provider Diagnosis [facility] [address] [place] [id number] 10/03/2024 Uyen Stone Essential hypertensi on I10 ; Vitamin D deficiency E55.9 ; Vitamin B12 deficiency E53.8 ; Iron deficiency anemia, unspecified iron deficiency anemia type D50.9 ; Mixed hyperlipidemia E78.2 and Type 2 diabetes mellitus without complication, unspecified whether shelter insulin use E11.9 Assessments Encounter Date Diagnosis (ICD Code) Assessment Notes Treatment Notes Treatment Clinical Notes Section Notes 10/03/2024 Essential hypertension (ICD-10 - I10) 10/03/2024 Vitamin D deficiency (ICD-10 - E55.9) 10/03/2024 Vitamin B12 deficiency (ICD-10 - E53.8) 10/03/2024 Iron deficiency anemia, unspecified iron deficiency anemia type (ICD-10 - D50.9) 10/03/2024 Mixed hyperlipidemia (ICD-10 - E78.2) 10/03/2024 Type 2 diabetes mellitus without complication, unspecified whether predatory animal exterminator insulin use (ICD-10 - E11.9) Plan Of Treatment Medication Medication Name Sig Start Date Stop Date Notes metFORMIN HCl ER 500 MG 1 tab(s) orally once daily; Duration: 90 days Mounjaro 7.5 MG/0.5ML 7.5 mg Subcutaneous once a week 09/22 Mounjaro 5 MG/0.5ML inject THE contents of 1 pen subcutaneously ONCE a WEEK as directed Benicar HCT 40-25 MG 1 tab(s) orally onc e a day; Duration: 90 days Next Appt Details Follow Up: via phone to repo rt test results, Reason: Progress Notes * CYNTHIA JUDDOB: [birth year] (60 yo F)Acc No.[id number]:10/03/2024 Progress Notes Patient: KLEVER YANG Provider: SUSHMA Sandoval :1965 A ge:59 Y S ex:Female Date:10/03/2024 Address:[address] [place] [address], [place] [id number] Pcp:R Beto Gerhard Subjective: * Chief Complaints: * 1 . Check up and refills. 2. Needs labs, shingles, & flu vaccines. * HPI: H PI: 59 year old female presents with c/o Patient is here today for?Pt is here today for a check up and refills. Pt sts she is doing well and has no new concerns or complaints at this time. * ROS: A LLERGY: Cough y es, n ot productive. n o R unny nose.?Scratchy throat y es, r eports voice loss. E ar fullness yes, r ight ear.?no S inus congestion. D ERMATOLOGY: no R dayna. n o H kel. G ASTROENTEROLOGY: no V omiting. n o D iarrhea. U ROLOGY: no D ifficulty urinating. n o B lood in urine. * Medical History: H BP, Torn medial meniscus right knee, Laryngeal polyps. * Surgical History: h ysterectomy vaginal , tonsillectomy , Gallbladder , removal of laryngeal polyps/ Suraj León , total rt knee replacement 08/01/23. * Hospitalization/Major Diagno stic Procedure: H ER- twisted left knee 04-25-2015, [facility]-lost voice 01/06. * Family History: F ather: 66 yrs, diagnosed with Hypertension, Cancer. M other: 61 yrs, diagnosed with Diabetes, Hypertension, Cancer. P aternal Grand Father: . P aternal Grand Mother: . M aternal Grand Father: . M aternal Grand Mother: .?1 brother(s) , 1 sister(s) . 3 daughter(s) . . Brother and sister both with CAD (stents). * Social History: C URRENT TOBACCO USE S moking Status: Patient does NOT smoke. C affeine: yes, frequency:daily. Exercise: no. Home smoke detector use: yes. Marital Status: . New since last visit: none. Occupation: yes. Past smoking status: no. Occup. exposure: none. Recreational drug use: no. Alcohol: no. Sexually active: yes. Travel ouside [place]: no. * Medications: T aking Ferrous Sulfate 325 (65 Fe) MG Tablet 1 tablet Orally every other day , Taking Vitamin B12 1000 MCG Tablet Extended Release 1 tablet Orally Once a day , Taking Leflunomide 20 MG Tablet 1 tab(s) orally once a day , Taking Vitamin D3 25 MCG (1000 UT) Tablet Chewable 3 tab Orally once a day , Taking metFORMIN HCl ER 500 MG Tablet Extended Release 24 Hour 1 tab(s) orally once daily , Taking Mounjaro 5 MG/0.5ML Solution Pen-injector inject THE contents of 1 pen subcutaneously ONCE a WEEK as directed , Taking Benicar HCT 40-25 MG Tablet 1 tab(s) orally once a day , Medication List reviewed and reconciled with the patient * Allergies: C odeine, Aspirin, Ibuprofen, Diovan: angioedema - see note 11/20/06. Objective: * Vitals: W t:189.0, Temp:97.3, BP:110/60, HR:92, Nurse:ESTHER, Ht: 63, BMI:33.48. * Examination: G eneral Examination: General Appearance: N AD. H EENT: u nremarkable.?Oral cavity: n o lesions, mucosa moist and WNL, no erythema. N sanket: s upple, no lymphadenopathy. C hest: n ormal shape and expansion. H eart: R SR. L ungs: c lear to auscultation. A bdomen: bowel sounds present, soft and nontender, no organomegaly or masses, no guarding or rigidity. N eurologic Exam: I ntact, gait normal. S kin: n ormal, no rash. P eripheral pulses: n ormal (2+) bilaterally. E xtremities: n o leg edema. Assessment: * Assessment: 1. E ssential hypertension - I10 (Primary) 2 . V itamin D deficiency - E55.9 3 . V itamin B12 deficiency - E53.8 4 . I reinaldo deficiency anemia, unspecified iron deficiency anemia type - D50.9 5 . M ixed hyperlipidemia - E78.2 6 . T ype 2 diabetes mellitus without complication, unspecified whether predatory animal exterminator insulin use - E11.9 Plan: * Treatment: Value Reference Range w bc 1.8 3.5 - 10 * l ymph 19.6 15 - 50 * m id 8.5 2 - 15 * g ran 71.9 35 - 80 * r bc 3.96 3.5 - 5.5 * h gb 11.8 11.5 - 16.5 * h ct 34.3 35 - 55 * m cv 29.8 75 - 100 * m ch 34.4 25 - 35 * m chc 135 31 - 38 * Rea Ayala 10/03/2024 11:4 9:25 AM > Uyen Stone 10/09/2024 3:49:42 PM > see TE 2.?Vitamin D deficiency?LAB: P-Vitamin D 25-Hydroxy (Collection Date & Time - 10/03/2024 10:55 AM) * Value Reference Range V itamin D 25-Hydroxy 13.3 L 30.0-100.0 - ng/mL * Uyen Stone Matilde 10/09/2024 3 :49:42 PM > see TE 3.?Vitamin B12 deficiency?LAB: P-Vitamin B12 (Collection Date & Time - 10/03/2024 10:55 AM)* Value Reference Range V itamin B12 039 104-2793 - pg/mL * Uyen Stone Matilde 10/09/2024 3 :49:42 PM > see TE 4.?Iron deficiency anemia, unspecified iron deficiency anemia type?LAB: P-Ferritin (Collection Date & Time - 10/03/2024 10:55 AM)* Value Reference Range F erritin 154.0 13.0-301.0 - ng/mL * Uyen Stone 10/09/2024 3 :49:42 PM > see TE ?LAB: P-Iron (Collection Date & Time - 10/03/2024 10:55 AM)* Value Reference Range I reinaldo 38 37-145 - ug/dL * Uyen Stone 10/09/2024 3 :49:42 PM > see TE 5.?Type 2 diabetes mellitus without complication, unspecified whether predatory animal exterminator insulin use? Refill metFORMIN HCl ER Tablet Extended Release 24 Hour, 500 MG, 1 tab(s), orally, once daily, 90 days, 90, Refills 3;?Stop Mounjaro Solution Pen-injector, 5 MG/0.5ML, inject THE contents of 1 pen subcutaneously ONCE a WEEK as directed;?Start Mounjaro Solution Auto-injector, 7.5 MG/0.5ML,7.5 mg, Subcutaneous, once a week, 4, Refills 2.?LAB: P-Comprehensive Metabolic Panel (CMP) (Collection Date & Time - 10/03/2024 10:55 AM)* Value Reference Range A /G Ratio 1.5 1.1-2.5 - * A lbumin 4.3 3.5-5.3 - g/dL * A lkaline Phosphatase 123 H 35-121 - IU/L * A LT (SGPT) 14 <5-47 - IU/L * A ST (SGOT) 17 <5-40 - IU/L * B ilirubin, Total <0.2 <0.2-1.2 - mg/dL * B UN 27 H 6-20 - mg/dL * C alcium 9.4 8.6-10.4 - mg/dL * C hloride 106 97-108 - mmol/L * C O2 24 22-32 - mmol/L * C reatinine 1.10 H 0.50-1.00 - mg/dL * G lucose 105 H 65-99 - mg/dL * P otassium 4.2 3.5-5.3 - mmol/L * S odium 144 135-145 - mmol/L * P rotein 7.1 6.0-8.3 - g/dL * e GFR by Creatinine 58 L >59 - mL/min/1.73m2 * Uyen Stone 10/09/2024 3 :49:42 PM > see TE ?LAB: P-Microalbumin/Creatinine, Random Urine Sample (Collection Date & Time - 10/03/2024 10:55 AM)* Value Reference Range A lbumin/Creatinine Ratio, Urine 12 0-30 - ug /mg * C reatinine, Urine 72.8 - mg/dL * M icroalbumin, Urine, Random 0.9 - mg/dL * Uyen Stone 10/09/2024 3 :49:42 PM > see TE ?LAB: Glycohemoglobin A1c (in house) (Collection Date & Time - 10/03/2024)? 5.0%* Value Reference Range g lycohemoglobin 5.0% 5 - 6.5 % * Rea Ayala 10/03/2024 11:4 8:40 AM > Uyen Stone 10/09/2024 3:49:42 PM > see TE * Procedure Codes: 8 5025 CBC WITH AUTO DIFF, 21692 GLYCATED HEMOGLOBIN TEST, Modifiers: QW * Follow Up: v ia phone to report test results * Images: Billing Information: * Visit Code: 57601 Office Visit, Est Pt., Level 4. * Procedure Codes: 22616 CBC WITH AUTO DIFF. 11173 GLYCATED HEMOGLOBIN TEST. Modifiers: QW * Electronic signature of SUSHMA Diallo on 09/17/2025 at 08:33 AM EST Sign off status: Pending * Provider: SUSHMA Sandoval Date: 12/04/2023 Generated for Sincere garcia/Danica/Homero on: 11/17/2024 08:33 AM EST History and Physical Notes * HPI (History of Present Illness) Category Sub-Category Detail Notes Category Not es HPI Patient is here today for Pt is here today for a check up and refills. Pt sts she is doing well and has no new concerns or complaints at this time Examination Category Sub-Category Detail Notes Category Not es General Examination HEENT: unremarkable Heart: RSR Lungs: clear to auscultatio n Abdomen: bowel sounds present , soft and nontender, no organomegaly or masses, no guarding or rigidity Extremities: no leg edema General Appearance: NAD Skin: normal, no rash Neurologic Exam: Intact, gait normal Neck: supple, no lymphaden opathy Oral cavity: no lesions, mucosa m oist and WNL, no erythema Peripheral pulses: normal (2+) bilatera lly Chest: normal shape and exp ansion
--- OUTSIDE RECORDS SUMMARY | 2025-01-01 11:00 | XMS_ITS ---
[facility] Address [address] [place] [phone] Care Team Providers Care Broodmare Foreman Name Role Phone Tony Hennessy Primary Care Provider [phone] Uyen Stone Unavailable [phone] Allergies Allergen (clinical drug ingredient) Drug/Non Drug Allergy documented on EMR Reaction Allergy Type Onset Date Status aspirin Aspirin Unknown Drug Allergy Active valsartan Diovan angioedema - see note 11/20/06 Drug Allergy Active ibuprofen Ibuprofen Unknown Drug Allergy Active codeine Codeine Unknown Drug Allergy Active Results Component Value Reference Range Notes CBC Venipuncture (in house) Reviewed date:01/23/2025 03:45:08 PM Interpretation:WBC 2.1, HCT 34.3 Performing Lab: Notes/Report: WBC 2.1, HCT 34.3 wbc 2.1 3.5 - 10 lymph 18.8% 15 - 50 mid 6.8% 2 - 15 gran 74.4% 35 - 80 rbc 3.93 3.5 - 5.5 hgb 11.8 11.5 - 16.5 hct 34.3 35 - 55 mcv 87.3 75 - 100 mch 30.2 25 - 35 mchc 34.6 31 - 38 platlet 140 100 - 400 Glycohemoglobin A1c (in hous e) Reviewed date:01/23/2025 03:45:16 PM Interpretation:5.0% Performing Lab: Notes/Report: 5.0% glycohemoglobin 5.0% 5 - 6.5 % [facility] Reviewed date:04/10/2025 04:37:38 PM Interpretation:pt declined Performing Lab: Notes/Report: pt declined REASON FOR VISIT 3 month f/u, Needs labs, bone density screening, & shingles vaccine Medications Medication SIG (Take, Route, Frequency, Duration) Notes Start Date End Date Status Vitamin D3 25 MCG (1000 UT) 3 tab Orally once a day 03/13/2019 Acti ve Vitamin B12 1000 MCG 1 tablet Orally Onc e a day; Duration: 30 day(s) Active Leflunomide 20 MG 1 tab(s) orally once a day; Duration: 30 day(s) Active Ferrous Sulfate 325 (65 Fe) MG 1 tablet Orally every other day Active Mounjaro 7.5 MG/0.5ML INJECT THE CONTENT S OF 1 PEN (7.5 MG / 0.5ML) SUBCUTANEOUSLY ONCE A WEEK; Duration: 28 Active Mounjaro 7.5 MG/0.5ML 7.5 mg Subcutaneou s once a week Active Benicar HCT 20-12.5 MG 1 tablet Orally O nce a day; Duration: 90 days 01/01/2025 Active metFORMIN HCl ER 500 MG 1 tab(s) orally once daily; Duration: 90 days Active Vital Signs Blood pressure systolic 90 mm Hg 01/02/20 25 Blood pressure diastolic 54 mm Hg 025 Heart Rate 81 /min 01/01/2025 Height 63 in 01/01/2025 Weight 173.0 lbs 01/01/2025 BMI 30.64 kg/m2 01/01/2025 Encounters Encounter Location Date Provider Diagnosis [facility] [address] [id number] 01/01/2025 Uyen Stone Essential hypertensi on I10 ; Vitamin D deficiency E55.9 ; Vitamin B12 deficiency E53.8 ; Iron deficiency anemia, unspecified iron deficiency anemia type D50.9 ; Mixed hyperlipidemia E78.2 ; Type 2 diabetes mellitus without complication, unspecified whether alf insulin use E11.9 and Osteoporosis screening Z13.820 Assessments Encounter Date Diagnosis (ICD Code) Assessment Notes Treatment Notes Treatment Clinical Notes Section Notes 01/01/2025 Essential hypertension (ICD-10 - I10) 01/01/2025 Vitamin D deficiency (ICD-10 - E55.9) 01/01/2025 Vitamin B12 deficiency (ICD-10 - E53.8) 01/01/2025 Iron deficiency anemia, unspecified iron deficiency anemia type (ICD-10 - D50.9) 01/01/2025 Mixed hyperlipidemia (ICD-10 - E78.2) 01/01/2025 Type 2 diabetes mellitus without complication, unspecified whether alf insulin use (ICD-10 - E11.9) 01/01/2025 Osteoporosis screening (ICD-10 - Z13.820) Plan Of Treatment Medication Medication Name Sig Start Date Stop Date Notes Benicar HCT 40-25 MG 1 tab(s) orally onc e a day; Duration: 90 days Mounjaro 7.5 MG/0.5ML 7.5 mg Subcutaneous once a week Benicar HCT 20-12.5 MG 1 tablet Orally O nce a day; Duration: 90 days 01/01/2025 metFORMIN HCl ER 500 MG 1 tab(s) orally once daily; Duration: 90 days Pending Test Test Name Order Date P-Vitamin B12 01/01/2025 P-Comprehensive Metabolic Panel (CMP) P-Ferritin 01/01/2025 P-Iron 01/01/2025 P-Lipid Panel 01/01/2025 P-Vitamin D 25-Hydroxy 01/01/2025 Next Appt Details Follow Up: via phone to repo rt test results, Reason: Progress Notes * CYNTHIA JUDDOB: [birth year] (60 yo F)Acc No.[id number]:01/01/2025 Progress Notes Patient: KLEVER YANG Provider: SUSHMA Sandoval :1965 A ge:59 Y S ex:Female Date:01/01/2025 Address:[address] [place] [address], [facility] [id number] Pcp:Tony Hennessy Subjective: * Chief Complaints: * 1 . 3 month f/u. 2. Needs labs, bone density screening, & shingles vaccine. * HPI: C ardiology: The pt is here today for a check up. Pt states she is doing good and denies any new concerns. 59 year old female presents with c/o Dizziness. Denies : Chest Pain. D enies : Short of Breath. D enies : Palpitations. * ROS: D ERMATOLOGY: no R dayna. n o H kel. G ASTROENTEROLOGY: no N ausea. n o V omiting. n o D iarrhea.? U ROLOGY: no D ifficulty urinating. n o B lood in urine. * Medical History: H BP, Torn medial meniscus right knee, Laryngeal polyps. * Surgical History: h ysterectomy vaginal , tonsillectomy , Gallbladder , removal of laryngeal polyps/ Suraj León , total rt knee replacement 08/01/23. * Hospitalization/Major Diagno stic Procedure: H ER- twisted left knee 04-25-2015, [facility]-lost voice 01/06. * Family History: F ather: [...] tab Orally once a day , Taking Benicar HCT 40-25 MG Tablet 1 tab(s) orally once a day , Taking metFORMIN HCl ER 500 MG Tablet Extended Release 24 Hour 1 tab(s) orally once daily , Taking Mounjaro 7.5 MG/0.5ML Solution Auto- injector INJECT THE CONTENTS OF 1 PEN (7.5 MG / 0.5ML) SUBCUTANEOUSLY ONCE A WEEK , Medication List reviewed and reconciled with the patient * Allergies: C odeine, Aspirin, Ibuprofen, Diovan: angioedema - see note 11/20/06. Objective: * Vitals: W t:173.0, Temp:98.1, BP:90/54, HR:81, Nurse:MAREK, Ht: 63, BMI:30.64. * Examination: G eneral Examination: General Appearance: [...] 2 diabetes mellitus without complication, unspecified whether alf insulin use - E11.9 7 . O steoporosis screening - Z13.820 ? Plan: * Treatment: 2. V itamin D deficiency L AB: P-Vitamin D 25-Hydroxy 3. V itamin B12 deficiency L AB: P-Vitamin B12 4. I reinaldo deficiency anemia, unspecified iron deficiency anemia type L AB: P-Ferritin L AB: P-Iron L AB: CBC Venipuncture (in house) (Collection Date & Time - 01/01/2025) W BC 2.1, HCT 34.3 Value Reference Range w bc 2.1 3.5 - 10 * l ymph 18.8% 15 - 50 * m id 6.8% 2 - 15 * g ran 74.4% 35 - 80 * r bc 3.93 3.5 - 5.5 * h gb 11.8 11.5 - 16.5 * h ct 34.3 35 - 55 * m cv 87.3 75 - 100 * m ch 30.2 25 - 35 * m chc 34.6 31 - 38 * p latlet 140 100 - 400 * Boyden,Shanda L 01/01/2025 4:3 0:08 PM >Uyen Stone 01/23/2025 3:45:04 PM > see TE 5.?Mixed hyperlipidemia?LAB: P-Lipid Panel6.?Type 2 diabetes mellitus without complication, unspecified whether alf insulin use? Refill metFORMIN HCl ER Tablet Extended Release 24 Hour, 500 MG, 1 tab(s), orally, once daily, 90 days, 90, Refills 3;?Start Mounjaro Solution Auto- injector, 7.5 MG/0.5ML, 7.5 mg, Subcutaneous, once a week, 4, Refills 5.?LAB: Glycohemoglobin A1c (in house) (Collection Date & Time - 01/01/2025)? 5.0%* Value Reference Range g lycohemoglobin 5.0% 5 - 6.5 % * Shanda Nazario 01/01/2025 4:3 0:48 PM >Uyen Stone 01/23/2025 3:45:12 PM > see TE 7.?Osteoporosis screening?Imaging: [facility] (Performed Date - 04/07/2025)?pt declined* Uyen Stone 01/02/2025 8: 49:44 AM >Araceli Soto 01/02/2025 8:56:01 AM > faxed to [facility] Mechelle Devine 04/07/2025 11:14:55 AM EDT > pt denied for Uyen Navarro 04/10/2025 04:37:34 PM EDT >noted * Procedure Codes: 8 3036 GLYCATED HEMOGLOBIN TEST, Modifiers: QW , 62762 CBC WITH AUTO DIFF, G8752 MOST RECENT SYSTOLIC BP < 140MM HG, G8754 MOST RECENT DIASTOLIC BP < 90MM HG, 3044F HG A1C LEVEL LT 7.0% * Follow Up: v ia phone to report test results * Images: Billing Information: * Visit Code: 94310 Office Visit, Est Pt., Level 4. * Procedure Codes: 74430 GLYCATED HEMOGLOBIN TEST. Modifiers: QW 35059 CBC WITH AUTO DIFF. G8752 MOST RECENT SYSTOLIC BP < 140MM HG. G8754 MOST RECENT DIASTOLIC BP < 90MM HG. 3044F HG A1C LEVEL LT 7.0%. * Electronic signature of SUSHMA Diallo on 09/17/2025 at 08:33 AM EST Sign off status: Pending * Provider: SUSHMA Sandoval Date: 0 01/01/2025 Generated for Sincere garcia/Danica/eTransmitting on: 1 11/17/2024 08:33 AM EST History and Physical Notes * HPI (History of Present Illness) Category Sub-Category Detail Notes Category Not es Cardiology Short of Breath Chest Pain Palpitations Dizziness Examination Category Sub-Category Detail Notes Category Not [...]
--- OUTSIDE RECORDS SUMMARY | 2025-01-28 09:55 | XMS_ITS ---
Author Organization [facility] Address [address] [facility] [address] [place] [id number] Care Team Providers Care Java J2Ee Application Developer Name Role Phone Tony Hennessy Primary Care Provider [phone] [place] nunna Unavailable [phone] Results Component Value Reference Range Notes CBC Fingerstick (in house) Reviewed date:02/13/2025 12:37:24 PM Interpretation:not performed Performing Lab: Notes/Report: not performed P-Vitamin B12 Reviewed date:01/30/2025 09:13:21 AM Interpretation:Normal Performing Lab: Notes/Report: Test performed by [facility] [address] [place] [address] , [address], [place] [address] Luis Dickson MD, Systems Development Consultant CLIA: [id number] Vitamin B12 092 104-1197 pg/mL P-Comprehensive Metabolic Pa nehemias (CMP) Reviewed date:01/30/2025 09:13:21 AM Interpretation:Na 147, Chl 110, BUN 21, Creat 1.03 Performing Lab: Notes/Report: Test performed by [facility] [address] [place], [place] [address] [place] , [address], [place] [address] Luis Dickson MD, Systems Development Consultant CLIA: [id number] Sodium 147 135-145 mmol/L Potassium 3.9 3.5-5.3 mmol/L Chloride 110 97-108 mmol/L CO2 22 22-32 mmol/L Glucose 82 65-99 mg/dL BUN 21 6-20 mg/dL Creatinine 1.03 0.50-1.00 mg/dL Calcium 9.6 8.6-10.4 mg/dL eGFR by Creatinine 62 >59 mL/min/1.73m2 Protein 7.3 6.0-8.3 g/dL Albumin 4.6 3.5-5.3 g/dL Alkaline Phosphatase 106 35-121 IU/L ALT (SGPT) 10 <5-47 IU/L AST (SGOT) 16 <5-40 IU/L Bilirubin, Total 0.3 <0.2-1.2 mg/dL A/G Ratio 1.7 1.1-2.5 P-Ferritin Reviewed date:01/30/2025 09:13:21 AM Interpretation:Normal Performing Lab: Notes/Report: Test performed by [facility] [address] [place] [address] , [place] [address] Luis Dickson MD, Systems Development Consultant CLIA: [id number] Ferritin 133.0 13.0-301.0 ng/mL P-Iron Reviewed date:01/30/2025 09:13:21 AM Interpretation:Normal Performing Lab: Notes/Report: Test performed by [facility] [address] [place] [address] , [address], [place] [address] Luis Dickson MD, Systems Development Consultant CLIA: [id number] Iron 46 37-145 ug/dL P-Lipid Panel Reviewed date:01/30/2025 09:13:21 AM Interpretation:Normal Performing Lab: Notes/Report: Test performed by [facility] [address] [place] [address] , [address], [place] [address] Luis Dickson MD, Systems Development Consultant CLIA: [id number] Cholesterol 158 <200 mg/dL Triglycerides 117 <150 mg/dL HDL Cholesterol 46 >39 mg/dL Cholesterol / HDL Ratio 3.43 0.00-4.44 Ratio Non-HDL Cholesterol 112 <130 mg/dL LDL Cholesterol (Calculation) 89 <130 mg/dL LDL Cholesterol Levels* Less than 100 mg/dL Optimal 100 to 129 mg/dL Near Optimal/ Above Optimal 130 to 159 mg/dL Borderline High 160 to 189 mg/dL High 190 mg/dL and above Very High * Categories as recommended by the 2004 ATPIII guidelines LDL/HDL Ratio 1.9 <3.3 Ratio LDL Cholesterol Patient History Test Date: 01/28/2025 LDL Results: 89 Units: mg/dL % Change: - P-Vitamin D 25-Hydroxy Reviewed date:01/30/2025 09:13:21 AM Interpretation:26.5 Performing Lab: Notes/Report: Test performed by [facility], [address] , [address], [place] [address] Luis Dickson MD, Systems Development Consultant CLIA: [id number] Vitamin D 25-Hydroxy 26.5 30.0-100.0 ng/mL Interpretation of Vitamin D 25 OH: < 20 ng/mL - Deficiency 20 - 29 ng/mL - Insufficiency 30 - 100 ng/mL - Sufficiency > 100 ng/mL - Super-therapeutic- toxicity may occur above this level. Clinical correlation required. REASON FOR VISIT lab draw Encounters Encounter Location Date Provider Diagnosis [facility] [address] [facility] [address] [place], [place] [id number] 01/28/2025 Uyen Stone Essential hypertensi on I10 ; Vitamin B12 deficiency E53.8 ; Vitamin D deficiency E55.9 ; Iron deficiency anemia, unspecified iron deficiency anemia type D50.9 and Mixed hyperlipidemia E78.2 Assessments Encounter Date Diagnosis (ICD Code) Assessment Notes Treatment Notes Treatment Clinical Notes Section Notes 01/28/2025 Essential hypertension (ICD-10 - I10) 01/28/2025 Vitamin B12 deficiency (ICD-10 - E53.8) 01/28/2025 Vitamin D deficiency (ICD-10 - E55.9) 01/28/2025 Iron deficiency anemia, unspecified iron deficiency anemia type (ICD-10 - D50.9) 01/28/2025 Mixed hyperlipidemia (ICD-10 - E78.2) Plan Of Treatment No Information Progress Notes * CYNTHIA JUDDOB: [birth year] (60 yo F)Acc No.[id number]:01/28/2025 Patient: KLEVER YANG Provider: SUSHMA Sandoval :1965 A ge:59 Y S ex:Female Date:01/28/2025 Address:[address] [place], [place] [id number] Pcp:Tony Hennessy Subjective: * Chief Complaints: * 1 . Lab draw. * Medical History: Objective: * Vitals: Assessment: * Assessment: 1. E ssential hypertension - I10 2 . V itamin B12 deficiency - E53.8 ? 3 . V itamin D deficiency - E55.9 4 . I reinaldo deficiency anemia, unspecified iron deficiency anemia type - D50.9 5 . M ixed hyperlipidemia - E78.2? Plan: * Treatment: Value Reference Range A /G Ratio 1.7 1.1-2.5 - * A lbumin 4.6 3.5-5.3 - g/dL * A lkaline Phosphatase 106 35-121 - IU/L * A LT (SGPT) 10 <5-47 - IU/L * A ST (SGOT) 16 <5-40 - IU/L * B ilirubin, Total 0.3 <0.2-1.2 - mg/dL * B UN 21 H 6-20 - mg/dL * C alcium 9.6 8.6-10.4 - mg/dL * C hloride 110 H 97-108 - mmol/L * C O2 22 22-32 - mmol/L * C reatinine 1.03 H 0.50-1.00 - mg/dL * G lucose 82 65-99 - mg/dL * P otassium 3.9 3.5-5.3 - mmol/L * S odium 147 H 135-145 - mmol/L * P rotein 7.3 6.0-8.3 - g/dL * e GFR by Creatinine 62 >59 - mL/min/1.73m2 * Mary Meadows 01/30/2025 09: 12:25 AM > see phone encounter 2.?Vitamin B12 deficiency?LAB: P-Vitamin B12 (Collection Date & Time - 01/28/2025 02:50 PM)?Normal* Value Reference Range V itamin B12 331 824-7673 - pg/mL * Mary Meadows 01/30/2025 09: 12:25 AM > see phone encounter 3.?Vitamin D deficiency?LAB: P-Vitamin D 25-Hydroxy (Collection Date & Time - 01/28/2025 02:50 PM)? 26.5* Value Reference Range V itamin D 25-Hydroxy 26.5 L 30.0-100.0 - ng/mL * Mary Meadows 01/30/2025 09: 12:25 AM > see phone encounter 4.?Iron deficiency anemia, unspecified iron deficiency anemia type?LAB: P-Ferritin (Collection Date & Time - 01/28/2025 02:50 PM)?Normal* Value Reference Range F erritin 133.0 13.0-301.0 - ng/mL * Mary Meadows 01/30/2025 09: 12:25 AM > see phone encounter ?LAB: P-Iron (Collection Date & Time - 01/28/2025 02:50 PM)?Normal* Value Reference Range I reinaldo 46 37-145 - ug/dL * Mary Meadows 01/30/2025 09: 12:25 AM > see phone encounter 5.?Mixed hyperlipidemia?LAB: P-Lipid Panel (Collection Date & Time - 01/28/2025 02:50 PM)?Normal* Value Reference Range C holesterol / HDL Ratio 3.43 0.00-4.44 - Ratio * C holesterol 158 <200 - mg/dL * H DL Cholesterol 46 >39 - mg/dL * L DL Cholesterol (Calculation) 89 <130 - mg/d L * L DL/HDL Ratio 1.9 <3.3 - Ratio * N on-HDL Cholesterol 112 <130 - mg/dL * T riglycerides 117 <150 - mg/dL * Mary Meadows 01/30/2025 09: 12:25 AM > see phone encounter * Labs: * L ab: CBC Fingerstick (in house) (Collection Date & Time - 02/07/2025) n ot performed * Procedure Codes: 3 6416 CAPILLARY BLOOD DRAW, 51765 CBC WITH AUTO DIFF * Images: Billing Information: * Visit Code: * Procedure Codes: 96133 CAPILLARY BLOOD DRAW. 01689 CBC WITH AUTO DIFF. * Electronic signature of SUSHMA Diallo on 09/17/2025 at 08:32 AM EST Sign off status: Pending * Provider: SUSHMA Sandoval Date: 0 01/28/2025 Generated for Sincere garcia/Danica/eTransmitting on: 1 11/17/2024 08:32 AM EST
--- OUTSIDE RECORDS SUMMARY | 2025-05-14 11:30 | XMS_ITS ---
Author Organization [facility] Address [address] [place] [id number] Care Team Providers Care Director Auto Name Role Phone Tony Hennessy Primary Care Provider [phone] Uyen Stone Unavailable [phone] Allergies Allergen (clinical drug ingredient) Drug/Non Drug Allergy documented on EMR Reaction Allergy Type Onset Date Status aspirin Aspirin Unknown Drug Allergy Active valsartan Diovan angioedema - see note 11/20/06 Drug Allergy Active ibuprofen Ibuprofen Unknown Drug Allergy Active codeine Codeine Unknown Drug Allergy Active Results Component Value Reference Range Notes CBC Fingerstick (in house) Reviewed date:05/15/2025 10:20:54 AM Interpretation: Performing Lab: Notes/Report: wbc 2.5 3.5 - 10 lym 17.6 15 - 50 mid 5.5 2 - 15 gran 76.9 35 - 80 rbc 4.20 3.5 - 5.5 hgb 12.7 11.5 - 16.5 hct 38.2 35 - 55 mcv 90.7 75 - 100 mch 30.3 25 - 35 mchc 33.3 31 - 38 plat 104 100 - 400 REASON FOR VISIT coughing ,congestion Medications Medication SIG (Take, Route, Frequency, Duration) Notes Start Date End Date Status Benzonatate 200 MG 1 capsule as needed Orally Three times a day, prn 05/14/2025 Active Ferrous Sulfate 325 (65 Fe) MG 1 tablet Orally every other day Active Vitamin B12 1000 MCG 1 tablet Orally Onc e a day; Duration: 30 day(s) Active Albuterol Sulfate HFA 108 (90 Base) MCG/ACT 1 puff as needed Inhalation every 4 hrs, prn 05/14/2025 Active Zithromax Z-Carlos 250 MG as directed Orally 05/14/20 25 Active Mounjaro 7.5 MG/0.5ML INJECT THE CONTENT S OF 1 PEN (7.5 MG / 0.5ML) SUBCUTANEOUSLY ONCE A WEEK; Duration: 28 Active Benicar HCT 20-12.5 MG 1 tablet Orally O nce a day; Duration: 90 days 01/01/2025 Active Vitamin D3 25 MCG (1000 UT) 3 tab Orally once a day 03/13/2019 Acti ve metFORMIN HCl ER 500 MG 1 tab(s) orally once daily; Duration: 90 days Active Mounjaro 7.5 MG/0.5ML 7.5 mg Subcutaneou s once a week Active Leflunomide 20 MG 1 tab(s) orally once a day; Duration: 30 day(s) Active Vital Signs Blood pressure systolic 122 mm Hg 05/14/20 25 Blood pressure diastolic 76 mm Hg 025 Heart Rate 88 /min 05/14/2025 Height 63 in 05/14/2025 Weight 155.8 lbs 05/14/2025 BMI 27.6 kg/m2 05/14/2025 Encounters Encounter Location Date Provider Diagnosis [facility] [address] [facility] [address] [place] [id number] 05/14/2025 Uyen Stone Acute URI J06.9 and Bronchitis J40 Assessments Encounter Date Diagnosis (ICD Code) Assessment Notes Treatment Notes Treatment Clinical Notes Section Notes 05/14/2025 Acute URI (ICD-10 - J06.9) 05/14/2025 Bronchitis (ICD-10 - J40) Plan Of Treatment Medication Medication Name Sig Start Date Stop Date Notes Benzonatate 200 MG 1 capsule as needed Orally Three times a day, prn 05/14/2025 Albuterol Sulfate HFA 108 (9 0 Base) MCG/ACT 1 puff as needed Inhalation every 4 hrs, prn 05/14/2025 Zithromax Z-Carlos 250 MG as directed Orally 05/14/2025 Next Appt Details Follow Up: prn, Reason: Progress Notes * CYNTHIA JUDDOB: [birth year] (60 yo F)Acc No.[id number]:05/14/2025 Progress Notes Patient: KLEVER YANG Provider: SUSHMA Sandoval :1965 A ge:59 Y S ex:Female Date:05/14/2025 Address:[address] [place] [address], [place], [id number] Pcp:Tony Hennessy Subjective: * Chief Complaints: * 1 . Coughing ,congestion. * HPI: E NT/respiratory: 59 year old female presents with c/o cough P t states this started Monday. Pt states cough started then congestion.. c/o nasal congestion. * ROS: D ERMATOLOGY: no R dayna. [...] Procedure: H ER- twisted left knee 04-25-2015, [facility]-lost voice 01/06. * Family History: F ather: 66 yrs, diagnosed with Cancer, Hypertension. M other: 61 yrs, diagnosed with Cancer, Hypertension, Diabetes. P aternal Grand Father: . P aternal [...] tab Orally once a day , Taking Mounjaro 7.5 MG/0.5ML Solution Auto-injector INJECT THE CONTENTS OF 1 PEN (7.5 MG / 0.5ML) SUBCUTANEOUSLY ONCE A WEEK , Taking Benicar HCT 20-12.5 MG Tablet 1 tablet Orally Once a day , Taking metFORMIN HCl ER 500 MG Tablet Extended Release 24 Hour 1 tab(s) orally once daily , Taking Mounjaro 7.5 MG/0.5ML Solution Auto-injector 7.5 mg Subcutaneous once a week , Medication List reviewed and reconciled with the patient * Allergies: C odeine, Aspirin, Ibuprofen, Diovan: angioedema - see note 11/20/06. Objective: * Vitals: W t: 155.8, Temp: 98.9, BP: 122/76, HR: 88, Nurse: pe, Ht: 63, BMI:27.6. * Examination: E NT/Respiratory: General Appearance: N AD. E ars: a uditory canals normal bilaterally, TM's WNL. N ose : t urbinates red, congested. S inuses : t clara maxillary sinuses bilaterally. O ral cavity : e rythema without exudate on pharynx. N sanket : n o cervical lymphadenopathy. H eart : R RR, normal S1 S2, no murmurs. L ungs:?expiratory wheezes, no rales. Assessment: * Assessment: 1. A linda LYON - J06.9 (Primary) 2 . B kenia - Taty40 Plan: * Treatment: Value Reference Range w bc 2.5 3.5 - 10 * l ym 17.6 15 - 50 * m id 5.5 2 - 15 * g ran 76.9 35 - 80 * r bc 4.20 3.5 - 5.5 * h gb 12.7 11.5 - 16.5 * h ct 38.2 35 - 55 * m cv 90.7 75 - 100 * m ch 30.3 25 - 35 * m chc 33.3 31 - 38 * p lat 104 100 - 400 * Patricia Ross 05/14/2025 0 4:42:15 PM EDT > Provider reviewed results while patient in office.Uyen Stone 05/15/2025 10:20:52 AM EDT > 2.?Bronchitis? Start Albuterol Sulfate HFA Aerosol Solution, 108 (90 Base) MCG/ACT, 1 puff as needed, Inhalation, every 4 hrs, prn, 1, Refills 0;?Start Zithromax Z-Carlos Tablet, 250 MG, as directed, Orally, 1, Refills 0.?? * Procedure Codes: 8 5025 CBC WITH AUTO DIFF, 10989 CAPILLARY BLOOD DRAW, 1036F TOBACCO NON-USER * Follow Up: p rn * Images: Billing Information: * Visit Code: 81354 Office Visit, Est Pt., Level 3. * Procedure Codes: 16414 CBC WITH AUTO DIFF. 26445 CAPILLARY BLOOD DRAW. 1036F TOBACCO NON-USER. * Electronic signature of SUSHMA Diallo on 09/17/2025 at 08:32 AM EST Sign off status: Pending * Provider: SUSHMA Sandoval Date: 0 05/14/2025 Generated for Sincere garcia/Danica/eTransmitting on: 1 11/17/2024 08:32 AM EST History and Physical Notes * HPI (History of Present Illness) Category Sub-Category Detail Notes Category Not es ENT/respiratory cough Pt states this s tarted Monday. Pt states cough started then congestion. nasal congestion Examination Category Sub-Category Detail Notes Category Not es ENT/Respiratory Oral cavity : erythema without exudate on pharynx Sinuses : tender maxillary sin uses bilaterally Ears: auditory canals norm al bilaterally, TM's WNL Neck : no cervical lymphade nopathy Heart : RRR, normal S1 S2, n o murmurs Lungs: expiratory wheezes, no rales General Appearance: NAD Nose : turbinates red, darline ested
--- OUTSIDE RECORDS SUMMARY | 2025-07-03 11:00 | XMS_ITS ---
[facility] Organization [facility] Address [address] [place] [id number] Care Team Providers Care Resist Coater Developer Name Role Phone Tony Hennessy Primary Care Provider Uyen Stone [phone] Allergies Allergen (clinical drug ingredient) Drug/Non Drug Allergy documented on EMR Reaction Allergy Type Onset Date Status aspirin Aspirin Unknown Drug Allergy Active valsartan Diovan angioedema - see note 11/20/06 Drug Allergy Active ibuprofen Ibuprofen Unknown Drug Allergy Active codeine Codeine Unknown Drug Allergy Active Results Component Value Reference Range Notes Glycohemoglobin A1c (in hous e) Reviewed date:07/04/2025 11:42:30 AM Interpretation:4.9% Normal Performing Lab: Notes/Report: 4.9% Normal glycohemoglobin 4.9% 5 - 6.5 % P-Vitamin B12 Reviewed date:07/04/2025 11:42:30 AM Interpretation:Normal Performing Lab: Notes/Report: Test performed by [facility] [employer] [place] , [place] [address] Luis Dickson MD, Cornetist CLIA: [id number] Vitamin B12 589 899-9639 pg/mL P-Comprehensive Metabolic Pa nehemias (CMP) Reviewed date:07/04/2025 11:42:30 AM Interpretation:Normal Performing Lab: Notes/Report: Test performed by [facility] [address] [place], [place] [address] [address], [place] [address] Luis Dickson MD, Cornetist CLIA: [id number] Sodium 140 135-145 mmol/L Potassium 4.0 3.5-5.3 mmol/L Chloride 105 97-108 mmol/L CO2 24 20-32 mmol/L Glucose 85 65-99 mg/dL BUN 21 6-20 mg/dL Creatinine 0.96 0.50-1.00 mg/dL Calcium 9.4 8.6-10.4 mg/dL eGFR by Creatinine 68 >59 mL/min/1.73m2 Protein 7.1 6.0-8.3 g/dL Albumin 4.6 3.5-5.3 g/dL Alkaline Phosphatase 106 35-121 IU/L ALT (SGPT) 13 <5-47 IU/L AST (SGOT) 15 <5-40 IU/L Bilirubin, Total 0.3 <0.2-1.2 mg/dL A/G Ratio 1.8 1.1-2.5 P-Ferritin Reviewed date:07/04/2025 11:42:30 AM Interpretation:Normal Performing Lab: Notes/Report: Test performed by [facility] [address] [place] [address] , [facility] [place] [id number] Luis Dickson MD, Cornetist CLIA: [id number] Ferritin 147.0 13.0-301.0 ng/mL P-Iron Reviewed date:07/04/2025 11:42:30 AM Interpretation:Normal Performing Lab: Notes/Report: Test performed by [facility] [address] [place] [address] , [place] [address] Luis Dickson MD, Cornetist CLIA: [id number] Iron 48 37-145 ug/dL P-Lipid Panel Reviewed date:07/04/2025 11:42:30 AM Interpretation:Normal Performing Lab: Notes/Report: Test performed by [facility] [address] [place] [address] , [address], [place] [address] Luis Dickson MD, Cornetist CLIA: [id number] Cholesterol 147 <200 mg/dL Triglycerides 136 <150 mg/dL HDL Cholesterol 46 >39 mg/dL Cholesterol / HDL Ratio 3.20 0.00-4.44 Ratio Non-HDL Cholesterol 101 <130 mg/dL LDL Cholesterol (Calculation) 74 <130 mg/dL LDL Cholesterol Levels* Less than 100 mg/dL Optimal 100 to 129 mg/dL Near Optimal/ Above Optimal 130 to 159 mg/dL Borderline High 160 to 189 mg/dL High 190 mg/dL and above Very High * Categories as recommended by the 2004 ATPIII guidelines LDL/HDL Ratio 1.6 <3.3 Ratio LDL Cholesterol Patient History Test Date: 01/28/2025 LDL Results: 89 Units: mg/dL % Change: - Test Date: 07/03/2025 LDL Results: 74 Units: mg/dL % Change: -16% P-Vitamin D 25-Hydroxy Reviewed date:07/04/2025 11:42:30 AM Interpretation:30.1 Performing Lab: Notes/Report: Test performed by [facility] [address] [place] [address] , [place] [address] Luis Dickson MD, Cornetist CLIA: [id number] Vitamin D 25-Hydroxy 30.1 30.0-100.0 ng/mL Interpretation of Vitamin D 25 OH: < 20 ng/mL - Deficiency 20 - 29 ng/mL - Insufficiency 30 - 100 ng/mL - Sufficiency > 100 ng/mL - Super-therapeutic- toxicity may occur above this level. Clinical correlation required. REASON FOR VISIT 6 month check Medications Medication SIG (Take, Route, Frequency, Duration) Notes Start Date End Date Status Vitamin D3 25 MCG (1000 UT) 3 tab Orally once a day 03/13/2019 Acti ve Leflunomide 20 MG 1 tab(s) orally once a day; Duration: 30 day(s) Active Vitamin B12 1000 MCG 1 tablet Orally Onc e a day; Duration: 30 day(s) Active Ferrous Sulfate 325 (65 Fe) MG 1 tablet Orally every other day Active Mounjaro 7.5 MG/0.5ML INJECT THE CONTENT S OF 1 PEN (7.5 MG / 0.5ML) SUBCUTANEOUSLY ONCE A WEEK; Duration: 28 Active Mounjaro 10 MG/0.5ML 10mg Subcutaneous o nce a week Active Benicar HCT 20-12.5 MG 1/2 tab Orally Once a day Active metFORMIN HCl ER 500 MG 1 tab(s) orally once daily; Duration: 90 days Active Vital Signs Blood pressure systolic 118 mm Hg 07/03/20 25 Blood pressure diastolic 68 mm Hg 025 Heart Rate 81 /min 07/03/2025 Height 63 in 07/03/2025 Weight 153.6 lbs 07/03/2025 BMI 27.21 kg/m2 07/03/2025 Encounters Encounter Location Date Provider Diagnosis [facility] [address] [place], [place] [id number] 07/03/2025 Uyen Stone Essential hypertensi on I10 ; Vitamin D deficiency E55.9 ; Vitamin B12 deficiency E53.8 ; Iron deficiency anemia, unspecified iron deficiency anemia type D50.9 ; Mixed hyperlipidemia E78.2 ; Type 2 diabetes mellitus without complication, unspecified whether oil heaterman insulin use E11.9 and BMI 27.0-27.9,adult Z68.27 Assessments Encounter Date Diagnosis (ICD Code) Assessment Notes Treatment Notes Treatment Clinical Notes Section Notes 07/03/2025 Essential hypertension (ICD-10 - I10) 07/03/2025 Vitamin D deficiency (ICD-10 - E55.9) 07/03/2025 Vitamin B12 deficiency (ICD-10 - E53.8) 07/03/2025 Iron deficiency anemia, unspecified iron deficiency anemia type (ICD-10 - D50.9) 07/03/2025 Mixed hyperlipidemia (ICD-10 - E78.2) 07/03/2025 Type 2 diabetes mellitus without complication, unspecified whether usp insulin use (ICD-10 - E11.9) 07/03/2025 BMI 27.0-27.9,adult (ICD-10 - Z68.27) Plan Of Treatment Medication Medication Name Sig Start Date Stop Date Notes Mounjaro 10 MG/0.5ML 10mg Subcutaneous once a week Benicar HCT 20-12.5 MG 1/2 tab Orally Once a day Next Appt Details Follow Up: via phone to repo rt test results, Reason: Progress Notes * CYNTHIA JUDDOB: [birth year] (60 yo F)Acc No.[id number]:07/03/2025 Progress Notes Patient: KLEVER YANG Provider: SUSHMA Sandoval :1965 A ge:59 Y S ex:Female Date:07/03/2025 Address:[address] [place] [address] [id number] Pcp:Tony Hennessy Subjective: * Chief Complaints: * 1 . 6 month check. * HPI: H PI: 59 year old female presents with c/o Patient is here today for?Pt is here today for a 6 month check up. Pt sts she is doing well and has no concerns at this time. Pt sts that her BP has been doing really well since changing her BP medication dosage. Pt sts she does need refills on her medications as well today. * ROS: D ERMATOLOGY: no R dayna. [...] Procedure: H ER- twisted left knee 04-25-2015, [facility]-lost voice 01/06. * Family History: [...] , Taking Benicar HCT 20-12.5 MG Tablet 1/2 tab Orally Once a day , Taking metFORMIN HCl ER 500 MG Tablet Extended Release 24 Hour 1 tab(s) orally once daily , Medication List reviewed and reconciled with the patient * Allergies: C odeine, Aspirin, Ibuprofen, Diovan: angioedema - see note 11/20/06. Objective: * Vitals: W t: 153.6, Temp: 98.7, BP: 118/68, HR: 81, O2 Sat: 96% on RA, Nurse: marco, Ht: 63, BMI:27.21. * Examination: G eneral Examination: General Appearance: N AD. H EENT: u nremarkable.?Oral cavity: n o lesions, mucosa moist and WNL, no erythema. N sanket: s upple, no lymphadenopathy. C hest: n ormal shape and expansion. H eart: R SR. L ungs: c lear to auscultation. A bdomen: b owel sounds present, soft, nontender. N eurologic Exam:?Intact, gait normal. S kin: n ormal, no [...] 2 diabetes mellitus without complication, unspecified whether oil heaterman insulin use - E11.9 7 . B OK 27.0-27.9,adult - Z68.27 ? Plan: * Treatment: Value Reference Range A /G Ratio 1.8 1.1-2.5 - * A lbumin 4.6 3.5-5.3 - g/dL * A lkaline Phosphatase 106 35-121 - IU/L * A LT (SGPT) 13 <5-47 - IU/L * A ST (SGOT) 15 <5-40 - IU/L * B ilirubin, Total 0.3 <0.2-1.2 - mg/dL * B UN 21 H 6-20 - mg/dL * C alcium 9.4 8.6-10.4 - mg/dL * C hloride 105 97-108 - mmol/L * C O2 24 20-32 - mmol/L * C reatinine 0.96 0.50-1.00 - mg/dL * G lucose 85 65-99 - mg/dL * P otassium 4.0 3.5-5.3 - mmol/L * S odium 140 135-145 - mmol/L * P rotein 7.1 6.0-8.3 - g/dL * e GFR by Creatinine 68 >59 - mL/min/1.73m2 * Mary Meadows 07/04/2025 11: 42:20 AM EDT > See phone encounter 2.?Vitamin D deficiency?LAB: P-Vitamin D 25-Hydroxy (Collection Date & Time - 07/03/2025 02:50 PM)? 30.1* Value Reference Range V itamin D 25-Hydroxy 30.1 30.0-100.0 - ng/mL * Mary Meadows 07/04/2025 11: 42:20 AM EDT > See phone encounter 3.?Vitamin B12 deficiency?LAB: P-Vitamin B12 (Collection Date & Time - 07/03/2025 02:50 PM)?Normal* Value Reference Range V itamin B12 836 847-1112 - pg/mL * Mary Meadows 07/04/2025 11: 42:20 AM EDT > See phone encounter 4.?Iron deficiency anemia, unspecified iron deficiency anemia type?LAB: P-Ferritin (Collection Date & Time - 07/03/2025 02:50 PM)?Normal* Value Reference Range F erritin 147.0 13.0-301.0 - ng/mL * Mary Meadows 07/04/2025 11: 42:20 AM EDT > See phone encounter ?LAB: P-Iron (Collection Date & Time - 07/03/2025 02:50 PM)?Normal* Value Reference Range I reinaldo 48 37-145 - ug/dL * Mary Meadows 07/04/2025 11: 42:20 AM EDT > See phone encounter 5.?Mixed hyperlipidemia?LAB: P-Lipid Panel (Collection Date & Time - 07/03/2025 02:50 PM)?Normal* Value Reference Range C holesterol / HDL Ratio 3.20 0.00-4.44 - Ratio * C holesterol 147 <200 - mg/dL * H DL Cholesterol 46 >39 - mg/dL * L DL Cholesterol (Calculation) 74 <130 - mg/d L * L DL/HDL Ratio 1.6 <3.3 - Ratio * N on-HDL Cholesterol 101 <130 - mg/dL * T riglycerides 136 <150 - mg/dL * Mary Meadows 07/04/2025 11: 42:20 AM EDT > See phone encounter 6.?Type 2 diabetes mellitus without complication, unspecified whether usp insulin use? Increase Mounjaro Solution Auto-injector, 10 MG/0.5ML, 10mg, Subcutaneous, once a week, 4, Refills 2.?LAB: Glycohemoglobin A1c (in house) (Collection Date & Time - 07/03/2025)? 4.9% Normal* Value Reference Range g lycohemoglobin 4.9% 5 - 6.5 % * Rea Ayala 07/03/2025 04:5 1:30 PM EDT > Mary Meadows 07/04/2025 11:42:20 AM EDT > See phone encounter * Procedure Codes: 8 3036 GLYCATED HEMOGLOBIN TEST, Modifiers: QW , 3044F HG A1C LEVEL LT 7.0%, 1036F TOBACCO NON-USER, 3074F SYST BP LT 130 MM HG, 3078F DIAST BP < 80 MM HG * Follow Up: v ia phone to report test results * Images: Billing Information: * Visit Code: 41639 Office Visit, Est Pt., Level 4. * Procedure Codes: 17687 GLYCATED HEMOGLOBIN TEST. Modifiers: QW 3044F HG A1C LEVEL LT 7.0%. 1036F TOBACCO NON-USER. 3074F SYST BP LT 130 MM HG. 3078F DIAST BP < 80 MM HG. * Electronic signature of SUSHMA Diallo on 09/17/2025 at 08:33 AM EST Sign off status: Pending * Provider: SUSHMA Sandoval Date: 0 07/03/2025 Generated for Sincere garcia/Danica/eTransmitting on: 1 11/17/2024 08:33 AM EST History and Physical Notes * HPI (History of Present Illness) Category Sub-Category Detail Notes Category Not es HPI Patient is here today for Pt is here today for a 6 month check up. Pt sts she is doing well and has no concerns at this time. Pt sts that her BP has been doing really well since changing her BP medication dosage. Pt sts she does need refills on her medications as well today Examination Category Sub-Category Detail Notes Category Not es General Examination HEENT: unremarkable Heart: RSR Lungs: clear to auscultatio n Abdomen: bowel sounds present , soft, nontender Extremities: no leg edema General Appearance: NAD Skin: normal, no rash Neurologic Exam: Intact, gait normal Neck: supple, no lymphaden opathy Oral cavity: no lesions, mucosa m oist and WNL, no erythema Peripheral pulses: normal (2+) bilatera lly Chest: normal shape and exp ansion
--- OUTSIDE RECORDS SUMMARY | 2025-09-17 08:32 | XMS_ITS | Patient Health Record ---
Author Organization [facility] Address [address] [place] [id number] Care Team Providers Care Roof Service Technician Name Role Phone Tony Hennessy Primary Care Provider Uyen Stone Unavailable [phone] Allergies Allergen (clinical drug ingredient) Drug/Non Drug [...] 100 - 400 P-Vitamin D 25-Hydroxy Reviewed date:01/30/2025 09:13:21 AM Interpretation:26.5 Performing Lab: Notes/Report: Test performed by [facility], [facility] [employer] [address] [place] [address] , [address], [place] [address] Luis Dickson MD, [employer] CLIA: [id number] Vitamin D 25-Hydroxy 26.5 30.0-100.0 ng/mL Interpretation of Vitamin D 25 OH: < 20 ng/mL - Deficiency 20 - 29 ng/mL - Insufficiency 30 - 100 ng/mL - Sufficiency > 100 ng/mL - Super-therapeutic- toxicity may occur above this level. Clinical correlation required. P-Lipid Panel Reviewed date:01/30/2025 09:13:21 AM Interpretation:Normal Performing Lab: Notes/Report: Test performed by [facility], [facility] [address] [facility] , [address], [place] [address] Luis Dickson MD, [employer] CLIA: [id number] Cholesterol 158 <200 mg/dL Triglycerides 117 <150 [...] Results: 89 Units: mg/dL % Change: - P-Iron Reviewed date:01/30/2025 09:13:21 AM Interpretation:Normal Performing Lab: Notes/Report: Test performed by [facility] , [address], [place] [address] Luis Dickson MD, [employer] CLIA: [id number] Iron 46 37-145 ug/dL P-Ferritin Reviewed date:01/30/2025 09:13:21 AM Interpretation:Normal Performing Lab: Notes/Report: [facility] , [address], [place] [address] Luis Dickson MD, [employer] CLIA: [id number] Ferritin 133.0 13.0-301.0 ng/mL P-Comprehensive Metabolic Pa nehemias (CMP) Reviewed date:01/30/2025 09:13:21 AM Interpretation:Na 147, Chl 110, BUN 21, Creat 1.03 Performing Lab: Notes/Report: Test performed by [facility] [address] , [address], [place] [address] Luis Dickson MD, [employer] CLIA: [id number] Sodium 147 135-145 mmol/L Potassium 3.9 3.5-5.3 [...] 0.3 <0.2-1.2 mg/dL A/G Ratio 1.7 1.1-2.5 P-Vitamin B12 Reviewed date:01/30/2025 09:13:21 AM Interpretation:Normal Performing Lab: Notes/Report: Test performed by [facility] [address] , [address], [place] [address] Luis Dickson MD, [employer] CLIA: [id number] Vitamin B12 357 970-5267 pg/mL CBC Fingerstick (in house) Reviewed date:02/13/2025 12:37:24 PM Interpretation:not performed Performing Lab: Notes/Report: not performed P-Vitamin D 25-Hydroxy Reviewed date:10/09/2024 03:49:50 PM Interpretation: Performing Lab: Notes/Report: Test performed by [facility] [address] , [address], [place] [address] Luis Dickson MD, [employer] CLIA: [id number] Vitamin D 25-Hydroxy 13.3 30.0-100.0 ng/mL Interpretation of Vitamin D 25 OH: < 20 ng/mL - Deficiency 20 - 29 ng/mL - Insufficiency 30 - 100 ng/mL - Sufficiency > 100 ng/mL - Super-therapeutic- toxicity may occur above this level. Clinical correlation required. P-Microalbumin/Creatinine, R andom Urine Sample Reviewed date:10/09/2024 03:49:50 PM Interpretation: Performing Lab: Notes/Report: Test performed by [facility] [address] , [address], [place] [address] Luis Dickson MD, [employer] CLIA: [id number] Albumin/Creatinine Ratio, Urine 12 0-30 ug/m g Microalbumin, Urine, Random 0.9 Creatinine, Urine 72.8 P-Iron Reviewed date:10/09/2024 03:49:50 PM Interpretation: Performing Lab: Notes/Report: Test performed by [facility] [address] , [address], [place] [address] Luis Dickson MD, [employer] CLIA: [id number] Iron 38 37-145 ug/dL P-Ferritin Reviewed date:10/09/2024 03:49:50 PM Interpretation: Performing Lab: Notes/Report: Test performed by [facility] [address] , [address], [place] [id number] Luis Dickson MD, [employer] CLIA: [id number] Ferritin 154.0 13.0-301.0 ng/mL P-Comprehensive Metabolic Pa nehemias (CMP) Reviewed date:10/09/2024 03:49:50 PM Interpretation: Performing Lab: Notes/Report: Test performed by [facility] [address] [place] [address] , [address], [place] [address] Luis Dickson MD, [employer] CLIA: [id number] Sodium 144 135-145 mmol/L Potassium 4.2 3.5-5.3 [...] Interpretation: Performing Lab: Notes/Report: Test performed by [facility] [address] [place] [address] , [address], [place] [address] Luis Dickson MD, [employer] CLIA: [id number] Vitamin B12 374 453-8997 pg/mL Glycohemoglobin A1c (in hous e) Reviewed [...] Interpretation:pt declined Performing Lab: Notes/Report: pt declined Mammogram Reviewed date:06/16/2025 12:45:08 PM Interpretation:Negative Performing Lab: Notes/Report: Negative result Negative Glycohemoglobin A1c (in hous e) Reviewed date:07/04/2025 11:42:30 AM Interpretation:4.9% Normal Performing Lab: Notes/Report: 4.9% Normal glycohemoglobin 4.9% 5 - 6.5 % P-Vitamin B12 Reviewed date:07/04/2025 11:42:30 AM Interpretation:Normal Performing Lab: Notes/Report: Test performed by [facility] [address] [place], [place] [address] , [address], [place] [id number] Lusi Dickson MD, [employer] CLIA: [id number] Vitamin B12 796 078-2042 pg/mL P-Comprehensive Metabolic Pa nehemias (CMP) Reviewed date:07/04/2025 11:42:30 AM Interpretation:Normal Performing Lab: Notes/Report: Test performed by [facility] [address] [place] [address] [address], [address], [place] [address] Luis Dickson MD, [employer] CLIA: [id number] Sodium 140 135-145 mmol/L Potassium 4.0 3.5-5.3 [...] Interpretation:Normal Performing Lab: Notes/Report: Test performed by [facility] [address] [place] [address] , [place] [address] Luis Dickson MD, [employer] CLIA: [id number] Ferritin 147.0 13.0-301.0 ng/mL P-Iron Reviewed date:07/04/2025 11:42:30 AM Interpretation:Normal Performing Lab: Notes/Report: Test performed by [facility] [address] , [address], [place] [address] Luis Dickson MD, [employer] CLIA: [id number] Iron 48 37-145 ug/dL P-Lipid Panel Reviewed date:07/04/2025 11:42:30 AM Interpretation:Normal Performing Lab: Notes/Report: Test performed by [facility] [address] [place] [address] , [address], [place] [address] Luis Dickson MD, [employer] CLIA: [id number] Cholesterol 147 <200 mg/dL Triglycerides 136 <150 [...] Interpretation:30.1 Performing Lab: Notes/Report: Test performed by [facility] [address] [place] [address] , [address], [place] [address] Luis Dickson MD, [employer] CLIA: [id number] Vitamin D 25-Hydroxy 30.1 30.0-100.0 ng/mL Interpretation [...] tablet Orally every other day Active Mounjaro 10 MG/0.5ML 10mg Subcutaneous o nce a week Active Benicar HCT 20-12.5 MG 1/2 tab Orally Once a day Active metFORMIN HCl ER 500 MG 1 tab(s) orally once daily; Duration: 90 days Active Mounjaro 7.5 MG/0.5ML INJECT THE CONTENT S OF 1 PEN (7.5 MG / 0.5ML) SUBCUTANEOUSLY ONCE A WEEK; Duration: 28 Active Immunizations Vaccine Route Administration Date Status Comme nts COVID 19 Tia Unknown 01/27/2021 Administered Tetanus Tdap-Adacel (over 7yrs) IM Intramuscular 10/04/2018 Administered Problems Problem Type SNOMED Code ICD Code Onset Dates Problem Status W/U Status Risk Notes Problem Essential hypertension (67427406) Essential (primary) hypertension (I10) Active confirmed Problem Vitamin D deficiency (52219390) Vitamin D deficiency (E55.9) Active confirmed Problem Essential hypertension (58622290) Essential hypertension (I10) Active confirmed Problem Environmental allergy (269945547) Environmental allergies (Z91.09) Active confirmed Problem Mixed hyperlipidemia (311154524) Mixed hyperlipidemia (E78.2) Active confirmed Problem Chronic laryngitis (25501108) Chronic laryngitis (J37.0) Active confirmed Problem Localized, primary osteoarthritis of the hand (161957608) Primary osteoarthritis, right hand (M19.041) Active confirmed Problem Iron deficiency anemia (79272355) Iron deficiency anemia, unspecified iron deficiency anemia type (D50.9) Active confirmed Problem Osteoarthritis of knee (616411463) Primary osteoarthritis of right knee (M17.11) Active confirmed Problem Type II diabetes mellitus without complication (974527157) Type 2 diabetes mellitus without complication, without long-term current use of insulin (E11.9) Active confirmed Problem Family history of coronary artery disease (706005385) Family history of coronary artery disease (Z82.49) Active confirmed Problem Artificial knee joint present (386497025610) Status post right knee replacement (Z96.651) Active confirmed Problem Localized, primary osteoarthritis of the hand (672442472) Primary osteoarthritis of left hand (M19.042) Active confirmed Problem Type II diabetes mellitus without complication (537662899) Type 2 diabetes mellitus without complication, unspecified whether exterminator insulin use (E11.9) Active confirmed Problem Artificial knee joint present (470802006865) Status post total knee replacement, right (Z96.651) Active confirmed Vital Signs Heart Rate 81 /min 07/03/2025 Blood pressure diastolic 68 mm Hg 07/03/2025 Height 63 in 07/03/2025 Blood pressure systolic 118 mm Hg 07/03/2025 Weight 153.6 lbs 07/03/2025 BMI 27.21 kg/m2 07/03/2025 Encounters Encounter Location Date Provider Diagnosis [place] [address] [id number] 10/03/2024 Uyen Crowdy Essential hypertensi on I10 ; Vitamin D deficiency E55.9 ; Vitamin B12 deficiency E53.8 ; Iron deficiency anemia, unspecified iron deficiency anemia type D50.9 ; Mixed hyperlipidemia E78.2 and Type 2 diabetes mellitus without complication, unspecified whether snf insulin use E11.9 [facility] [address] [place] [id number] 01/01/2025 Uyen Crowdy Essential hypertensi on I10 ; Vitamin D deficiency E55.9 ; Vitamin B12 deficiency E53.8 ; Iron deficiency anemia, unspecified iron deficiency anemia type D50.9 ; Mixed hyperlipidemia E78.2 ; Type 2 diabetes mellitus without complication, unspecified whether snf insulin use E11. and Osteoporosis screening Z13.820 [facility] [address] [place], [place] [id number] 01/28/2025 Uyen Crowdy Essential hypertensi on I10 ; Vitamin B12 deficiency E53.8 ; Vitamin D deficiency E55.9 ; Iron deficiency anemia, unspecified iron deficiency anemia type D50.9 and Mixed hyperlipidemia E78.2 [facility] [address] [place], [place] [id number] 05/14/2025 Uyenanthony Stone Acute URI J06.9 and Bronchitis J40 [facility] [address] [place], [place] [id number] 07/03/2025 Uyen Chase Essential hypertensi on I10 ; Vitamin D deficiency E55.9 ; Vitamin B12 deficiency E53.8 ; Iron deficiency anemia, unspecified iron deficiency anemia type D50.9 ; Mixed hyperlipidemia E78.2 ; Type 2 diabetes mellitus without complication, unspecified whether snf insulin use E11.9 and BMI 27.0-27.9,adult Z68.27 [facility] [address] [place] [id number] 10/09/2024 Uyen Stone [facility] [address] [place], [place] [id number] 01/09/2025 Uyen Chase Essential hypertensi on I10 ; Vitamin D deficiency E55.9 ; Iron deficiency anemia, unspecified iron deficiency anemia type D50.9 ; Mixed hyperlipidemia E78.2 and Vitamin B12 deficiency E53.8 [facility] [address] [facility] [address] [place], [place] [id number] 01/23/2025 Uyen Stone [facility] [address] [place], [place] [id number] 01/24/2025 Tony Hennessy [facility] [address] [facility] [address] [place], [place] [id number] 01/30/2025 Uyen Stone [facility] [address] [place] [id number] 05/27/2025 Tony Hennessy Encounter for screen ing for malignant neoplasm of breast Z12.31 and Encounter for screening colonoscopy Z12.11 [facility] [address] [place] [id number] 07/04/2025 Uyen Stone Assessments Encounter Date Diagnosis (ICD Code) Assessment Notes Treatment Notes Treatment Clinical Notes Section Notes 10/03/2024 Essential hypertension (ICD-10 - I10) 10/03/2024 Vitamin D deficiency (ICD-10 - E55.9) 01/01/2025 Essential hypertension (ICD-10 - I10) 01/01/2025 Vitamin D deficiency (ICD-10 - E55.9) 01/09/2025 Essential hypertension (ICD-10 - I10) 01/28/2025 Essential hypertension (ICD-10 - I10) 05/14/2025 Acute URI (ICD-10 - J06.9) 05/14/2025 Bronchitis (ICD-10 - J40) 05/27/2025 Encounter for screening for malignant neoplasm of breast (ICD-10 - Z12.31) 05/27/2025 Encounter for screening colonoscopy (ICD-10 - Z12.11) 07/03/2025 Essential hypertension (ICD-10 - I10) 07/03/2025 Vitamin D deficiency (ICD-10 - E55.9) 07/03/2025 Vitamin B12 deficiency (ICD-10 - E53.8) 01/28/2025 Vitamin B12 deficiency (ICD-10 - E53.8) [...] 01/28/2025 Vitamin D deficiency (ICD-10 - E55.9) 07/03/2025 Iron deficiency anemia, unspecified iron deficiency anemia type (ICD-10 - D50.9) 07/03/2025 Mixed hyperlipidemia (ICD-10 - E78.2) 01/28/2025 Iron deficiency anemia, unspecified iron deficiency anemia type (ICD-10 - D50.9) 01/09/2025 Mixed hyperlipidemia (ICD-10 - E78.2) 01/01/2025 Mixed hyperlipidemia (ICD-10 - E78.2) 10/03/2024 Mixed hyperlipidemia (ICD-10 - E78.2) 10/03/2024 Type 2 diabetes mellitus without complication, unspecified whether snf insulin use (ICD-10 - E11.9) 01/01/2025 Type 2 diabetes mellitus without complication, unspecified whether snf insulin use (ICD-10 - E11.9) 01/09/2025 Vitamin B12 deficiency (ICD-10 - E53.8) 01/28/2025 Mixed hyperlipidemia (ICD-10 - E78.2) 07/03/2025 Type 2 diabetes mellitus without complication, unspecified whether snf insulin use (ICD-10 - E11.9) 07/03/2025 BMI 27.0-27.9,adult (ICD-10 - Z68.27) 01/01/2025 Osteoporosis screening (ICD-10 - Z13.820) Plan Of Treatment Pending Test Test Name Order Date colonoscopy 05/27/2025 H-Lipid Panel 01/09/2025 H-CMP 01/09/2025 H-VITAMIN B12 01/09/2025 H-Ferritin 01/09/2025 H-Iron 01/09/2025 P-Vitamin B12 01/01/2025 P-Comprehensive Metabolic Panel (CMP) P-Ferritin 01/01/2025 P-Iron 01/01/2025 P-Lipid Panel 01/01/2025 P-Vitamin D 25-Hydroxy 01/01/2025 H-Vitamin D 1,25 01/09/2025 Insurance Providers Payer Name Payer Address Payer Phone Subscriber Number Group Number Insured Name Patient Relationship to Insured Coverage Start Date Coverage End Date [facility] [address] [place] [address] [id number] KLEVER JUDD Self - patient is the insured Medications Administered Medication Instructions Date of Administration Dosage Notes Vistaril 50 mg 04/04/2007 Dexamethasone 10/18/2005 1 mL Dexamethasone 11/20/2006 1 mL Medical (General) History Medical History History ICD Code HBP Torn medial meniscus right knee Laryngeal polyps Surgical History Surgery Date(Month/Year) hysterectomy vaginal tonsillectomy Gallbladder removal of laryngeal polyps/ Suraj marcano total rt knee replacement 08/01/23 Hospitalization History Reason Date(Month/Year) UTC-lost voice 01/06 [facility] ER- twisted left knee 04-25-2015
--- OUTSIDE RECORDS SUMMARY | 2025-09-17 08:34 | XMS_ITS | Clinical Summary ---
[facility] Address [address] [place] [address] Care Team Providers Care Peer Support Specialist Name Role Phone Provider, No Known Primary [...] or training? Not on file Preferred Language Congolese 06/20/2024 Comments No Sex and Gender Information [...] Annual Gynecologic Pelvic and Breast Exam 1965 MAMMOGRAM 2005 COLOGUARD 2010 COLON CANCER SCREENING 5 YEAR SIGMOIDOSCOPY 2010 COLONOSCOPY 2010 [address] CANCER SCREENING 2010 CT COLONOGRAPHY 2010 FECAL OCCULT BLOOD TEST 2010 FIT Testing (1 year) 2010 Pneumococcal Vaccine 50+ (1 of 1 - PCV) 2015 ZOSTER VACCINE (1 of 2) 2015 ANNUAL PHYSICAL 06/18/2024 HEPATITIS C SCREENING 06/18/2024 INFLUENZA VACCINE 05/23/2025 TDAP/TD VACCINES (2 - Td or Tdap) 10/04/2028 018 HEMOGLOBIN A1C Discontinued 06/20/2024 Medical Devices Implanted Type Area Retail Loan Officer Device Identifier Shelf Expiration Date Model / Serial / Lot Dev Contrl Tiss Stratafix Spiral Mncryl Pls Ps 3/0 30cm Ud - [id number] Implanted:Qty : 1 on 07/04/2024 by Dru Nice MD at [facility] Implant Left: Knee [employer] 06/22/2025 [id number] / / [id number] Dev Wnd/Cls Contrl Tiss Stratafix Symm Pds Pls Ctx 60cm Amanda - [id number] Implanted:Qty : 1 on 07/04/2024 by Dru Nice MD at [facility] Implant Left: Knee [employer] Taty AND J 02/19/2026 [id number] / / [id number] Cmt Bone Palacos R Hi/Visc 1x40 - [id number] Implanted:Qty : 2 on 07/04/2024 by Dru Nice MD at [facility] Implant Left: Knee [employer] 09/21/2028 [id number] / / [id number] Base Tib/Kn Gen2 Nonpor Ti Sz3 Lt - [id number] Implanted:Qty : 1 on 07/04/2024 by Dru Nice MD at [facility] Implant Left: Knee ROSARIO AND NEPHEW 01/10/2034 [id number] / / [id number] Pat Gen2 Resrf 29mm - [id number] Implanted:Qty : 1 on 07/04/2024 by Dru Nice MD at [facility] Implant Left: Knee [employer] NEPHEW 05/03/2033 [id number] / / [id number] Comp Fem Legion Oxinium Ps Nrw Sz5n Lt - [id number] Implanted:Qty : 1 on 07/04/2024 by Dru Nice MD at [facility] Implant Left: Knee [employer] NEPHEW 03/09/2034 [id number] / / [id number] Insrt Art/Kn Legion Ps Hf Xlpe Sz3to4 9mm - [id number] Implanted:Qty : 1 on 07/04/2024 by Dru Nice MD at [facility] Implant Left: Knee [employer] NEPHEW 12/20/2033 [id number] / / [id number] Totl Kn Estuardo Rosario Nephew - [id number] Implanted:Qty : 1 on 07/04/2024 by Dru Nice MD at [facility] Implant Left: Knee ROSARIO [employer] NEPHEW CAPKNEETOTAL SN2 / / Procedures Procedure Name Priority Date/Time Associated Diagnosis Comments HEMOGLOBIN A1C Routine 06/20/2024 8:31 AM EDT from Last 3 Months or Most Recently Relevant to Health Maintenance Results * (ABNORMAL) Hemoglobin A1c (06/20/2024 8:31 AM EDT) Hemoglobin A1C 4.70(L) 4.80 - 5.60 % 06/20/2024 9:10 AM EDT [facility] Blood Venipuncture / Unknown 06/20/2024 8:31 AM EDT 06/20/2024 8:48 AM EDT Narrative [facility] - 06/20/2024 9:10 AM EDT Hemoglobin A1C Ranges: Increased Risk for Diabetes 5.7% to 6.4% Diabetes >= 6.5% Diabetic Goal < 7.0% Dru Nice MD LAB BLOOD ORDERABLES F inal Result [facility]
[address] [place] [address], from Last 3 Months or Most Recently Relevant to Health Maintenance Insurance Advance Directives * CPR (Attempt to Resuscitate) (Latest Code Status on File) Date Activated Date Inactivated Comments 07/04/2024 2:00 PM 07/05/2024 2:48 AM Question Answer Comments Code Status (Patient has no pulse and is not breathing): CPR (Attempt to Resuscitate) Medical Interventions (Patie nt has pulse or is breathing): Full Support Level Of Support Discussed With: Patient Care Teams Peer Support Specialist Relationship Specialty Start Date End Date Provider, No Known [facility] [address] PCP - General 06/20/24
--- OUTSIDE RECORDS SUMMARY | 2025-09-17 08:34 | XMS_ITS | Clinical Summary ---
Author Organization [facility] ([place], [place], [place], [place], [place]) Address [address] [place] [address] Care Team Providers Care Restorative Care Technician Name Role Phone Uyen Stone Primary Care Provider [phone] France Mejia MD Unavailable Allergies Active Allergy [...] Cancer Mother Jaclyn Meyers Diabetes Mother Jaclyn Brown Heart disease Mother Jaclyn Meyers Rheum arthritis [...] Date John rded Speak language other than Burundian at home Not on file 11/10/2023 Want [...] Screening (12+) 05/0805/08/2024 COVID-19 VACCINE (2 - 2024- season) 06/23/202504/2021 Influenza Vaccine (#1) 2025 DTAP/TDAP/TD VACCINES (2 - Td or Tdap) 10/04/2028 Insurance BLUE CROSS/BLUE SHIELD Care Teams Restorative Care Technician Relationship Specialty Start Date End Date Uyen Stone, SUSHMA [address] [place] [address] PCP - General Physician Chemical Waste Management Technician 12/15/22 France Mejia MD [address] [facility] [address] [place] [address] [facility] 03/10/23
[2025-09-17 09:50] LABS: Hematocrit 38.6 % (37.0-47.0); Hemoglobin 13.0 g/dL (12.2-16.2); Immature Granulocytes % 0 %; Mean Corpuscular HGB Conc 33.7 g/dL (31.8-35.4); Mean Corpuscular Hemoglobin 30.4 pg (27.0-31.2); Mean Corpuscular Volume 90.2 fl (81-99); Nucleated Red Blood Cells % 0 %; Platelet Count 126 K/mm3 (142-424); Red Blood Count 4.28 M/mm3 (4.20-5.40); Red Cell Distribution Width-SD 39.5 fL
[2025-09-17 10:24] LABS: White Blood Count 1.6 K/mm3 (4.8-10.8)
[2025-09-17 11:05] LABS: RBC Morphology Normal; Total Cells Counted 25
== END 2025-09-17 23:59 | disposition home or self-care (01) ==
LOC: LAB 08:29
PROVIDERS: PCP Physician Assistant; Visit Provider Internal Medicine Rheumatology
DX: D72.819 Decreased white blood cell count, unspecified (principal)
CPT/HCPCS: 36415; 85007; 85025